=== PATIENT | female | born 1955 | race Caucasian/White ===

== ENCOUNTER 2020-01-20 14:57 | Emergency (ER) | payer BC ==
--- OUTSIDE RECORDS SUMMARY | 2020-01-20 15:00 | XMS REPORT ---
:1955 Author Organization [facility] Address [address] [place] [address] Phone Allergies, Adverse Reactions, Alerts Allergy Name Reaction Description Start Date Severity Status Provider LEVOQUIN Critical Active Jim Dicks OD SULFA Critical Active Jim Dicks OD Conditions or Problems Problem Name Problem Onset Status Entry Provider Comment Standard Annotate Code Date Date Description Hx of repair of V45.69 Active Jim Other states both eyes tear of retina by 01/08 01/08 Dicks OD following laser surgery of photocoagulation eye and adnexa Myopia - OU 367.1 Active Jim Myopia 01/08 01/08 Dicks OD 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 borderline 01/08 01/08 Dicks OD with findings, high borderline risk, bilateral findings, high risk Pseudophakia - V43.1 Active Jim Lens posterior bilateral 01/08 01/08 Dicks OD replaced by chamber other means IOL right; anterior chamber IOL left 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 Active Jim Regular astigmatism, 01/08 01/08 Dicks OD astigmatism bilateral Medication List Medication Instructions Start Stop Generic NDC Status Provider Patient Date Date Name Instruction ADDERALL AMPHETAMINE-DEXTROAMPHETAMINE 44362802941 Active Jim Active 20 MG Dicks ORAL OD TABLET ESTRADIOL ESTRADIOL 45751218516 Active Jim Active 0.5 MG Dicks ORAL OD TABLET FLONASE FLUTICASONE PROPIONATE 30710333099 Active Jim Active 50 Dicks MCG/ACT OD NASAL SUSPENSIO N HYDROCHLO HYDROCHLOROTHIAZIDE CAPS 95230193781 Active Jim Active ROTHIAZID Dicks E CAPSULE OD PRAVASTAT PRAVASTATIN SODIUM TABS 88635484101 Active Jim Active IN SODIUM Dicks TABLET OD TIMOLOL TIMOLOL MALEATE SOLN 71687151279 Active Jim Active MALEATE Dicks SOLUTION OD ZYRTEC CETIRIZINE HCL TABS 30836437932 Active Jim Active ALLERGY Dicks TABLET OD Procedures Code Procedure Name Date Entry Date Standard Description [id number] New Patient Intermediate [facility] - [address]65 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
--- OUTSIDE RECORDS SUMMARY | 2020-01-20 15:00 | XMS REPORT ---
:1955 Author Organization [facility] Address [address] [place] [id number] Care Team Providers Name Role Phone Unavailable Unavailable Unavailable Problems This patient has no known problems. Allergies, Adverse Reactions, Alerts This patient has no known allergies or adverse reactions. Medications This patient has no known medications.
--- NOTE | 2020-01-20 17:40 | ER ---
Nurse's Notes [facility] Name: Tiffanie Thompson Age: 64 yrs Sex: Female : 1955 Arrival Date: 01/20/2020 Time: 15:05 Bed 12 Private MD: Diagnosis: Pain in hip Presentation: 01/19 15:37 Chief complaint: Patient states: angelica hip pain "for a while". 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 Pt states "I have orders for x-rays but my part was too much and it's getting hard to walk anyway". Coronavirus screen: The patient has NOT traveled to a country currently being monitored by the [facility] [place] 2] within the last 14 days. Ebola Screen: Patient negative for fever greater than or equal to 101.5 degrees Fahrenheit, and additional compatible Ebola Virus Disease symptoms. Initial Sepsis Screen: Does the patient meet any 2 criteria? No. Patient's initial sepsis screen is negative. Does the patient have a suspected source of infection? No. Patient's initial sepsis screen is negative. Risk Assessment: Do you want to hurt yourself or someone else? Patient reports no desire to harm self or others. 15:37 Acuity: AMEYA 4 aa5 15:37 Method Of Arrival: Wheelchair aa5 Historical: - Allergies: 15:40 Levaquin; aa5 15:40 Sulfa (Sulfonamide Antibiotics); aa5 - PMHx: 15:40 Glaucoma; Hyperlipidemia; Hypertension; Kidney stones; aa5 - PSHx: 15:40 Lithotripsy; aa5 - Immunization history:: Adult Immunizations unknown. - Social history:: Smoking status: Patient/guardian denies using tobacco, but has a distant history of tobacco abuse. Screenin:45 Abuse screen: Denies threats or abuse. Denies injuries from another. Nutritional ph screening: No deficits noted. Tuberculosis screening: No symptoms or risk factors identified. Fall Risk None identified. Assessment: 17:45 General: Appears in no apparent distress. comfortable, well groomed, Behavior is calm, ph cooperative, appropriate for age. Pain: Complains of pain in right hip and left hip Pain began " months ago". Neuro: Level of Consciousness is awake, alert, obeys commands, Oriented to person, place, time, situation. Cardiovascular: Capillary refill < 3 seconds in bilateral fingers. Respiratory: Airway is patent Respiratory effort is even, unlabored. Derm: Skin is intact, is healthy with good turgor, Skin is pink, warm \\T\\ dry. 17:58 Reassessment: Patient is alert, oriented x 3, equal unlabored respirations, skin aa5 warm/dry/pink. Vital Signs: 15:37 BP 103 / 65; Pulse 80; Resp 16 S; Temp 98.3(O); Pulse Ox 98% on R/A; Weight 69.4 kg aa5 (R); Height 5 ft. 3 in. (160.02 cm) (R); Pain 8/10; 15:37 Body Mass Index 27.10 (69.40 kg, 160.02 cm) aa5 ED Course: 15:05 Patient arrived in ED. ag5 15:39 Triage completed. aa5 15:39 Arm band placed on. aa5 16:57 Adina Long RN is Primary Nurse. ph 17:06 Abraham Tadeo FNP-C is PHCP. la1 17:06 Gucci Nolan MD is Attending Physician. la1 17:45 Patient has correct armband on for positive identification. Bed in low position. Call ph light in reach. Side rails up X 1. 17:55 No provider procedures requiring assistance completed. Patient did not have IV access ph during this emergency room visit. Administered Medications: No medications were administered Outcome: 17:39 Discharge ordered by . la1 17:58 Medical screen evaluation completed per provider. Patient declined treatment. aa5 17:58 Condition: stable 18:05 Patient left the ED. aa5 Signatures: Liss Riggins RN RN aa5 Abraham Tadeo FNP-C [facility] Center[facility]ina Hannon RN RN Elizabeth Marshall 5
--- NOTE | 2020-01-20 17:41 | EDPHYS ---
Physician Documentation [facility] Name: Tiffanie Thompson Age: 64 yrs Sex: Female : 1955 Arrival Date: 01/20/2020 Time: 15:05 Bed 12 Private MD: ED Physician Gucci Nolan HPI: 01/19 17:40 This 64 yrs old Female presents to ER via Wheelchair with complaints of Hip la1 Pain. 17:40 The patient or guardian reports pain. Chronic PEDRITO hip pain. The complaints affect the la1 left hip and right hip. Onset: The symptoms/episode began/occurred 3 month(s) ago. Modifying factors: The symptoms are alleviated by OTC meds, the symptoms are aggravated by any movement, weight bearing. Associated signs and symptoms: Pertinent negatives: fever, incontinence. Severity of symptoms: At their worst the symptoms were moderate. The patient has not experienced similar symptoms in the past. pt has PEDRITO hip pain for the last few months, reports she was here to have outpatient xrays done but could not afford the copay. Pt was supposed to have PEDRITO hip xrays with weight bearing. Discussed that the patient would benefit from shopping around for cheaper prices and trying to get in with an orthopedic doctor. Historical: - Allergies: 15:40 Levaquin; aa5 15:40 Sulfa (Sulfonamide Antibiotics); aa5 - PMHx: 15:40 Glaucoma; Hyperlipidemia; Hypertension; Kidney stones; aa5 - PSHx: 15:40 Lithotripsy; aa5 - Immunization history:: Adult Immunizations unknown. - Social history:: Smoking status: Patient/guardian denies using tobacco, but has a distant history of tobacco abuse. ROS: 17:42 Constitutional: Negative for fever, chills, and weight loss, Eyes: Negative for injury, la1 pain, redness, and discharge, ENT: Negative for injury, pain, and discharge, Neck: Negative for injury, pain, and swelling, Cardiovascular: Negative for chest pain, palpitations, and edema, Respiratory: Negative for shortness of breath, cough, wheezing, and pleuritic chest pain, Abdomen/GI: Negative for abdominal pain, nausea, vomiting, diarrhea, and constipation, Back: Negative for injury and pain. 17:42 Skin: Negative for injury, rash, and discoloration, Neuro: Negative for headache, weakness, numbness, tingling, and seizure. 17:42 MS/extremity: Positive for pain, of the right hip and left hip. Exam: 17:43 Constitutional: This is a well developed, well nourished patient who is awake, alert, la1 and in no acute distress. Head/Face: Normocephalic, atraumatic. Cardiovascular: No pulse deficits. Respiratory: No increased work of breathing MS/ Extremity: Pulses equal, no cyanosis. Neurovascular intact. pain with ROM of hips, pain with weight bearing. Vital Signs: 15:37 BP 103 / 65; Pulse 80; Resp 16 S; Temp 98.3(O); Pulse Ox 98% on R/A; Weight 69.4 kg aa5 (R); Height 5 ft. 3 in. (160.02 cm) (R); Pain 8/10; 15:37 Body Mass Index 27.10 (69.40 kg, 160.02 cm) aa5 MDM: 17:06 Patient medically screened. la1 17:40 Medical screen evaluation completed. [facility] emergency medical condition absent. la1 17:43 Data reviewed: vital signs, nurses notes. Counseling: I had a detailed discussion with la1 the patient and/or guardian regarding: the historical points, exam findings, and any diagnostic results supporting the discharge/admit diagnosis, the need for outpatient follow up, a orthopedic surgeon, to return to the emergency department if symptoms worsen or persist or if there are any questions or concerns that arise at home. Administered Medications: No medications were administered Disposition: 18:25 Co-signature as Attending Physician, Gucci Nolan MD. rn Disposition: 01/20/20 17:39 Discharged to Home as Medical Screen. Impression: Pain in hip. - Condition is Stable. - Medication Reconciliation Form, Thank You Letter, Antibiotic Education, Prescription Opioid Use form. - Follow up: Private Physician; When: 1 week; Reason: Recheck today's complaints, Re-evaluation by your physician. - Problem is an ongoing problem. - Symptoms are unchanged. Signatures: Gucci Nolan MD MD rn Calderon, Audri, RN RN aa5 Abraham Tadeo, FINISH CLEANER-C FINISH CLEANER-Cla1 Corrections: (The following items were deleted from the chart) 18:05 17:39 01/20/2020 17:39 Discharged to Home as Medical Screen. Impression: Pain in hip. aa5 Condition is Stable. Forms are Medication Reconciliation Form, Thank You Letter, Antibiotic Education, Prescription Opioid Use. Follow up: Private Physician; When: 1 week; Reason: Recheck today's complaints, Re-evaluation by your physician. Problem is an ongoing problem. Symptoms are unchanged. la1
[2020-01-20 18:27] VITALS: BP 103/65; TEMP 98.3; O2SAT 98
== END 2020-01-20 18:05 | disposition home or self-care (01) ==
LOC: ER 14:57
DX: M25.552 Pain in left hip (principal); I10 Essential (primary) hypertension; Z88.1 Allergy status to other antibiotic agents; Z88.2 Allergy status to sulfonamides
CPT/HCPCS: 99281

== ENCOUNTER 2023-01-25 06:54 | Inpatient (IN) | payer MEDICARE ==
[2023-01-20 11:05] LABS: Absolute Lymphocytes (CBC) 2.3 K/uL (0.7-4.9); Hematocrit 37.2 % (36.0-45.0); Lymphocytes % 32.6 % (15.3-44.8); MCV 90.8 fL (80-100); MPV 6.5 fL (7.6-11.3)
[2023-01-20 11:10] LABS: Protime INR 0.96
[2023-01-20 11:19] LABS: Albumin 3.7 g/dL (3.4-5.0); Bilirubin Total 0.4 mg/dL (0.2-1.0); Potassium 3.3 mmol/L (3.5-5.1); Protein, Total 7.4 g/dL (6.4-8.2)
[2023-01-20 11:33] LABS: Specific Gravity 1.013 (1.005-1.030); Urine Bacteria <20 /HPF (<20); Urine Bilirubin NEGATIVE (Negative); Urine Blood Negative (Negative); Urine Clarity Clear (Clear); Urine Color Light-Yellow (Yellow); Urine Glucose NEGATIVE (Negative); Urine Protein NEGATIVE (Negative); Urine RBC <5 /HPF (None Seen); Urine Urobilinogen Normal (Normal); Urine pH 6.5 (5.0-7.0)
--- NOTE | 2023-01-20 12:36 | RAD REPORT ---
EXAM DESCRIPTION: [facility] Pa And Lat (2 Views)01/20/2023 10:46 am CLINICAL HISTORY: pre op right total hip COMPARISON: Chest Pa And Lat (2 Views) dated 12/18/2017; Chest Single View dated 03/03/2016; CHEST SING LE VIEW dated 10/10/2012; CHEST PA AND LAT 2 VIEW dated 12/20/2008 TECHNIQUE: PA and lateral views of the chest. FINDINGS: The lungs are clear. No pneumothorax or effusion. The cardiomediastinal contours are unrem arkable. IMPRESSION: No acute cardiopulmonary process.
[2023-01-25] MEDS ORDERED: CELECOXIB 100 MG CAPSULE ONE (07:02)
[2023-01-25] MEDS ORDERED: GABAPENTIN 100 MG CAP ONE (07:03)
[2023-01-25] MEDS ORDERED: Oxycodone HCl/Acetaminophen 1 TAB TAB ONE (07:03)
[2023-01-25] MEDS ORDERED: Ringers Lactate 1,000 ML IV ONE ×3 (07:04→11:34)
[2023-01-25] MEDS ORDERED: ACETAMINOPHEN 500 MG TAB ONE (07:04)
[2023-01-25] MEDS ORDERED: BUPIVACAINE 0.75% (PF) 2 ML SP ONE (07:04)
[2023-01-25] MEDS ORDERED: MIDAZOLAM HCL 2 MG/2 ML INJ ONE (07:07)
[2023-01-25] MEDS ORDERED: FENTANYL CITR 100 MCG/2 ML ONE (07:07)
[2023-01-25] MEDS ORDERED: propofoL 200 MG/20 ML VIAL IV ONE (07:07)
[2023-01-25] MEDS ORDERED: LIDOCAINE 2% MPF 5 ML VIAL ONE (07:08)
[2023-01-25] MEDS ORDERED: ONDANSETRON 4 MG/2 ML VIAL ONE (07:10)
[2023-01-25] MEDS ORDERED: EPINEPHRINE/PF 1 MG/ML AMP ONE (07:10)
[2023-01-25] MEDS ORDERED: MORPHINE SULFATE/PF 1 MG/ML (10 ML AMP) ONE (07:30)
[2023-01-25] MEDS: CEFAZOLIN SODIUM 2 GM/VIAL ONE ×2 (07:32→07:45)
[2023-01-25] MEDS: TRANEXAMIC ACID 1,000 MG/10 ML VIAL IV ONE ×4 (07:45→08:43)
[2023-01-25] MEDS ORDERED: EPHEDRINE SULF 50 MG/ML VIAL ONE ×2 (07:55→09:59)
[2023-01-25] MEDS ORDERED: Phenylephrine HCl 10 MG/ML 1 ML VIAL ONE (07:59)
[2023-01-25] MEDS ORDERED: GLYCOPYRROLATE 0.2 MG/ML SYR ONE (08:11)
[2023-01-25] MEDS ORDERED: dexAMETHasone 10 MG/ML VIAL ONE (08:17)
[2023-01-25] MEDS ORDERED: NS 0.9% VIAL 10 ML ONE ×2 (08:53→11:04)
[2023-01-25] MEDS ORDERED: ALBUMIN HUMAN 25% 100 ML IV ONE (10:43)
[2023-01-25] MEDS ORDERED: CEFAZOLIN SODIUM 1 GM/VIAL ONE (11:04)
[2023-01-25] MEDS ORDERED: KETOROLAC 30 MG/ML INJ ONE (11:15)
[2023-01-25] MEDS ORDERED: DOCUSATE NA 100 MG CAP PO PRN (11:15)
--- NOTE | 2023-01-25 11:15 | P.BOP ---
Preoperative diagnosis: right hip severe arhritis Postoperative diagnosis: same Primary procedure: right total hip arthoplasty Estimated blood loss: 200 ccs Anesthesia: General Complications: None Condition: Good
--- NOTE | 2023-01-25 11:29 | RAD REPORT ---
EXAM DESCRIPTION: RAD - Hip Right 1 View - 01/25/2023 10:45 am CLINICAL HISTORY: TOTAL HIP REPLACEMENT IN OR 5 COMPARISON: No comparisons FINDINGS: Intraoperative radiographs submitted right total hip arthroplasty procedure in progress. N o unexpected finding.
--- OUTSIDE RECORDS SUMMARY | 2023-01-25 11:58 | XMS REPORT | Continuity of Care Document ---
:[address] [facility] t Address [address] [facility] [place] [address] Care Team Providers Name Role Phone Heavenly Staley Primary Care Physician [phone] Nerissa Gutiérrez Attending Clinician Unavailable Anjali Gill Attending Clinician JIM_Herve Attending Clinician Unavailable Conner [place] Attending Clinician [phone] Hanny Arrington Attending Clinician Unavailable Jim Domínguez Attending Clinician [phone] Anna Cannon Attending Clinician Unavailable Kaushal MCGILL, Stefani Russell Attending Clinician Soraida Barreto Attending Clinician [phone] STEFANI PALM Attending Clinician Unavailable Hanny Arrington Attending Clinician Unavailable Neeta Larry Attending Clinician Unavailable Tasha Garza Attending Clinician Unavailable Doctor Unassigned, Cordry [place] Attending Clinician Unavailable Suzette Trevino Attending Clinician Unavailable Anna Cannon Attending Clinician Unavailable Rhiannon Hensley Attending Clinician Unavailable Moses, Liz Attending Clinician Unavailable OW_Herve Admitting Clinician Unavailable Conner [place] Unavailable [phone] Jim Domínguez Unavailable [phone] Payers Payer Name Policy Type Policy Number Effective Date Expiration Date S ource [employer] [id number] 2022 (MEDICARE 00:00:00 REPLACEMENT HMO) [employer] CI [id number] 2021 2022 [facility] (MEDICARE 00:00:00 00:00:00 Community REPLACEMENT HMO) Health [employer] CI [id number] 2020 2021 [facility] (MEDICARE 00:00:00 00:00:00 Community REPLACEMENT HMO) Health Problems Condition Condition Condition Status Onset Resolution Last Treating Co mments Source Name Details Category Date Date Treatment Clinician Date Keratitis, Condition Active 2019-112020-08-28 Cj [place] punctate 0-15 12:20:16 Conner Martin uni 00:00: ty 00 Health Encounter Encounter Disease Active Uni vers for for 8-18 [place] of [place] 00 [facility] for breast for breast Br anch cancer cancer History of History of Disease Active U nivers UTI UTI 8-18 ity of 00:00: [place] 00 Medical Branch Primary Condition Active 2021-04-01 Azar [place] egrosas open-angle 06-17 20:04:59 Conner Fay Co mmuni glaucoma, 00:00: ty bilateral, 00 Health moderate stage Hx of Condition Active 2020-06-17 [place], both eyes [facility] repair of 01-08 14:52:39 Jim Commu ni tear of 00:00: ty retina by 00 Health laser photocoagu lation Pseudophak Condition Active 2020-06-17 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, 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 [facility] ia - 2- 14:52:39 Jim chamber Communi bilateral 00:00: IOL ty 00 right; Health anterior chamber IOL left Regular Condition Active 2020-06-17 Bess Domínguez ortiz astigmatis 01-08 14:52:39 Jim Comm uni m, 00:00: ty bilateral 00 Health Myopia - Condition Active 2020-06-17 Azar Domínguez egacy OU 01-08 14:52:39 Jim Communi 00:00: ty 00 Health Vaginal Vaginal Disease Active Univers pessary pessary 02-03 ity of present present 00:00: [place] 00 Medical Branch Screening Screening Disease Active Overview: Univers for for 12-16 Added ity of colorectal colorectal 00:00: automatic [place] cancer cancer 00 ally from Medical request Branch for surgery [id number] 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 U nivers a of a of 07 ity of uterus uterus 00:00: [place] 00 Medical Branch Essential Essential Disease Active 2016-11 Uni vers hypertensi hypertensi 11-20 it y of on, benign [place] benign [place] [facility] [place] Vaginal Vaginal Disease Active 2016-11 Univers atrophy atrophy 11-20 ity of 00:00: [place] 00 Medical Branch Postmenopa Postmenopa Disease Active 2016-11 U nivers usal usal 07 ity of bleeding bleeding 00:00: [place] 00 [facility] Branch Vaginal Vaginal Disease Active 2016-11 Univers ulcer ulcer 11-20 ity of 00:00: [place] 00 [facility] Branch Cervical Cervical Disease Active 2016-11 Unive rs discharge discharge 11-20 ity of 00:00: [place] 00 [facility] Branch V76.11 - V76.11 - Diagnosis Active 2013-08-06 Memoria SCREEN SCREEN 08-02 14:22:00 l MAMMOGRA MAMMOGRA 00:01: Elvis n Active 00 08/02/2013 OPID [place] [id number] History of Problem C ommon 9106 gastroesop Spirit hageal - [facility] reflux [facility] (GERD) [facility] [id number] Primary Problem Commo n osteoarthr Spirit itis of - [facility] both hips [facility] [id number] Vaginal Problem Commo n prolapse [facility] - [facility] [id number] Hypertensi Problem Com mon on, Spirit unspecifie - [facility] d type [facility] [id number] Dyslipidem Problem Co mmon ia Spirit - [facility] [id number] Current Problem Common moderate Spirit episode of - [facility] major [facility] prior episode [id number] Glaucoma Problem Commo n of both Spirit eyes, - [facility] unspecifie [facility] d glaucoma [facility] Center Allergies, Adverse Reactions, Alerts Allergy Allergy Status Severity Reaction(s) Onset Inactive Treating Comm ents Source Name Type Date Date Clinician [place] - Propensi Active Intraven ty to 6-10 ous adverse 00:00: reaction 00 to drug Banana Propensi Active (Diagnos ty to 3-28 tic) - adverse 00:00: Injectio reaction 00 n to drug Levaquin Propensi Active ty to 1-24 adverse 00:00: reaction 00 to drug BANANA Food Active High [facility] allergy Criticali 8-04 Commun i (disorde ty 00:00: ty r) 00 Health LEVOQUIN Drug Active High [facility] allergy Criticali 2-25 Commun i (disorde ty 00:00: ty r) 00 Health SULFA Drug Active High [facility] allergy Criticali 2-25 Commun i (disorde ty 00:00: ty r) 00 Health Banana Propensi Active Unknown - Unive rs ty to See comments 201 ity of adverse 00:00: [place] reaction 00 Medical s Branch BANANA DRUG Active Unknown-Cmnt Univ ers INGREDI 201 ity of 00:00: [place] 00 Medical Branch SULFA Drug Active Rash 2015-11 Univers (SULFONA Class 0-11 ity of MIDE 00:00: [place] ANTIBIOT 00 Medical ICS) Branch Levoflox Propensi Active Itching 2015-11 Unive rs acin ty to 0-11 ity of adverse 00:00: [place] reaction 00 Medical s Branch Sulfa Propensi Active Rash 2015-11 Univers (Sulfona ty to 0-11 ity of mide adverse 00:00: [place] Antibiot reaction 00 Medica l ics) s Branch LEVOFLOX DRUG Active ITCHING 2015-11 Univers ACIN INGREDI 0-11 ity of 00:00: [place] 00 Medical Branch Banana Propensi Active ty to 1-13 adverse 00:00: reaction 00 to drug [id number] Drug Active itching Common allergy Spirit - [facility] banana banana Active rash Common allergen allergen Spirit ic ic - [facility] extract extract [facility] 0 Drug Active rash Common allergy Spirit - [facility] Social History Social Habit Start Date Stop Date Quantity Comments Source History of Common [facility] - Tobacco Use [facility] Sex Assigned At Common Sp raúl - [facility] History SDOH University o f Alcohol Binge [place] Medic al Branch Exposure to Not sure University of SARS-CoV-2 [place] [facility] (event) Branch History SDOH University o f Alcohol Frequency [place] M edical [facility] History SDOH University o f Alcohol Std [place] [facility] Drinks Branch time of call 2022-03-08 2022-03-08 03/08/2022 2:37 [facility] 14:36:42 14:36:42 PM Health Alcohol intake 2020-07-01 2020-07-01 Current drinker Unive rsity of 00:00:00 00:00:00 of alcohol [place] [facility] (finding) Branch Alcohol Comment 2017-09-20 2017-09-20 Very rare Universit y of 00:00:00 00:00:00 [facility] Tobacco Comment 2017-09-20 2017-09-20 quit 1981 Universit y of 00:00:00 00:00:00 [facility] Tobacco use and 2017-09-20 2017-09-20 Never used Universit y of exposure 00:00:00 00:00:00 [facility] Smoking Status Start Date Stop Date Source Former Smoker 2022-11-22 00:00:00 2022-11-22 00:00:00 Common S pirit - [facility] Medications Ordered Filled Start Stop Current Ordering Indication Dosage Frequency Signature Comments Components Source Medication Medication Date Date Medication? Clinician (SIG) Name Name TAKE No DIRECTED. 9- 00:00: 00 TAKE 1 2021-0 No TABLET BY 9-23 MOUTH ONCE 00:00: DAILY 00 TAKE 1 2021-0 No TABLET BY 8-17 MOUTH ONCE 00:00: DAILY 00 Dose 2021-0 No Unknown - 00:00: 00 lisinopril 2021- No 1mg 20 7-14 mg-hydrochl 00:00: orothiazide 00 25 mg tablet Dose 2021- No Unknown 7-14 00:00: 00 Dose 2021-0 No Unknown 6-28 00:00: 00 atorvastati 2021-0 No 1mg n 10 mg 6-17 tablet 00:00: 00 lisinopril 2021-0 No 1mg 20 6-10 mg-hydrochl 00:00: orothiazide 00 25 mg tablet (LATANOPROS 0 Yes Conner Fay INSTILL 1 [facility] T) 0.005 % 6-08 [place] DROP INTO Co mmuni SOLN 00:00: EACH EYE ty 00 AT NIGHT Health lisinopril 0 No 1mg 20 4-29 mg-hydrochl 00:00: orothiazide 00 25 mg tablet Dose 2021-0 No Unknown 3-28 00:00: 00 Dose 2021-0 No Unknown 3-28 00:00: 00 Dose 2021-0 No Unknown 3-28 00:00: 00 Dose 2021-0 No Unknown 3-28 00:00: 00 Dose 2-0 No Unknown 3-28 00:00: 00 Dose 2-0 No Unknown 3-28 00:00: 00 Dose 2-0 No Unknown 3-28 00:00: 00 Dose 2-0 No Unknown 3-28 00:00: 00 Dose 2-0 No Unknown 3-28 00:00: 00 Dose 2-0 No Unknown 3-28 00:00: 00 Dose 2-0 No Unknown 3-28 00:00: 00 Dose 2-0 No Unknown 3-28 00:00: 00 Dose 2-0 No Unknown 3-28 00:00: 00 Dose 2-0 No Unknown 3-28 00:00: 00 Dose 2-0 No Unknown 3-28 00:00: 00 lisinopril 2021-0 No 1mg 20 1-24 mg-hydrochl 00:00: orothiazide 00 25 mg tablet (PREDNISOLO 2020-11 Yes Conner Fay Instill 1 [facility] NE ACETATE) 1-08 [place] drop into C ommuni 1 % SUSP 00:00: left eye ty 00 twice a Health day (TOBRAMYCIN 2020-11 Yes Jim Domínguez Instill 1 [facility] ) 0.3 % 0-05 drop into Communi SOLN 00:00: affected ty 00 eye four Health times a day (PREDNISOLO 2019-11- No Jim Domínguez 1{Drop} 4xD Instill 1 [facility] NE ACETATE) 0-15 11-08 drop into Co mmuni 1 % SUSP 00:00: 00:00 left eye ty 00 :00 four times Health a day estradioL 1 Yes [id number] Insert Univers mg tablet 8-18 once ity of 00:00: quarter in [place] 00 the vagina Medical after Branch moistening with water twice weekly (say /Tue) at bedtime. estradioL 1 Yes [id number] Insert Univers mg tablet 8-18 once ity of 00:00: quarter in [place] 00 the vagina Medical after Branch moistening with water twice weekly (say /Tue) at bedtime. estradioL 1 Yes [id number] Insert Univers mg tablet 8-18 once ity of 00:00: quarter in [place] 00 the vagina Medical after Branch moistening with water twice weekly (say /Tue) at bedtime. estradioL 1 Yes [id number] Insert Univers mg tablet 8-18 once ity of 00:00: quarter in [place] 00 the vagina Medical after Branch moistening with water twice weekly (say /Tue) at bedtime. estradioL 1 Yes [id number] Insert Univers mg tablet 8-18 once ity of 00:00: quarter in [place] 00 the vagina Medical after Branch moistening with water twice weekly (say /Tue) at bedtime. TIMOLOL Yes Conner Fay 2{Drop} 2xD 1 drop in [facility] MALEATE 06-17 [place] both eyes Commu ni (ONCE-DAILY 00:00: Twice a ty ) (TIMOLOL Health MALEATE) 0.5 % SOLN (LATANOPROS 2021- No Conner Fay 2{Drop} 1xD 1 drop in [facility] T) 0.005 % 06-17 06-08 [place] both eyes C ommuni SOLN 00:00: 00:00 at night ty 00 :00 Health triamcinolo Yes [id number] Apply to [facility] ne -02 area(s) 3 ity of acetonide 00:00: (three) [place] 0.1 % 00 times Medical ointment daily. Branch triamcinolo Yes [id number] Apply to Univers ne -02 area(s) 3 ity of acetonide 00:00: (three) [place] 0.1 % 00 times Medical ointment daily. Branch triamcinolo 2020-0 Yes [id number] Apply to [facility] 1-02 area(s) 3 ity of acetonide 00:00: (three) [place] 0.1 % 00 times Medical ointment daily. Branch triamcinolo 2020-0 Yes [id number] Apply to [facility] ne 1-02 area(s) 3 ity of acetonide 00:00: (three) [place] 0.1 % 00 times Medical ointment daily. Branch triamcinolo 2020-0 Yes [id number] Apply to [facility] 1-02 area(s) 3 ity of acetonide 00:00: (three) [place] 0.1 % 00 times Medical ointment daily. Branch triamcinolo 2020-0 Yes [id number] Apply to [facility] 1-02 area(s) 3 ity of acetonide 00:00: (three) [place] 0.1 % 00 times Medical ointment daily. Branch estradiol 1 Yes [id number] Insert Univers mg tablet 05-14 once ity of 00:00: quarter in [place] 00 the vagina Medical after Branch moistening with water twice weekly (say Tu/Tue) at bedtime. estradiol 1 2020- No [id number] Insert Univers mg tablet 05-14 once ity of 00:00: 00:00 quarter in [place] 00 :00 the vagina Medical after Branch moistening with water twice weekly (say Tu/Tue) at bedtime. estradiol 1 2020- No [id number] Insert Univers mg tablet 05-14 once ity of 00:00: 00:00 quarter in [place] 00 :00 the vagina Medical after Branch moistening with water twice weekly (say Tu/Tue) at bedtime. ADDERALL 2018- Yes [facility] (AMPHETAMIN 2-25 Communi E-DEXTROAMP 00:00: ty HETAMINE) 00 Health 20 MG TABS (ESTRADIOL) 2018-0 Yes [facility] 0.5 MG TABS 2-25 Communi 00:00: ty 00 Health ZYRTEC 2018-0 Yes [facility] ALLERGY 2-25 Communi (CETIRIZINE 00:00: ty HCL TABS) 00 Health TABS FLONASE 50 2018-0 Yes [facility] MCG/ACT 2-25 Communi NASAL 00:00: ty SUSPENSION 00 Health PRAVASTATIN 2018- Yes [facility] SODIUM 2-25 Communi (PRAVASTATI 00:00: ty N SODIUM 00 Health TABS) TABS HYDROCHLORO 2018- Yes [facility] THIAZIDE 2-25 Communi (HYDROCHLOR 00:00: ty OTHIAZIDE 00 Health CAPS) CAPS TIMOLOL Yes [facility] MALEATE 2-25 Communi (TIMOLOL 00:00: ty MALEATE 00 Health SOLN) SOLN Oxyquinolin Yes [id number] .5{appl Insert 0.5 Univers e-Na Lauryl 1-15 04 icator} Applicator ity of Sulfate 00:00: s into [place] ([facility] 00 vagina Medical JELLY) SEE-INSTRU Branch 0.025-0.01 CTIONS. % Gel Apply 1/2 applicator per vagina twice weekly until discontinu e Oxyquinolin Yes [id number] .5{appl Insert 0.5 Univers e-Na Lauryl 1-15 04 icator} Applicator ity of Sulfate 00:00: s into [place] ([facility] 00 vagina Medical JELLY) SEE-INSTRU Branch 0.025-0.01 CTIONS. % Gel Apply 1/2 applicator per vagina twice weekly until discontinu e Oxyquinolin Yes [id number] .5{appl Insert 0.5 Univers e-Na Lauryl 1-15 04 icator} Applicator ity of Sulfate 00:00: s into [place] ([facility] 00 vagina Medical JELLY) SEE-INSTRU Branch 0.025-0.01 CTIONS. % Gel Apply 1/2 applicator per vagina twice weekly until discontinu e Oxyquinolin Yes [id number] .5{appl Insert 0.5 Univers e-Na Lauryl 1-15 04 icator} Applicator ity of Sulfate 00:00: s into [place] ([facility] 00 vagina Medical JELLY) SEE-INSTRU Branch 0.025-0.01 CTIONS. % Gel Apply 1/2 applicator per vagina twice weekly until discontinu e Oxyquinolin Yes [id number] .5{appl Insert 0.5 Univers e-Na Lauryl 1-15 04 icator} Applicator ity of Sulfate 00:00: s into [place] ([facility] 00 vagina Medical JELLY) SEE-INSTRU Branch 0.025-0.01 CTIONS. % Gel Apply 1/2 applicator per vagina twice weekly until discontinu e Oxyquinolin Yes [id number] .5{appl Insert 0.5 Univers e-Na Lauryl 1-15 04 icator} Applicator ity of Sulfate 00:00: s into [place] ([place] 00 vagina Medical JELLY) SEE-INSTRU Branch 0.025-0.01 CTIONS. % Gel Apply 1/2 applicator per vagina twice weekly until discontinu e amphetamine Yes Univer s -dextroamph 6-16 ity of etamine 30 00:00: [place] mg 24 hr 00 Medical capsule Branch amphetamine 0 2020- No Unive rs -dextroamph 6-16 -18 ity of etamine 30 00:00: 00:00 [place] mg 24 hr 00 :00 Medical capsule Branch amphetamine 2017-0 2020- No Unive rs -dextroamph 04-29-18 ity of etamine 30 00:00: 00:00 [place] mg 24 hr 00 :00 Medical capsule Branch esomeprazol 0 Yes Univer s e 20 mg 2-25 ity of capsule 00:00: Medical Branch esomeprazol 20180 Yes Univer s e 20 mg 2-25 ity of capsule 00:00: Medical Branch esomeprazol 2018-0 Yes Univer s e 20 mg 2-25 ity of capsule 00:00: Medical Branch esomeprazol 2018-0 Yes Univer s e 20 mg 2-25 ity of capsule 00:00: Medical Branch esomeprazol 20180 Yes Univer s e 20 mg 2-25 ity of capsule 00:00: [place] [facility] esomeprazol 20180 Yes Univer s e 20 mg 2-25 ity of capsule 00:00: [place] [facility] NexIUM 20 NexIUM 20 2018-0 No 1{capsu QD NexIUM 20 MG MG 2-25 le} MG 00:00: 00 NexIUM 20 NexIUM 20 2018-0 No 1{capsu QD NexIUM 20 MG MG 2-25 le} MG 00:00: 00 NexIUM 20 NexIUM 20 2018-0 No 1{capsu QD NexIUM 20 MG MG 2-25 le} MG 00:00: 00 NexIUM 20 NexIUM 20 2018-0 No 1{capsu QD NexIUM 20 MG MG 2-25 le} MG 00:00: 00 NexIUM 20 NexIUM 20 20180 No 1{capsu QD NexIUM 20 MG MG 2-25 le} MG 00:00: 00 estradiol 2016-11 Yes [id number] 2g Insert 2 g Univers 0.01 % (0.1 1-07 into ity of mg/gram) 00:00: vagina [place] vaginal 00 SEE-INSTRU Medica l cream CTIONS. Branch estradiol 2016-11 2020- No [id number] 2g Insert 2 g Univers 0.01 % (0.1 1-07 08-18 into ity of mg/gram) 00:00: 00:00 vagina [place] vaginal 00 :00 SEE-INSTRU Medica l cream CTIONS. Branch estradiol 2016-11 2020- No [id number] 2g Insert 2 g Univers 0.01 % (0.1 1-07 08-18 into ity of mg/gram) 00:00: 00:00 vagina [place] vaginal 00 :00 SEE-INSTRU Medica l cream CTIONS. Branch lisinopril- 2016-11 Yes Univer s hydrochloro 0-05 ity of thiazide 00:00: [place] 20-25 mg 00 Medical per tablet Branch pravastatin 2016-11 Yes Univer s 40 mg 0-05 ity of tablet 00:00: [place] 00 Medical Branch lisinopril- 2016-11 Yes Univer s hydrochloro 0-05 ity of thiazide 00:00: [place] 20-25 mg 00 Medical per tablet Branch pravastatin 2016-11 Yes Univer s 40 mg 0-05 ity of tablet 00:00: [place] 00 Medical Branch lisinopril- 2016-11 Yes Univer s hydrochloro 0-05 ity of thiazide 00:00: [place] 20-25 mg 00 Medical per tablet Branch pravastatin 2016-11 Yes Univer s 40 mg 0-05 ity of tablet 00:00: [place] 00 Medical Branch lisinopril- 2016-11 Yes Univer s hydrochloro 0-05 ity of thiazide 00:00: [place] 20-25 mg 00 Medical per tablet Branch pravastatin 2016-11 Yes Univer s 40 mg 0-05 ity of tablet 00:00: [place] 00 Medical Branch lisinopril- 2016-11 Yes Univer s hydrochloro 0-05 ity of thiazide 00:00: [place] 20-25 mg 00 Medical per tablet Branch pravastatin 2016-11 Yes Univer s 40 mg 0-05 ity of tablet 00:00: [place] 00 Medical Branch lisinopril- 2016-11 Yes Univer s hydrochloro 0-05 ity of thiazide 00:00: [place] 20-25 mg 00 Medical per tablet Branch pravastatin 2016-11 Yes Univer s 40 mg 0-05 ity of tablet 00:00: [place] 00 [facility] Branch Premarin 2015-0 No 1mg/gra 0.625 8-02 m mg/gram 00:00: vaginal 00 cream nitrofurant 2015-0 No 1mg oin 1-13 macrocrysta 00:00: l 100 mg 00 capsule Cosopt 22.3 2015-0 No 1mg/mL mg-6.8 1-13 mg/mL eye 00:00: drops 00 Cosopt 22.3 2015-0 No 1mg/mL mg-6.8 1-13 mg/mL eye 00:00: drops 00 lisinopril 2015-0 No 1mg 20 1-13 mg-hydrochl 00:00: orothiazide 00 25 mg tablet hydroCHLORO hydroCHLORO No hydroCHLOR thiazide thiazide Othiazide Potassium Potassium No Potassium Latanoprost Latanoprost No Latanopros 0.005 % 0.005 % t 0.005 % Lisinopril- Lisinopril- No Lisinopril hydroCHLORO hydroCHLORO -hydroCHLO thiazide thiazide ROthiazide 20-25 MG 20-25 MG 20-25 MG Multivitami Multivitami No Multivitam n n in Azithromyci Azithromyci No QD Azithromyc n 250 MG n 250 MG in 250 MG Potassium Potassium No Potassium hydroCHLORO hydroCHLORO No hydroCHLOR thiazide thiazide Othiazide Atorvastati Atorvastati No Atorvastat n Calcium n Calcium in Calcium 10 MG 10 MG 10 MG Lisinopril- Lisinopril- No Lisinopril hydroCHLORO hydroCHLORO -hydroCHLO thiazide thiazide ROthiazide 20-25 MG 20-25 MG 20-25 MG Cosopt Cosopt No Cosopt Multivitami Multivitami No Multivitam n n in Latanoprost Latanoprost No Latanopros 0.005 % 0.005 % t 0.005 % Pravastatin Pravastatin No 1{table QD Pravastati Sodium 40 Sodium 40 t} n Sodium MG MG 40 MG Azithromyci Azithromyci No QD Azithromyc n 250 MG n 250 MG in 250 MG Potassium Potassium No Potassium hydroCHLORO hydroCHLORO No hydroCHLOR thiazide thiazide Othiazide Atorvastati Atorvastati No Atorvastat n Calcium n Calcium in Calcium 10 MG 10 MG 10 MG Lisinopril- Lisinopril- No Lisinopril hydroCHLORO hydroCHLORO -hydroCHLO thiazide thiazide ROthiazide 20-25 MG 20-25 MG 20-25 MG Cosopt Cosopt No Cosopt Multivitami Multivitami No Multivitam n n in Latanoprost Latanoprost No Latanopros 0.005 % 0.005 % t 0.005 % Pravastatin Pravastatin No 1{table QD Pravastati Sodium 40 Sodium 40 t} n Sodium MG MG 40 MG Azithromyci Azithromyci No QD Azithromyc n 250 MG n 250 MG in 250 MG Potassium Potassium No Potassium hydroCHLORO hydroCHLORO No hydroCHLOR thiazide thiazide Othiazide Atorvastati Atorvastati No Atorvastat n Calcium n Calcium in Calcium 10 MG 10 MG 10 MG Lisinopril- Lisinopril- No Lisinopril hydroCHLORO hydroCHLORO -hydroCHLO thiazide thiazide ROthiazide 20-25 MG 20-25 MG 20-25 MG Cosopt Cosopt No Cosopt Multivitami Multivitami No Multivitam n n in Latanoprost Latanoprost No Latanopros 0.005 % 0.005 % t 0.005 % Pravastatin Pravastatin No 1{table QD Pravastati Sodium 40 Sodium 40 t} n Sodium MG MG 40 MG Atorvastati Atorvastati No Atorvastat n Calcium n Calcium in Calcium 10 MG 10 MG 10 MG Azithromyci Azithromyci No QD Azithromyc n 250 MG n 250 MG in 250 MG Cosopt Cosopt No Cosopt Pravastatin Pravastatin No 1{table QD Pravastati Sodium 40 Sodium 40 t} n Sodium MG MG 40 MG hydroCHLORO hydroCHLORO No hydroCHLOR thiazide thiazide Othiazide Potassium Potassium No Potassium Latanoprost Latanoprost No Latanopros 0.005 % 0.005 % t 0.005 % Lisinopril- Lisinopril- No Lisinopril hydroCHLORO hydroCHLORO -hydroCHLO thiazide thiazide ROthiazide 20-25 MG 20-25 MG 20-25 MG Multivitami Multivitami No Multivitam n n in Atorvastati Atorvastati No Atorvastat n Calcium n Calcium in Calcium 10 MG 10 MG 10 MG Azithromyci Azithromyci No QD Azithromyc n 250 MG n 250 MG in 250 MG Cosopt Cosopt No Cosopt Pravastatin Pravastatin No 1{table QD Pravastati Sodium 40 Sodium 40 t} n Sodium MG MG 40 MG Vital Signs Vital Name Observation Time Observation Value Comments Source height 2022-11-22 10:30:00 65 [in_i] [facility] weight 2022-11-22 10:30:00 167 [lb_av] [facility] temperature 2022-11-22 10:30:00 98.3 [degF] Common [facility] bmi 2022-11-22 10:30:00 27.79 kg/m2 [facility] blood pressure 2022-11-22 10:30:00 121 mm[Hg] [facility] - systolic [facility] blood pressure 2022-11-22 10:30:00 78 mm[Hg] [facility] - diastolic [facility] height 2022-10-25 11:00:00 65 [in_i] Common [facility] weight 2022-10-25 11:00:00 167.6 [lb_av] Common [facility] - [facility] temperature 2022-10-25 11:00:00 97.7 [degF] Common [facility] bmi 2022-10-25 11:00:00 27.89 kg/m2 [facility] oximetry 2022-10-25 11:00:00 98 % Common S pirit - [facility] respiratory rate 2022-10-25 11:00:00 17 /min Comm on [facility] - [facility] blood pressure 2022-10-25 11:00:00 122 mm[Hg] [facility] - systolic [facility] blood pressure 2022-10-25 11:00:00 78 mm[Hg] [facility] - diastolic [facility] Systolic blood 2020-07-01 20:51:00 118 mm[Hg] Univer sity of [facility] Diastolic blood 2020-07-01 20:51:00 78 mm[Hg] Unive rsity of [facility] Heart rate 2020-07-01 20:51:00 69 /min [facility] Body temperature 2020-07-01 20:51:00 36.94 [facility] Respiratory rate 2020-07-01 20:51:00 18 /min [facility] Body height 2020-07-01 20:51:00 156.2 cm [facility] Body weight 2020-07-01 20:51:00 66.134 kg [facility] BMI 2020-07-01 20:51:00 27.10 kg/m2 [facility] BP Systolic 2022-08-10 11:07:00 146 mm[Hg] BP Diastolic 2022-08-10 11:07:00 91 mm[Hg] Weight Measured 2022-08-10 11:07:00 168.50 pounds Height Measured 2022-08-10 11:07:00 63.00 inches Body Temperature 2022-08-10 11:07:00 98.50 degrees Heart Rate 2022-08-10 11:07:00 65.00 /min Respiratory Rate 2022-08-10 11:07:00 24.00 /min BP Systolic 2022-04-28 09:43:00 133 mm[Hg] BP Diastolic 2022-04-28 09:43:00 78 mm[Hg] Weight Measured 2022-04-28 09:43:00 169.40 pounds Height Measured 2022-04-28 09:43:00 63.00 inches Body Temperature 2022-04-28 09:43:00 97.80 degrees Heart Rate 2022-04-28 09:43:00 80.00 /min Respiratory Rate 2022-04-28 09:43:00 Respiratory Rate 2022-02-08 10:10:00 BP Systolic 2022-02-08 10:10:00 125 mm[Hg] BP Diastolic 2022-02-08 10:10:00 77 mm[Hg] Weight Measured 2022-02-08 10:10:00 165.20 pounds Height Measured 2022-02-08 10:10:00 63.00 inches Body Temperature 2022-02-08 10:10:00 98.70 degrees Heart Rate 2022-02-08 10:10:00 86.00 /min BP Systolic 2021-12-07 14:11:00 143 mm[Hg] BP Diastolic 2021-12-07 14:11:00 83 mm[Hg] Weight Measured 2021-12-07 14:11:00 167.60 pounds Height Measured 2021-12-07 14:11:00 63.00 inches Body Temperature 2021-12-07 14:11:00 97.40 degrees Heart Rate 2021-12-07 14:11:00 74.00 /min Respiratory Rate 2021-12-07 14:11:00 21.00 /min blood pressure, 2021-11-02 13:01:44 83 mm[Hg] [facility] Health blood pressure, 2021-11-02 13:01:44 125 mm[Hg] [facility] systolic Health pulse rate 2021-11-02 13:01:44 70 /min [facility], 2021-09-21 11:14:13 75 mm[Hg] [facility] diastolic Health blood pressure, 2021-09-21 11:14:13 116 mm[Hg] [facility] systolic Health pulse rate 2021-09-21 11:14:13 71 /min [facility] blood [facility], 2021-08-26 11:56:03 77 mm[Hg] [facility] diastolic Health blood pressure, 2021-08-26 11:56:03 114 mm[Hg] [facility] systolic Health pulse rate 2021-08-26 11:56:03 76 /min [facility] blood pressure, 2021-04-01 09:33:21 79 mm[Hg] [facility] diastolic Health blood pressure, 2021-04-01 09:33:21 121 mm[Hg] [facility] systolic Health BP Systolic 2016-06-15 13:00:00 112 mm[Hg] BP Diastolic 2016-06-15 13:00:00 74 mm[Hg] Weight Measured 2016-06-15 13:00:00 164.00 pounds Height Measured 2016-06-15 13:00:00 63.00 inches Body Temperature 2016-06-15 13:00:00 98.00 degrees Heart Rate 2016-06-15 13:00:00 74.00 /min Respiratory Rate 2016-06-15 13:00:00 BP Systolic 2015-11-26 12:12:00 BP Diastolic 2015-11-26 12:12:00 Weight Measured 2015-11-26 12:12:00 Height Measured 2015-11-26 12:12:00 Body Temperature 2015-11-26 12:12:00 Heart Rate 2015-11-26 12:12:00 Respiratory Rate 2015-11-26 12:12:00 BP Systolic 2015-11-26 11:51:00 BP Diastolic 2015-11-26 11:51:00 Weight Measured 2015-11-26 11:51:00 Height Measured 2015-11-26 11:51:00 Body Temperature 2015-11-26 11:51:00 Heart Rate 2015-11-26 11:51:00 Respiratory Rate 2015-11-26 11:51:00 BP Systolic 2015-11-26 11:08:00 112 mm[Hg] BP Diastolic 2015-11-26 11:08:00 78 mm[Hg] Weight Measured 2015-11-26 11:08:00 162.20 pounds Height Measured 2015-11-26 11:08:00 63.00 inches Body Temperature 2015-11-26 11:08:00 98.70 degrees Heart Rate 2015-11-26 11:08:00 72.00 /min Respiratory Rate 2015-11-26 11:08:00 16.00 /min BP Systolic 2015-11-26 11:01:00 112 mm[Hg] BP Diastolic 2015-11-26 11:01:00 78 mm[Hg] Weight Measured 2015-11-26 11:01:00 162.20 pounds Height Measured 2015-11-26 11:01:00 63.00 inches Body Temperature 2015-11-26 11:01:00 98.70 degrees Heart Rate 2015-11-26 11:01:00 72.00 /min Respiratory Rate 2015-11-26 11:01:00 16.00 /min Procedures Procedure Date / Time Performing Clinician Source Performed Est Patient Intermediate 2021-11-02 13:20:53 Conner Lincoln [facility] Opt - 25520 Health Est Patient Intermediate 2021-09-21 11:52:23 Conner Lincoln [facility] 50279 Health Est Patient Intermediate 2021-08-26 12:55:50 Conner Lincoln [facility] Opt - 36039 Health Est Patient Intermediate 2021-08-18 15:46:24 Jim Domínguez [facility] Opt - 61418 Health Est Patient Intermediate 2021-04-01 10:47:55 Conner Lincoln [facility] 57855 Health VISUAL FIELD XM UNI/BI 2021-04-01 10:46:26 Conner Lincoln [facility] W/INTERP EXTENDED EXAM Health Est Patient 2020-08-28 12:09:40 [facility] 06757 BI SCREENING 2020-07-15 18:45:31 Stefani Palm [facility] TOMOSYNTHESIS BILATERAL Medical Branch ASSIGNMENT OF BENEFITS 2020-07-01 20:10:10 Doctor Unassigned, No [facility] Name Medical Branch POCT URINALYSIS W/O 2020-07-01 00:00:00 Stefani Palm [facility] SPECIFIC GRAVITY Medical Branch Oph US Dx Crnl 2020-06-17 14:53:32 Conner Lincoln [facility] Consumr Pachymetry UNI/BI Health COMPUTERIZED OPHTHALMIC 2020-06-17 14:53:14 Conner Lincoln [facility] IMAGING OPTIC NERVE Health Est Patient 2020-06-17 14:52:38 [facility] Health 60506 Spherocyl, bif, plano to 2019-06-26 12:09:08 Anna Cannon [facility] +/- 4.00d sphere, 0.12 Health to 2.00d cyl, per lens Frames, purchases 2019-06-26 12:08:54 Anna Cannon [facility] [employer] New Patient Intermediate 2019-01-08 14:47:49 Jim Domínguez [facility] - 40454 Health Plan of Care Planned Activity Planned Date Details Comments Source Goal Plan of Care Note [code = 16458-3] Goal Plan of Care Note [code = 22824-2] Goal Plan of Care Note [code = 24441-8] Goal Plan of Care Note [code = 46128-8] Goal Plan of Care Note [code = 81649-7] Goal Plan of Care Note [code = 60295-7] Goal Plan of Care Note [code = 58066-5] Goal Plan of Care Note [code = 21522-5] Goal Plan of Care Note [code = 71143-2] Goal Plan of Care Note [code = 26471-4] Goal Plan of Care Note [code = 27645-9] Goal Plan of Care Note [code = 19160-2] Goal Plan of Care Note [code = 29677-5] Goal Plan of Care Note [code = 79048-0] Goal Plan of Care Note [code = 19241-5] Encounters Start End Encounter Admission Attending Care Care Encounter Source Date/Time Date/Time Type Type Clinicians Facility Department ID 2023-01-18 [place] ST[facility] [id number] Common 10:52:[id number] [facility] 2023-01-11 Out[place], STTHERONLC STLC [id number] Common 11:54:[id number] [facility] 2023-01-10 Outpatient [place], STTHERONLC STLC [id number] Common 14:35:[address] [facility] 2023-01-03 Outpatient [place], STDIANNE STLC [id number] Common 15:49:[id number] [facility] 2022-12-30 Outpatient [place], STTHERONLC STLC [id number] Common 11:26:[id number] [facility] 2022-11-22 Outpatient [place], STLMLC STLMLC [id number] Common 15:01:[id number] [facility] 2022-11-19 Outpatient Marla, STTHERONLC STLMLC [id number] Common 09:18:[id number] [facility] 2022-10-25 Outpatient Marla, STTHERONLC STLMLC [id number] Common 10:14:[id number] [facility] 2022-12-21 2022-12-21 CAV Tomora 2.16.840. [id number]. CLAC [id number] Devoted 21:00:00 22:00:00 Gill [id number] [id number] Medical [id number] 2022-12-21 2022-12-21 Outpatient OWENS_T DMG [facility] [id number] Devoted 00:00:00 00:00:00 [id number] Medica l Group 2022-11-30 2022-11-30 (TEL) STLMLC STLMLC [id number] Co mmon 00:00:00 00:00:00 [facility] 2022-11-24 2022-11-24 Outpatient [facility] [id number] Devoted 00:00:00 00:00:00 [id number] Medica l Group 2022-11-22 2022-11-22 OFFICE STLMLC STLMLC [id number] Co mmon 00:00:00 00:00:00 VISIT NEW Spir it PT LEVEL 3 - [facility] 2022-11-22 2022-11-22 (TEL) STLMLC STLMLC [id number] Co mmon 00:00:00 00:00:00 [facility] 2022-11-03 2022-11-03 (TEL) STLMLC STLMLC [id number] Co mmon 00:00:00 00:00:00 [facility] 2022-10-25 2022-10-25 OFFICE STLMLC STLMLC [id number] Co mmon 00:00:00 00:00:00 VISIT NEW Spir it PT LEVEL 4 - [facility] 2022-08-11 2022-08-11 Outpatient DMG DMG [id number]- [id number] Devoted 00:00:00 00:00:00 [id number] Medica l Group 2022-08-10 2022-08-10 Outpatient [id number] 00:00:00 00:00:00 Visit [id number] 2021-11-02 2021-11-02 Office Conner Lincoln [facility] E ncounter/ Legacy 00:00:00 00:00:00 Visit Hanny Arrington [id number] Communi [id number] Health 2021-09-21 2021-09-21 Office Conner Lincoln [facility] E ncounter/ Legacy 00:00:00 00:00:00 Visit Hanny Arrington [id number] Communi [id number] [facility] 2021-08-26 2021-08-26 Office Conner Lincoln [facility] E ncounter/ Legacy 00:00:00 00:00:00 Visit Hanny Arrington [id number] Communi [id number] Health 2021-08-18 2021-08-18 Office Jim Domínguez [facility] Encoun ter/ Legacy 00:00:00 00:00:00 Visit Anna Cannon [id number] Communi [id number] [facility] 2021-07-30 2021-07-30 Stefani Red [facility] [id number] Univers 00:00:00 00:00:00 Cam Luis Fernando 350.1.13.10 i ty [facility] 4.2.7.2.686 Kathia fay Professio [id number] Va dical nal [address] [facility] 2021-04-01 2021-04-01 Office Connre Lincoln [facility] E ncounter/ Legacy 00:00:00 00:00:00 Visit Soraida Barreto [id number] Communi [id number] Health 2020-11-20 2020-11-20 Outpatient R STEFANI PALM [facility] [id number] Univers 15:00:00 15:00:00 ity [facility] 2020-10-30 2020-10-30 Outpatient R STEFANI PLAM [facility] [id number] Univers 15:00:00 15:00:00 ity [facility] 2020-10-01 2020-10-01 [facility] [id number] Univers 09:30:00 09:[facility]00 [facility] 2020-08-28 2020-08-28 [facility]/ Legacy 00:00:00 00:00:00 Visit Conner Fay [id number] Co mmuni [id number] [facility] 2020-08-28 2020-08-28 Office MUNA Lincoln [facility] Encounter/ Legacy 00:00:00 00:00:00 Visit Conner Fay [id number] Co mmuni [id number] [facility] 2020-08-28 2020-08-28 Office Conner Lincoln [facility] E ncounter/ Legacy 00:00:00 00:00:00 Visit Hanny Arrington [id number] Communi [id number] [facility] 2020-08-21 2020-08-21 Office Hanny Arrington [facility] En counter/ Legacy 00:00:00 00:00:00 Visit Neeta Larry [id number] Communi [id number] [facility] 2020-08-18 2020-08-18 Office Hanny Arrington [facility] En counter/ Legacy 00:00:00 00:00:00 Visit Tasha Garza [id number] Communi [id number] [facility] 2020-07-15 2020-07-15 [facility] Kaushal [facility] [id number] Univers 13:00:00 23:59:00 Encounter Drew Gould [id number] ity massiel Allan 4.2.7.2.686 [facility] [id number] [address] 2020-07-15 2020-07-15 Outpatient R STEFANI PALM [facility] [id number] Univers 00:00:00 [facility] 2020-07-01 2020-07-01 Office Kaushal [facility] [id number] Univers 15:11:48 16:26:16 Visit Drew Gould 350.1.13.10 i ty [facility] 4.2.7.2.686 Kathia fay Professio [phone] Va dical [address] 2020-07-01 2020-07-01 Outpatient R STEFANI PALM [facility] [id number] Univers 15:00:00 15:00:00 ity of [facility] 2020-07-01 2020-07-01 Orders Doctor REJI [id number] Univers 00:00:00 00:00:00 Only Unassigned, MORRO 350.1.13.10 ity of [facility] 4.2.7.2.686 Robert darrel [id number] [address] 2020-06-30 2020-06-30 Office MUNA Lincoln [facility] Encounter/ Legacy 00:00:00 00:00:00 Visit Conner Fay [id number] Co mmuni [id number] [facility] 2020-06-17 2020-06-17 Office Salazar [facility] Encounter/ Legacy 00:00:00 00:00:00 Visit Conner Mack [id number] Co mmuni [id number] [facility] 2020-06-17 2020-06-17 Office Salazar [facility] Encounter/ Legacy 00:00:00 00:00:00 Visit Conner Fay [id number] Co mmuni [id number] [facility] 2020-06-17 2020-06-17 Office Salazar [facility] Encounter/ Legacy 00:00:00 00:00:00 Visit Conner Fay [id number] Co mmuni [id number] [facility] 2020-06-17 2020-06-17 Office Conner Lincoln [facility] E ncounter/ Legacy 00:00:00 00:00:00 Visit Hanny Arrington [id number] Communi [id number] [facility] 2020-06-17 2020-06-17 [facility] En[facility] / Legacy 00:00:00 00:00:00 Visit Hanny [id number] [facility] heath [id number] [facility] 2020-06-17 2020-06-17 Office [facility] En[facility]/ Legacy 00:00:00 00:00:00 Visit Conner Fay [id number] Co mmuni 948191 ty Health 2020-06-16 2020-06-16 Office Uriel [facility] Encounter/ Legacy 00:00:00 00:00:00 Visit Suzette [id number] Co mmuni 639392 ty Health 2019-07-13 2019-07-13 Office CannonMUNA martinez [facility] Encounter / Legacy 00:00:00 00:00:00 Visit Anna [id number] Com heath 534404 ty Health 2019-07-04 2019-07-04 Office Madan [facility] Encoun ter/ Legacy 00:00:00 00:00:00 Visit Rhiannon campbell [id number] Co mmuni 996763 ty Health 2019-06-27 2019-06-27 Office Jim Domínguez [facility] Encoun ter/ Legacy 00:00:00 00:00:00 Visit [id number] Com heath 771858 ty Health 2019-06-26 2019-06-26 Office Cannon, [facility] Encounter / Legacy 00:00:00 00:00:00 Visit Anna [id number] Com heath 249809 ty Health 2019-01-08 2019-01-08 Office Jim Domínguez [facility] Encoun ter/ Legacy 00:00:00 00:00:00 Visit [id number] Com heath 393552 ty Health 2019-01-08 2019-01-08 Office Jim Domínguez [facility] Encoun ter/ Legacy 00:00:00 00:00:00 Visit [id number] Com heath 155066 ty Health 2019-01-08 2019-01-08 Office Jim Domínguez [facility] Encoun ter/ Legacy 00:00:00 00:00:00 Visit [id number] Com heath 808610 ty Health 2019-01-08 2019-01-08 Office Jim Domínguez [facility] Encoun ter/ Legacy 00:00:00 00:00:00 Visit DavisAnna [id number] Communi 861674 ty Health 2019-01-08 2019-01-08 Office Moses [facility] Encounter/ Legacy 00:00:00 00:00:00 Visit Liz [id number] [facility] heath [id number] [facility] 2013-08-06 2013-08-06 OD CHERI ALONZO [id number] Memoria 14:12:00 14:12:00 00 azar Edmund 2013-08-06 2013-08-06 OD CHERI ALONZO [id number] Memoria 14:12:00 14:12:00 00 azar Edmund Results Test Description Test Time Test Comments Results Result Comments Source HEMOGLOBIN A1c 2022-08-12 07:34:43 Test Item Value Reference Range Interpretation Comme nts HEMOGLOBIN A1c (test code = 6.0 % 4.2-5.6 H UNLESS OTHERWISE INDICATED, ALL 62121) TESTING PERFORM ED ATCLINICAL PATHOLOGY [facility]. [address] [place] [address] RAIL TRANSPORTATION TABELER: RENATA PENA M.D. CLIA NUMBER [id number] CAP ACCREDITATION N O. [id number] COMPREHENSIVE METABOLIC [id number] 05:33:56 Test Item Value Reference Range Interpretation Comments GLUCOSE (test code = 109 MG/DL 70-99 H 2216) BUN (test code = 20 MG/DL 8-23 2207) CREATININE (test 0.98 MG/DL 0.60-1.30 code = 2214) eGFR (2020 CKD-EPI) 64 ML/MIN/1.73 >60 (test code = 91060) CALC BUN/CREAT (test 20 RATIO 6-28 code = 2235) SODIUM (test code = 147 MEQ/L 133-146 H 2230) POTASSIUM (test code 4.2 MEQ/L 3.5-5.4 = 222) CHLORIDE (test code 111 MEQ/L 95-107 H = 2215) CARBON DIOXIDE (test 26 MEQ/L 19-31 code = 2206) CALCIUM (test code = 9.6 MG/DL 8.5-10.5 2208) PROTEIN, TOTAL (test 6.9 G/DL 6.1-8.3 code = 2229) ALBUMIN (test code = 4.3 G/DL 3.5-5.2 2200) CALC GLOBULIN (test 2.6 G/DL 1.9-3.7 code = 2240) CALC A/G RATIO (test 1.7 RATIO 1.0-2.6 code = 2234) BILIRUBIN, TOTAL 0.3 MG/DL See_Comment [Automated message] (test code = 2207) The syste m which generated this result transmit fermin reference range : <=1.2. The refe rence range was not u sed to interpret th is result as normal/abnormal . ALKALINE PHOSPHATASE 67 U/L 40-140 (test code = 2204) AST (test code = 14 U/L 9-40 2217) ALT (test code = 17 U/L 5-40 2218) LIPID [id number] 05:33:56 Test Item Value Reference Range Interpretation Comments CHOLESTEROL (test 160 MG/DL <200 code = 2210) TRIGLYCERIDES (test 168 MG/DL <150 H code = 2232) HDL CHOLESTEROL (test 45 MG/DL >39 code = 2220) CALC LDL CHOL (test 88 MG/DL <100 NOTE: C ALCULATED LDL code = 2237) IS BASED ON YONATAN-MCKENZIE METHOD WHICHINCLUDES ADJUSTABLE TRIGLYCERIDE:VL DL CHOLESTEROL RAT IO.THIS FACTOR VARIES B Y MEASURED TRIGLY CERIDE AND NON-HDLCHOL ESTEROL CONCENTRATIONS WITH INCREASED CALCU LATED LDL SEENIN HIGH ER TRIGLYCERIDE OR LOWER NON-HDL SPECIME NS. FOR MOREINFORMATION , SEE CLIENT ANNOUNCE MENT AT [email or web address] RISK RATIO LDL/HDL 1.96 RATIO <3.22 (test code = 2238) CALCIUM, [id number] 14:24:05 Test Item Value Reference Range Interpretation Comments CALCIUM, IONIZED (test code = 5.12 MG/DL 4.70-5.90 ) VITAMIN D, 25 [id number] 06:48:25 Test Item Value Reference Range Interpretation Comments VITAMIN D, 25 OH 39 NG/ML SEE BELOW NOTE: 25-H YDROXYVITAMIN D (test code = 4958) ASSAY INC LUDES 25-HYDROXYVITAM IN D2 AND D3. METHODOLOGY IS CHEMILUMINESCEN T IMMUNOASSAY. INTERPRETIVE RA NGES PEDIATRIC (<17 YEARS) . . . . . . . . . . . NG/ML 20-100ADULT: IN SUFFICIENT . . . . . . . . . . . . . . NG/ML <20 SUBOP TIMAL . . . . . . . . . . . . . . . NG/ML 20-29 OPT IMAL . . . . . . . . . . . . . . . . . NG/ML 30-100 UN LESS OTHERWISE INDIC ATED, ALL TESTING PERFORM ED ATCLINICAL PATH OLOGY LABORATORIES, I [address] [address] LABORATORY DIRE CTOR: Ziggy CAMPOS CLIA NUMBER [id number] CAP ACCREDITATION N O. [id number] IONIZED CALCIUM, [id number] 00:00:00 Test Item Value Reference Range Interpretation Comments CALCIUM, IONIZED (test code = 5.12 MG/DL 21243) VITAMIN D, 25 [id number] 00:00:00 Test Item Value Reference Range Interpretation Comments VITAMIN D, 25 OH (test code = 4958) 39 NG/ML VITAMIN D, 25 [id number] 00:00:00 Test Item Value Reference Range Interpretation Comments VITAMIN D, 25 OH (test code = 4958) 39 NG/ML IONIZED CALCIUM, [id number] 00:00:00 Test Item Value Reference Range Interpretation Comments CALCIUM, IONIZED (test code = 5.12 MG/DL 94937) ALBUMIN/CREATININE RATIO, URINE, [id number] 06:08:31 Test Item Value Reference Range Interpretation Comments CREATININE, URINE, 82.6 MG/DL NOT ESTAB RANDOM (test code = 2072) ALBUMIN, URINE, 1.8 MG/DL NOT ESTAB RANDOM (test code = 21213) CALC 22 MG/G <30 Note: Albumin/ Creatinine ALBUMIN/CREAT, RND ratio ref erence interval (test code = reflects ADA [place] NKF [address]27) guidelines. UNL ESS OTHERWISE INDIC ATED, ALL TESTING PERFORM ED ATCLINICAL PATH OLOGY LABORATORIES, I [place]. [address] [place] [address] LABORATORY DIRE CTOR: Ziggy CAMPOS CLIA NUMBER [id number] CAP ACCREDITATION N O. [id number] PTH, INTACT, WITH CALCIUM, PHOSPHORUS, [id number] 05:24:42 Test Item Value Reference Range Interpretation Comments INTACT PTH (test code = 5005) 31 PG/ML 15-65 CALCIUM (test code = 2209) 11.0 MG/DL 8.5-10.5 H PHOSPHORUS (test code = 2227) 3.9 MG/DL 2.5-4.5 CREATININE (test code = 2214) 1.20 MG/DL 0.60-1.30 eGFR (2020 CKD-EPI) (test code 51 ML/MIN/1.73 >60 L = 72676) COMPREHENSIVE METABOLIC [id number] 05:24:42 Test Item Value Reference Range Interpretation Comments GLUCOSE (test code = 110 MG/DL 70-99 H 2216) BUN (test code = 28 MG/DL 8-23 H 2207) CREATININE (test 1.20 MG/DL 0.60-1.30 code = 2214) eGFR (2020 CKD-EPI) 51 ML/MIN/1.73 >60 L (test code = 93635) CALC BUN/CREAT (test 23 RATIO 6-28 code = 2235) SODIUM (test code = 141 MEQ/L 629-726 2065) POTASSIUM (test code 4.0 MEQ/L 3.5-5.4 = 2227) CHLORIDE (test code 102 MEQ/L 95-107 = 2214) CARBON DIOXIDE (test 25 MEQ/L 19-31 code = 220) CALCIUM (test code = 11.0 MG/DL 8.5-10.5 H 2208) PROTEIN, TOTAL (test 7.5 G/DL 6.1-8.3 code = 222) ALBUMIN (test code = 4.7 G/DL 3.5-5.2 2200) CALC GLOBULIN (test 2.8 G/DL 1.9-3.7 code = 2240) CALC A/G RATIO (test 1.7 RATIO 1.0-2.6 code = 2234) BILIRUBIN, TOTAL 0.4 MG/DL See_Comment [Automated message] (test code = 2207) The syste m which generated this result transmit fermin reference range : <=1.2. The refe rence range was not u sed to interpret th is result as normal/abnormal . ALKALINE PHOSPHATASE 66 U/L 40-140 (test code = 2204) AST (test code = 11 U/L 9-40 2217) ALT (test code = 16 U/L 5-40 2218) LIPID [id number] 05:24:42 Test Item Value Reference Range Interpretation Comments CHOLESTEROL (test 280 MG/DL <200 H code = 2210) TRIGLYCERIDES (test 352 MG/DL <150 H code = 2232) HDL CHOLESTEROL (test 46 MG/DL >39 code = 2220) CALC LDL CHOL (test 174 MG/DL <100 H NOTE: C ALCULATED LDL code = 2237) IS BASED ON YONATAN-MCKENZIE METHOD WHICHINCLUDES ADJUSTABLE TRIGLYCERIDE:VL DL CHOLESTEROL RAT IO.THIS FACTOR VARIES B Y MEASURED TRIGLY CERIDE AND NON-HDLCHOL ESTEROL CONCENTRATIONS WITH INCREASED CALCU LATED LDL SEENIN HIGH ER TRIGLYCERIDE OR LOWER NON-HDL SPECIME NS. FOR MOREINFORMATION , SEE CLIENT ANNOUNCE MENT AT [email or web address] RISK RATIO LDL/HDL 3.78 RATIO <3.22 H (test code = 2238) HEMOGLOBIN [id number] 04:12:46 Test Item Value Reference Range Interpretation Comments HEMOGLOBIN A1c (test code = 09569) 5.9 % 4.2-5.6 H CBC W/AUTO DIFF WITH [id number] 03:31:03 Test Item Value Reference Range Interpretation Comments WBC (test code = 8.3 K/UL 3.5-11.0 1001) RBC (test code = 4.37 M/UL 3.80-5.40 1002) HEMOGLOBIN (test code 13.5 G/DL 11.5-15.5 = 1003) HEMATOCRIT (test code 37.8 % 34.0-45.0 = 1004) MCV (test code = 86.5 fL 80.0-99.0 1005) MCH (test code = 30.9 PG 25.0-33.0 1006) MCHC (test code = 35.7 G/DL 31.0-36.0 1007) RDW (test code = 12.6 % 11.5-15.0 1038) NEUTROPHILS (test 50.1 % code = 1008) LYMPHOCYTES (test 37.7 % code = 1010) MONOCYTES (test code 7.8 % = 1011) EOSINOPHILS (test 3.8 % code = 1012) BASOPHILS (test code 0.4 % = 1013) IMMATURE GRANULOCYTES 0.2 % (test code = 1036) NUCLEATED RBCS (test 0.0 /100 WBC'S See_Comment [Aut omated code = 1065) message] The sy stem which generated this result transmitted reference range : 0.0. The refere nce range was not u sed to interpret th is result as normal/abnormal . PLATELET COUNT (test 345 K/UL 130-400 code = 1015) ABSOLUTE NEUTROPHILS 4.14 K/UL 1.50-7.50 (test code = 1066) ABSOLUTE LYMPHOCYTES 3.11 K/UL 1.00-4.00 (test code = 1067) ABSOLUTE MONOCYTES 0.64 K/UL 0.20-1.00 (test code = 1068) ABSOLUTE EOSINOPHILS 0.31 K/UL 0.00-0.50 (test code = 1040) ABSOLUTE BASOPHILS 0.03 K/UL 0.00-0.20 (test code = 1069) ABS IMMATURE 0.02 K/UL 0.00-0.10 GRANULOCYTES (test code = 1020) ABS NUCLEATED RBCS 0.00 K/UL 0.00-0.11 (test code = 13796) PTH, INTACT, WITH CALCIUM, PHOSPHORUS, [id number] 00:00:00 Test Item Value Reference Range Interpretation Comments INTACT PTH (test code = 5005) 31 PG/ML CALCIUM (test code = 2209) 11.0 MG/DL PHOSPHORUS (test code = 2227) 3.9 MG/DL CREATININE (test code = 2214) 1.20 MG/DL eGFR (2020 CKD-EPI) (test code 51 ML/MIN/1.73 = 85923) PTH, INTACT, WITH CALCIUM, PHOSPHORUS, [id number] 00:00:00 Test Item Value Reference Range Interpretation Comments INTACT PTH (test code = 5005) 31 PG/ML CALCIUM (test code = 2209) 11.0 MG/DL PHOSPHORUS (test code = 2227) 3.9 MG/DL CREATININE (test code = 2214) 1.20 MG/DL eGFR (2020 CKD-EPI) (test code 51 ML/MIN/1.73 = 76025) COMPREHENSIVE METABOLIC [id number] 00:00:00 Test Item Value Reference Range Interpretation Comments GLUCOSE (test code = 2217) 110 MG/DL BUN (test code = 2208) 28 MG/DL CREATININE (test code = 2214) 1.20 MG/DL eGFR (2020 CKD-EPI) (test code 51 ML/MIN/1.73 = 88889) CALC BUN/CREAT (test code = 23 RATIO 2235) SODIUM (test code = 2231) 141 MEQ/L POTASSIUM (test code = 2228) 4.0 MEQ/L CHLORIDE (test code = 2215) 102 MEQ/L CARBON DIOXIDE (test code = 25 MEQ/L 220) CALCIUM (test code = 2209) 11.0 MG/DL PROTEIN, TOTAL (test code = 7.5 G/DL 2228) ALBUMIN (test code = 2201) 4.7 G/DL CALC GLOBULIN (test code = 2.8 G/DL 2240) CALC A/G RATIO (test code = 1.7 RATIO 2234) BILIRUBIN, TOTAL (test code = 0.4 MG/DL 2206) ALKALINE PHOSPHATASE (test 66 U/L code = 2204) AST (test code = 2218) 11 U/L ALT (test code = 2219) 16 U/L COMPREHENSIVE METABOLIC [id number] 00:00:00 Test Item Value Reference Range Interpretation Comments GLUCOSE (test code = 2217) 110 MG/DL BUN (test code = 2208) 28 MG/DL CREATININE (test code = 2214) 1.20 MG/DL eGFR (2020 CKD-EPI) (test code 51 ML/MIN/1.73 = 03496) CALC BUN/CREAT (test code = 23 RATIO 2235) SODIUM (test code = 2231) 141 MEQ/L POTASSIUM (test code = 2228) 4.0 MEQ/L CHLORIDE (test code = 2215) 102 MEQ/L CARBON DIOXIDE (test code = 25 MEQ/L 2205) CALCIUM (test code = 2209) 11.0 MG/DL PROTEIN, TOTAL (test code = 7.5 G/DL 2228) ALBUMIN (test code = 2201) 4.7 G/DL CALC GLOBULIN (test code = 2.8 G/DL 2240) CALC A/G RATIO (test code = 1.7 RATIO 2234) BILIRUBIN, TOTAL (test code = 0.4 MG/DL 2206) ALKALINE PHOSPHATASE (test 66 U/L code = 2204) AST (test code = 2218) 11 U/L ALT (test code = 2219) 16 U/L LIPID [id number] 00:00:00 Test Item Value Reference Range Interpretation Comments CHOLESTEROL (test code = 2210) 280 MG/DL TRIGLYCERIDES (test code = 2232) 352 MG/DL HDL CHOLESTEROL (test code = 2220) 46 MG/DL CALC LDL CHOL (test code = 2237) 174 MG/DL RISK RATIO LDL/HDL (test code = 3.78 RATIO 2238) LIPID [id number] 00:00:00 Test Item Value Reference Range Interpretation Comments CHOLESTEROL (test code = 2210) 280 MG/DL TRIGLYCERIDES (test code = 2232) 352 MG/DL HDL CHOLESTEROL (test code = 2220) 46 MG/DL CALC LDL CHOL (test code = 2237) 174 MG/DL RISK RATIO LDL/HDL (test code = 3.78 RATIO 2238) HEMOGLOBIN [id number] 00:00:00 Test Item Value Reference Range Interpretation Comments HEMOGLOBIN A1c (test code = 30451) 5.9 % HEMOGLOBIN [id number] 00:00:00 Test Item Value Reference Range Interpretation Comments HEMOGLOBIN A1c (test code = 03732) 5.9 % HEMOGLOBIN [id number] 00:00:00 Test Item Value Reference Range Interpretation Comments HEMOGLOBIN A1c (test code = 72469) 5.9 % CBC W/AUTO [id number] 00:00:00 Test Item Value Reference Range Interpretation Comments WBC (test code = 1001) 8.3 K/UL RBC (test code = 1002) 4.37 M/UL HEMOGLOBIN (test code = 1003) 13.5 G/DL HEMATOCRIT (test code = 1004) 37.8 % MCV (test code = 1005) 86.5 fL MCH (test code = 1006) 30.9 PG MCHC (test code = 1007) 35.7 G/DL RDW (test code = 1038) 12.6 % NEUTROPHILS (test code = 1008) 50.1 % LYMPHOCYTES (test code = 1010) 37.7 % MONOCYTES (test code = 1011) 7.8 % EOSINOPHILS (test code = 1012) 3.8 % BASOPHILS (test code = 1013) 0.4 % IMMATURE GRANULOCYTES (test 0.2 % code = 1036) NUCLEATED RBCS (test code = 0.0 /100WBC'S 1065) PLATELET COUNT (test code = 345 K/UL 1015) ABSOLUTE NEUTROPHILS (test code 4.14 K/UL = 1066) ABSOLUTE LYMPHOCYTES (test code 3.11 K/UL = 1067) ABSOLUTE MONOCYTES (test code = 0.64 K/UL 1068) ABSOLUTE EOSINOPHILS (test code 0.31 K/UL = 1040) ABSOLUTE BASOPHILS (test code = 0.03 K/UL 1069) ABS IMMATURE GRANULOCYTES (test 0.02 K/UL code = 1020) ABS NUCLEATED RBCS (test code = 0.00 K/UL 02224) CBC W/AUTO [id number] 00:00:00 Test Item Value Reference Range Interpretation Comments WBC (test code = 1001) 8.3 K/UL RBC (test code = 1002) 4.37 M/UL HEMOGLOBIN (test code = 1003) 13.5 G/DL HEMATOCRIT (test code = 1004) 37.8 % MCV (test code = 1005) 86.5 fL MCH (test code = 1006) 30.9 PG MCHC (test code = 1007) 35.7 G/DL RDW (test code = 1038) 12.6 % NEUTROPHILS (test code = 1008) 50.1 % LYMPHOCYTES (test code = 1010) 37.7 % MONOCYTES (test code = 1011) 7.8 % EOSINOPHILS (test code = 1012) 3.8 % BASOPHILS (test code = 1013) 0.4 % IMMATURE GRANULOCYTES (test 0.2 % code = 1036) NUCLEATED RBCS (test code = 0.0 /100WBC'S 1065) PLATELET COUNT (test code = 345 K/UL 1015) ABSOLUTE NEUTROPHILS (test code 4.14 K/UL = 1066) ABSOLUTE LYMPHOCYTES (test code 3.11 K/UL = 1067) ABSOLUTE MONOCYTES (test code = 0.64 K/UL 1068) ABSOLUTE EOSINOPHILS (test code 0.31 K/UL = 1040) ABSOLUTE BASOPHILS (test code = 0.03 K/UL 1069) ABS IMMATURE GRANULOCYTES (test 0.02 K/UL code = 1020) ABS NUCLEATED RBCS (test code = 0.00 K/UL 53060) CBC W/AUTO [id number] 00:00:00 Test Item Value Reference Range Interpretation Comments WBC (test code = 1001) 8.3 K/UL RBC (test code = 1002) 4.37 M/UL HEMOGLOBIN (test code = 1003) 13.5 G/DL HEMATOCRIT (test code = 1004) 37.8 % MCV (test code = 1005) 86.5 fL MCH (test code = 1006) 30.9 PG MCHC (test code = 1007) 35.7 G/DL RDW (test code = 1038) 12.6 % NEUTROPHILS (test code = 1008) 50.1 % LYMPHOCYTES (test code = 1010) 37.7 % MONOCYTES (test code = 1011) 7.8 % EOSINOPHILS (test code = 1012) 3.8 % BASOPHILS (test code = 1013) 0.4 % IMMATURE GRANULOCYTES (test 0.2 % code = 1036) NUCLEATED RBCS (test code = 0.0 /100WBC'S 1065) PLATELET COUNT (test code = 345 K/UL 1015) ABSOLUTE NEUTROPHILS (test code 4.14 K/UL = 1066) ABSOLUTE LYMPHOCYTES (test code 3.11 K/UL = 1067) ABSOLUTE MONOCYTES (test code = 0.64 K/UL 1068) ABSOLUTE EOSINOPHILS (test code 0.31 K/UL = 1040) ABSOLUTE BASOPHILS (test code = 0.03 K/UL 1069) ABS IMMATURE GRANULOCYTES (test 0.02 K/UL code = 1020) ABS NUCLEATED RBCS (test code = 0.00 K/UL 15995) MICROALBUMIN/CREATININE, RANDOM AND [id number] 00:00:00 Test Item Value Reference Range Interpretation Comments CREATININE, URINE, RANDOM (test 82.6 MG/DL code = 2072) ALBUMIN, URINE, RANDOM (test code 1.8 MG/DL = 71545) CALC ALBUMIN/CREAT, RND (test code 22 MG/G = 65718) MICROALBUMIN/CREATININE, RANDOM AND [id number] 00:00:00 Test Item Value Reference Range Interpretation Comments CREATININE, URINE, RANDOM (test 82.6 MG/DL code = 2072) ALBUMIN, URINE, RANDOM (test code 1.8 MG/DL = 37950) CALC ALBUMIN/CREAT, RND (test code 22 MG/G = 84795) PTH, INTACT, WITH CALCIUM, PHOSPHORUS, [id number] 00:00:00 Test Item Value Reference Range Interpretation Comments INTACT PTH (test code = 5005) 31 PG/ML CALCIUM (test code = 2209) 11.0 MG/DL PHOSPHORUS (test code = 2227) 3.9 MG/DL CREATININE (test code = 2214) 1.20 MG/DL eGFR (2020 CKD-EPI) (test code 51 ML/MIN/1.73 = 14438) VAGINAL PATHOGENS DNA [id number] 15:36:22 Test Item Value Reference Range Interpretation Comments EDMAR SPECIES (test NEGATIVE NEGATIVE code = 59913) G. VAGINALIS (test NEGATIVE NEGATIVE code = 48385) T. VAGINALIS (test NEGATIVE NEGATIVE UNLESS O THERWISE code = 95560) INDICATED, ALL TESTING PERFORMED [facility], [facility]. [address] [place] [address] 4 LABORATORY DIRE CTOR: RENATA ARAGON M.D. CLIA NUMBER [id number] [place] [id number] VAGINAL PATHOGENS DNA [id number] 00:00:00 Test Item Value Reference Range Interpretation Comments EDMAR SPECIES (test code = 31611) NEGATIVE G. VAGINALIS (test code = 50831) NEGATIVE T. VAGINALIS (test code = 66565) NEGATIVE VAGINAL PATHOGENS DNA [id number] 00:00:00 Test Item Value Reference Range Interpretation Comments EDMAR SPECIES (test code = 70896) NEGATIVE G. VAGINALIS (test code = 91431) NEGATIVE T. VAGINALIS (test code = 03810) NEGATIVE BI SCREENING TOMOSYNTHESIS [id number] 20:20:37Examination:BI SCREENING TOMOSYNTHESIS BILATERAL History:Patient is 64 year old and is seen for: ?Scr eegabriel. Computer-aided detection (CAD) utilized. Comparisons: 05/24/2019 BI SCREENING TOMOSYNTHESIS BILATERAL and 12/14/2017 SCREENING DIGITAL BREAST SHILA Findings:The breasts have scattered areas of fibroglandular density. RightThere is a 5 mm intramammary lymph node seen in the upper outer quadrant of the right breast in the posterior depth, 10.4 cm from the nipple. Compared to the previous study, there are no significant changes. There is no evidence of suspicious masses, calcifications, or otherabnormal findings in the right breast. LeftThere is no evidence of suspicious masses, calcifications, or other abnormal findings in the left breast. Impression:No signs of malignancy. Recommendation:Annual mammographic follow-up - Right BI-RADS Category: [facility] SPECIFIC [id number] 21:24:00 Test Item Value Reference Range Interpretation Comments POCT PH U (test code = 3254) 5 mg/dl 5-8 POCT U LEUK EST (test code = neg Negative - Negative 3263) POCT U NIT (test code = 3262) neg Negative - Negative POCT U PROT (test code = 3259) neg Negative - Negative POCT U GLU (test code = 3256) neg Negative - Negative POCT U KETONE (test code = 3258) neg Negative - Negative POCT U BLD (test code = 3257) trace Negative - Negative Lab Interpretation (test code = Abnormal 27110-4) [facility]/O SPECIFIC [id number] 21:24:00 Test Item Value Reference Range Interpretation Comments POCT PH U (test code = 3254) 5 mg/dl 5-8 POCT U LEUK EST (test code = neg Negative - Negative 3263) POCT U NIT (test code = 3262) neg Negative - Negative POCT U PROT (test code = 3259) neg Negative - Negative POCT U GLU (test code = 3256) neg Negative - Negative POCT U KETONE (test code = 3258) neg Negative - Negative POCT U BLD (test code = 3257) trace Negative - Negative Lab Interpretation (test code = Abnormal 72276-9) [facility], THINPREP, [id number] 00:00:00 Test Item Value Reference Range Interpretation Comments SOURCE: (test code = A) Cervical/Endocervical 8001) SLIDES: (test code = 8011) LMP: (test code = 2009 8020) SPECIMEN ADEQUACY: (NOTE) (test code = 00584) INTERPRETATION: (test NO EPITHELIAL code = 32820) ABNORMALITY SEE BELOW OIL SCOUT: Sterling (test code = 8101) IRENE Linton(ASCP) LOCATION: (test code (NOTE) = 48506) CPT: (test code = (NOTE) 8140) HPV HIGH RISK WITH GENOTYPE, [id number] 00:00:00 Test Item Value Reference Range Interpretation Comments HPV HIGH RISK INTERP (test code = NEGATIVE 95564) HPV 16 (test code = 15699) NEGATIVE HPV 18 (test code = 07701) NEGATIVE HPV, HR, OTHER GENOTYPES (test code NEGATIVE = 00676) HPV HIGH RISK WITH GENOTYPE, [id number] 00:00:00 Test Item Value Reference Range Interpretation Comments HPV HIGH RISK INTERP (test code = NEGATIVE 70601) HPV 16 (test code = 40866) NEGATIVE HPV 18 (test code = 44273) NEGATIVE HPV, HR, OTHER GENOTYPES (test code NEGATIVE = 11829) PAP TEST, THINPREP, [id number] 00:00:00 Test Item Value Reference Range Interpretation Comments SOURCE: (test code = A) Cervical/Endocervical 8001) SLIDES: (test code = 8011) LMP: (test code = 2009 8021) SPECIMEN ADEQUACY: (NOTE) (test code = 57346) INTERPRETATION: (test NO EPITHELIAL code = 37527) ABNORMALITY SEE BELOW OIL SCOUT: Sterling (test code = 8101) IRENE iLnton(ASCP) LOCATION: (test code (NOTE) = 22003) CPT: (test code = (NOTE) 8140) COMPREHENSIVE METABOLIC [id number] 00:00:00 Test Item Value Reference Range Interpretation Comments GLUCOSE (test code = 2217) 115 MG/DL BUN (test code = 8) 60 MG/DL CREATININE (test code = 2214) 1.87 MG/DL eGFR AMER. (test code 34 ML/MIN/1.73 = 20819) eGFR NON- AMER. (test 29 ML/MIN/1.73 code = 80596) CALCULATED BUN/CREAT (test 32.1 RATIO code = 2235) SODIUM (test code = 2231) 131 MEQ/L POTASSIUM (test code = 2228) 2.5 MEQ/L CHLORIDE (test code = 2215) 84 MEQ/L CARBON DIOXIDE (test code = 29 MEQ/L 2205) CALCIUM (test code = 2209) 8.7 MG/DL PROTEIN, TOTAL (test code = 6.5 G/DL 2228) ALBUMIN (test code = 2201) 3.3 G/DL CALCULATED GLOBULIN (test code 3.2 G/DL = 2240) CALCULATED A/G RATIO (test 1.0 RATIO code = 2234) BILIRUBIN, TOTAL (test code = 0.7 MG/DL 2206) ALKALINE PHOSPHATASE (test 161 U/L code = 2204) SGOT (AST) (test code = 2218) 87 U/L SGPT (ALT) (test code = 2219) 171 U/L CULTURE, [id number] 00:00:00 Test Item Value Reference Range Interpretation Comments CULTURE, URINE (test SPECIMEN NUMBER: code = 09150) [id number] CULTURE, [id number] 00:00:00 Test Item Value Reference Range Interpretation Comments CULTURE, URINE (test SPECIMEN NUMBER: code = 39631) [id number] COMPREHENSIVE METABOLIC [id number] 00:00:00 Test Item Value Reference Range Interpretation Comments GLUCOSE (test code = 2217) 115 MG/DL BUN (test code = 2208) 60 MG/DL CREATININE (test code = 2214) 1.87 MG/DL eGFR AMER. (test code 34 ML/MIN/1.73 = 91079) eGFR NON- AMER. (test 29 ML/MIN/1.73 code = 72588) CALCULATED BUN/CREAT (test 32.1 RATIO code = 2235) SODIUM (test code = 2231) 131 MEQ/L POTASSIUM (test code = 2228) 2.5 MEQ/L CHLORIDE (test code = 2215) 84 MEQ/L CARBON DIOXIDE (test code = 29 MEQ/L 2205) CALCIUM (test code = 2209) 8.7 MG/DL PROTEIN, TOTAL (test code = 6.5 G/DL 2228) ALBUMIN (test code = 2201) 3.3 G/DL CALCULATED GLOBULIN (test code 3.2 G/DL = 2240) CALCULATED A/G RATIO (test 1.0 RATIO code = 2234) BILIRUBIN, TOTAL (test code = 0.7 MG/DL 2206) ALKALINE PHOSPHATASE (test 161 U/L code = 2204) SGOT (AST) (test code = 2218) 87 U/L SGPT (ALT) (test code = 2219) 171 U/L COMPREHENSIVE METABOLIC [id number] 00:00:00 Test Item Value Reference Range Interpretation Comments GLUCOSE (test code = 2217) 110 MG/DL BUN (test code = 2208) 49 MG/DL CREATININE (test code = 2214) 1.64 MG/DL eGFR AMER. (test code 40 ML/MIN/1.73 = 84778) eGFR NON- AMER. (test 34 ML/MIN/1.73 code = 13910) CALCULATED BUN/CREAT (test 30 RATIO code = 2235) SODIUM (test code = 2231) 129 MEQ/L POTASSIUM (test code = 2228) 2.5 MEQ/L CHLORIDE (test code = 2215) 84 MEQ/L CARBON DIOXIDE (test code = 28 MEQ/L 2205) CALCIUM (test code = 2209) 9.7 MG/DL PROTEIN, TOTAL (test code = 6.8 G/DL 2228) ALBUMIN (test code = 2201) 3.6 G/DL CALCULATED GLOBULIN (test code 3.2 G/DL = 2240) CALCULATED A/G RATIO (test 1.1 RATIO code = 2234) BILIRUBIN, TOTAL (test code = 0.8 MG/DL 2206) ALKALINE PHOSPHATASE (test 98 U/L code = 220) SGOT (AST) (test code = 2218) 73 U/L SGPT (ALT) (test code = 2219) 115 U/L LIPID [id number] 00:00:00 Test Item Value Reference Range Interpretation Comments CHOLESTEROL (test code = 2210) 180 MG/DL TRIGLYCERIDES (test code = 2232) 332 MG/DL HDL CHOLESTEROL (test code = 2220) 18 MG/DL CALCULATED LDL CHOL (test code = 96 MG/DL 2236) RISK RATIO LDL/HDL (test code = 5.31 RATIO 2238) LIPID [id number] 00:00:00 Test Item Value Reference Range Interpretation Comments CHOLESTEROL (test code = 2210) 180 MG/DL TRIGLYCERIDES (test code = 2232) 332 MG/DL HDL CHOLESTEROL (test code = 2220) 18 MG/DL CALCULATED LDL CHOL (test code = 96 MG/DL 7) RISK RATIO LDL/HDL (test code = 5.31 RATIO 2238) CBC W/AUTO [id number] 00:00:00 Test Item Value Reference Range Interpretation Comments WBC (test code = 1001) 17.5 K/UL RBC (test code = 1002) 4.59 M/UL HEMOGLOBIN (test code = 1003) 14.1 G/DL HEMATOCRIT (test code = 1004) 40.1 % MCV (test code = 1005) 87.4 fL MCH (test code = 1006) 30.7 PG MCHC (test code = 1007) 35.2 G/DL RDW (test code = 1038) 13.7 % NEUTROPHILS (test code = 1008) 78 % LYMPHOCYTES (test code = 1010) 10 % MONOCYTES (test code = 1011) 12 % EOSINOPHILS (test code = 1012) % BASOPHILS (test code = 1013) % PLATELET COUNT (test code = 1015) 361 K/UL COMMENTS (test code = 1016) (NOTE) CBC W/AUTO [id number] 00:00:00 Test Item Value Reference Range Interpretation Comments WBC (test code = 1001) 17.5 K/UL RBC (test code = 1002) 4.59 M/UL HEMOGLOBIN (test code = 1003) 14.1 G/DL HEMATOCRIT (test code = 1004) 40.1 % MCV (test code = 1005) 87.4 fL MCH (test code = 1006) 30.7 PG MCHC (test code = 1007) 35.2 G/DL RDW (test code = 1038) 13.7 % NEUTROPHILS (test code = 1008) 78 % LYMPHOCYTES (test code = 1010) 10 % MONOCYTES (test code = 1011) 12 % EOSINOPHILS (test code = 1012) % BASOPHILS (test code = 1013) % PLATELET COUNT (test code = 1015) 361 K/UL COMMENTS (test code = 1016) (NOTE) CBC W/AUTO [id number] 00:00:00 Test Item Value Reference Range Interpretation Comments WBC (test code = 1001) 17.5 K/UL RBC (test code = 1002) 4.59 M/UL HEMOGLOBIN (test code = 1003) 14.1 G/DL HEMATOCRIT (test code = 1004) 40.1 % MCV (test code = 1005) 87.4 fL MCH (test code = 1006) 30.7 PG MCHC (test code = 1007) 35.2 G/DL RDW (test code = 1038) 13.7 % NEUTROPHILS (test code = 1008) 78 % LYMPHOCYTES (test code = 1010) 10 % MONOCYTES (test code = 1011) 12 % EOSINOPHILS (test code = 1012) % BASOPHILS (test code = 1013) % PLATELET COUNT (test code = 1015) 361 K/UL COMMENTS (test code = 1016) (NOTE) HEMOGLOBIN [id number] 00:00:00 Test Item Value Reference Range Interpretation Comments HEMOGLOBIN A1c (test code = 09606) 5.6 % HEMOGLOBIN [id number] 00:00:00 Test Item Value Reference Range Interpretation Comments HEMOGLOBIN A1c (test code = 85958) 5.6 % HEMOGLOBIN [id number] 00:00:00 Test Item Value Reference Range Interpretation Comments HEMOGLOBIN A1c (test code = 83795) 5.6 % [id number] 00:00:00 Test Item Value Reference Range Interpretation Comments TSH (test code = 2821) 1.2 UIU/ML [id number] 00:00:00 Test Item Value Reference Range Interpretation Comments TSH (test code = 2821) 1.2 UIU/ML [id number] 00:00:00 Test Item Value Reference Range Interpretation Comments TSH (test code = 2821) 1.2 UIU/ML COMPREHENSIVE METABOLIC [id number] 00:00:00 Test Item Value Reference Range Interpretation Comments GLUCOSE (test code = 2217) 110 MG/DL BUN (test code = 2208) 49 MG/DL CREATININE (test code = 2214) 1.64 MG/DL eGFR AMER. (test code 40 ML/MIN/1.73 = 35057) eGFR NON- AMER. (test 34 ML/MIN/1.73 code = 72441) CALCULATED BUN/CREAT (test 30 RATIO code = 2235) SODIUM (test code = 2231) 129 MEQ/L POTASSIUM (test code = 2228) 2.5 MEQ/L CHLORIDE (test code = 2215) 84 MEQ/L CARBON DIOXIDE (test code = 28 MEQ/L 2205) CALCIUM (test code = 2209) 9.7 MG/DL PROTEIN, TOTAL (test code = 6.8 G/DL 2228) ALBUMIN (test code = 2201) 3.6 G/DL CALCULATED GLOBULIN (test code 3.2 G/DL = 2240) CALCULATED A/G RATIO (test 1.1 RATIO code = 2234) BILIRUBIN, TOTAL (test code = 0.8 MG/DL 2206) ALKALINE PHOSPHATASE (test 98 U/L code = 2204) SGOT (AST) (test code = 2218) 73 U/L SGPT (ALT) (test code = 2219) 115 U/L
[2023-01-25 12:16] VITALS: BMI 28.8
[2023-01-25] MEDS: CEFAZOLIN 1 GM in NA CHLORIDE 0.9% 50 ML IVPB SCH ×3 (12:31→23:28)
[2023-01-25] MEDS ORDERED: PROMETHAZINE INJ 25 MG/ML AMP IV PRN (12:40)
[2023-01-25] MEDS ORDERED: DIPHENHYDRAMINE 50 MG/ML VIAL IV PRN (12:40)
[2023-01-25] MEDS ORDERED: INFLUENZA VACCINE (for 6+ mo) 0.5 ML DOSE IMVAC ONE (13:00)
[2023-01-25 13:20] LABS: Hematocrit 27.4 % (36.0-45.0)
[2023-01-25] MEDS ORDERED: ONDANSETRON 4 MG/2 ML VIAL IV PRN (15:23)
[2023-01-25] MEDS ORDERED: HOME MED 1 EA UNK (Estradiol [Estrace] 42.5 GM Cream.Appl) VAG SCH (15:30)
--- NOTE | 2023-01-25 15:32 | P.CNS ---
Date of Consult: 01/25/23 Reason for Consult: Medical management. Requesting Physician: Dany Adhikari Chief Complaint: Right hip osteoarthritis History of Present Illness: Patient is a 67-year-old female with a past medical history significant for hypertension, osteoarthritis, hyperlipidemia, glaucoma who presents for planned procedure--right hip replacement. Patient reported that she has been having pain for quite some time now in her right hip and has attempted conservative management. Patient reported that she has been using occasional ibuprofen for pain management. Patient rated pain before the procedure as 10/10 in severity and described pain as aching in quality. Patient reported worsening pain in the right hip over time. Patient denies any other signs and symptoms. Pain is aggravated with weight bearing and relieved by nothing. Patient presented for implant procedure. Patient tolerated procedure. Patient currently resting in bed. Patient denies any pain in the right hip at time of assessment. Allergies banana Allergy (Verified 01/25/23 08:03) throat itching levofloxacin [From Levaquin] Allergy (Verified 01/25/23 08:03) Itching Sulfa (Sulfonamide Antibiotics) Allergy (Verified 01/25/23 08:03) Itching Home Medications: Atorvastatin Calcium [Lipitor] 10 mg PO BEDTIME 01/20/23 Estradiol [Estrace] 42.5 gm VG SEECOM 01/20/23 Latanoprost/Pf [Latanoprost 0.005% Eye Drop] 1 gtt OP BEDTIME 01/20/23 Lisinopril/Hydrochlorothiazide [Lisinopril-Hctz 20-25 mg Tab] 1 each PO DAILY 01/20/23 Nitrofuran Macro [Macrobid] 100 mg PO BID 01/20/23 Timolol Maleate [Istalol] 1 gtt OP BID 01/20/23 - Past Medical/Surgical History Diabetic: No -: prediabetic -: glaucoma -: hypertension -: keratitis -: cataract surgery -: retinal reattachment both eyes - Family History Father Medical History: Stroke Mother Medical History: Stroke Notes: hemorrhagic stroke - Social History Smoking Status: Former smoker Alcohol use: Yes CD- Drugs: No Caffeine use: Yes Place of Residence: Home Review of Systems General: Unremarkable Eyes: Unremarkable ENT: Unremarkable Respiratory: Unremarkable Cardiovascular: Unremarkable Gastrointestinal: Unremarkable Genitourinary: Unremarkable Musculoskeletal: Other (Right hip pain) Integumentary: Unremarkable Neurological: Unremarkable Lymphatics: Unremarkable Physical Examination Temp Pulse Resp BP Pulse Ox 97.1 F 71 16 115/59 L 95 01/25/23 12:12 01/25/23 12:12 01/25/23 12:12 01/25/23 12:12 01/25/23 12:12 General: Alert, In no apparent distress, Oriented x3, Cooperative HEENT: Atraumatic, PERRLA, Mucous membr. moist/pink, EOMI, Sclerae nonicteric Neck: Supple, 2+ carotid pulse no bruit, No LAD, Without JVD or thyroid abnormality Respiratory: Clear to auscultation bilaterally, Normal air movement Cardiovascular: No edema, Regular rate/rhythm, Normal S1 S2 Capillary refill: <2 Seconds Gastrointestinal: Normal bowel sounds, Soft and benign, No tenderness Musculoskeletal: No clubbing, No contractures, No tenderness Integumentary: No rashes, No breakdown Neurological: Normal speech, Normal tone, Normal affect Lymphatics: No axilla or inguinal lymphadenopathy Laboratory Data (last 24 hrs) 01/25/23 12:50: Hgb 9.1 L, Hct 27.4 L Conclusions/Impression: --Right hip osteoarthritis. Status post right hip arthroplasty. Physical therapy consult initiated. Orthopedic surgeon on board. Further management per orthopedic surgeon. --Acute pain\osteoarthritis. We will manage pain with current pain medication regimen. --Hypertension. Stable. We will manage BP with hydralazine as needed. --Hyperlipidemia. Continue statin. --Glaucoma. Continue home medications. -- Hypokalemia. Replete as needed. --CKD 3B. Slight depreciation in renal functions compared to last recorded renal functions 6 years ago. We will hold off on SHANNON inhibitors. Avoid nephrotoxins. Continue p.o. hydration. We will continue to monitor renal functions. --UTI POA. Continue antibiotics. Urine cultures pending. -- DVT prophylaxis with SCDs. Continue chemical prophylaxis in the a.m. Physician Review: Patient Assessed, Agree with Above Assessment and Plan Critical Care: No
[2023-01-25] MEDS ORDERED: POTASSIUM CL SA 10 MEQ TAB PO ONE (15:36)
[2023-01-25] MEDS ORDERED: HYDRALAZINE HCL 20 MG/ML VIAL IV PRN (15:36)
[2023-01-25 16:18] LABS: Magnesium 1.6 mg/dL (1.6-2.4)
[2023-01-25 17:06] LABS: Hematocrit 28.6 % (36.0-45.0)
[2023-01-25] MEDS: TIMOLOL MALEATE OPTH SCH (20:00)
[2023-01-25] MEDS: HOME MED 1 EA UNK (Latanoprost/Pf [Latanoprost 0.005% Eye Drop] 7.5 ML Drops) OPTH SCH (20:00)
[2023-01-25] MEDS: ATORVASTATIN 10 MG TAB PO SCH (20:00)
--- NOTE | 2023-01-25 21:04 | OP ---
Date of Procedure: 01/25/2023 Surgeon: Dany Adhikari MD Preoperative Diagnosis: Severe right hip arthritis. Postoperative Diagnosis: Severe right hip arthritis. Procedure: Right total hip arthroplasty. Estimated Blood Loss: 200 cc. Complications: There were no complications. Indications For Operation: Ms. Thompson is a 66-year-old female who was essentially immobile because of severe arthritis of both hips. She came to see me for both hips and decision was made to proceed with the right hip first as it has severe arthritis, very limited motion and severely restricts her mobility as well as being extremely painful. Risks, benefits, and alternatives of procedure had been discussed with her. She states she understands things presented and wished to proceed. Description Of Procedure: Patient was taken to the operating room. A spinal anesthesia was obtained by the Anesthesia staff. Following this, she was then rolled to the left side down position with an axillary roll and intubated. The right lower extremity was then prepped and draped in usual sterile fashion for the procedure. Following this, a standard posterolateral incision was taken down carefu lly through skin and soft tissues. Meticulous hemostasis being maintained using Bovie electrocautery . This leads down to the fascia. A small stab wound was made in the fascia. Gluteal tendon was pal pated to ensure we are in correct position. The fascial incision was taken up until near the tip of the greater trochanter where the gluteus deb muscles were encountered. They were then spread usi ng finger pressure. Following this, the sciatic nerve was palpated and the Charnley was then placed. The hip was extremely immobile; however, further dissection was done with the knee bent with as muc h internal rotation as possible which relieved the external rotators and capsule, taken down carefull y and tagged for later repair. The hip was then dislocated. It was severely malformed with a large inferior as well as surrounding osteophytes. A standard neck cut was then performed. The head was t hen delivered. It was nearly impossible to size the head using ring gauges because of what shape it is. However, after the osteophytes were removed, we did get a rough feel. After this, some of the r im osteophytes were removed as well as the labrum and soft tissues from the acetabulum. First initia l reamings are medial with a smaller than expected reamer. Care being taken to not ring too medially and it was felt we may have to upsize this fairly significantly, although much rather have a deeper than larger. After this, sequential reaming was then done to a size 51. The posterior wall appeared to be kept becoming very thin and decision was made that we must stop at this point, even though we do not have complete coverage anteriorly and a slight amount of coverage superiorly, and decision was made to place a standard holed cup. This was placed without difficulty and felt to be fairly stable . Because of the slight degree of being uncovered, decision was made to place a screw. Very careful judgment was used and an x-ray was taken which demonstrates the screw does not appear to have a good bite and appears to be in the soft tissues. Therefore, this screw was then removed. The decision w as made whether or not to place another screw. The cup appeared to be quite stable. However, there were some concerns. We decided to continue the case with a liner as well as typical preparation of t he stem with a hand box coverer, canal-finding reamer and broaching. When it was broached up, it was then x-rayed and there was still overwidening concerns regarding the placement of the screw. Decision was made to remove the screw and the cup did appear to be stable to finger pressure. There did not appe ar to be any further accessible screw holes with the cup. We did then trial with a +8 and as it was being dislocated, the cup itself was seen to shift, felt that this was not adequate fixation of the c up and the cup was then removed and replaced with a multi hole cup, which was then placed and 1 screw was placed in good bone with an excellent bite. After this, another screw was then placed, which wa s quite a bit shorter as we are treating a little bit anteriorly and care was taken not to progress p ast of both cortices with a size 15. These appear to hold the cup very well and appears well positio eduardo on the x-ray. The liner was then placed. The final stem was replaced. It was then trialed with a +12. +12 appeared to be not too tight and gave good stability. After this, anterior osteophytes and superior osteophytes were removed and the final +12 was then placed. It was then checked. It co mes to full flexion, full adduction and internal rotation to at least 40 degrees with the Biomet dual mobility bearing. After this, it was then copiously irrigated and the external rotators and capsule were then repaired back. It was again irrigated and the fascia was closed using Vicryl sutures, fol lowed by closure of the skin with Vicryl and azucena, placed in Aquacel dressing. The patient was th en awakened and taken to recovery room. /ALONZO Voice ID: [id number] Report ID: [id number]
[2023-01-25] MEDS ORDERED: ENOXAPARIN 40 MG/0.4 ML SQ ONE (23:30)
[2023-01-26 04:19] LABS: Absolute Lymphocytes (CBC) 1.2 K/uL (0.7-4.9); Hematocrit 23.6 % (36.0-45.0); Lymphocytes % 11.8 % (15.3-44.8); MCV 90.4 fL (80-100); MPV 6.5 fL (7.6-11.3); RBC Red Blood Cell Count 2.61 M/uL (3.86-4.86)
[2023-01-26 04:20] LABS: Protime INR 1.12
[2023-01-26 04:30] LABS: Magnesium 1.6 mg/dL (1.6-2.4); Potassium 3.6 mmol/L (3.5-5.1)
[2023-01-26] MEDS ORDERED: MAGNESIUM SULFATE 1 gm IVPB 1 GM/100 ML BAG IV ONE (07:00)
[2023-01-26] MEDS ORDERED: PNEUMOCOCCAL VACCINE 0.5 ML IMVAC ONE (08:00)
[2023-01-26] MEDS: TIMOLOL MALEATE OPTH SCH ×2 (09:00→19:36)
[2023-01-26] MEDS ORDERED: POTASSIUM CL SA 10 MEQ TAB PO ONE (09:00)
--- NOTE | 2023-01-26 09:41 | P.CNS ---
Date of Consult: 01/26/23 Reason for Consult: PAUL Requesting Physician: Len Ricketts Chief Complaint: Right hip osteoarthritis History of Present Illness: Patient is a 67-year-old female with a past medical history significant for hypertension, osteoarthritis, hyperlipidemia, glaucoma who presents for planned procedure--right hip replacement. Patient reported that she has been having pain for quite some time now in her right hip and has attempted conservative management. Patient reported that she has been using occasional ibuprofen for pain management. Patient rated pain before the procedure as 10/10 in severity and described pain as aching in quality. Patient reported worsening pain in the right hip over time. Patient denies any other signs and symptoms. Pain is aggravated with weight bearing and relieved by nothing. Patient presented for implant procedure. Patient tolerated procedure. Patient currently resting in bed. Patient denies any pain in the right hip at time of assessment. She reports seeing a [place] claim attorney in the past. No current NSAIDs. She reports urine incontinence. Allergies banana Allergy (Verified 01/25/23 08:03) throat itching levofloxacin [From Levaquin] Allergy (Verified 01/25/23 08:03) Itching Sulfa (Sulfonamide Antibiotics) Allergy (Verified 01/25/23 08:03) Itching Home medications list reviewed: Yes Home Medications: Atorvastatin Calcium [Lipitor] 10 mg PO BEDTIME 01/20/23 Estradiol [Estrace] 42.5 gm VG SEECOM 01/20/23 Latanoprost/Pf [Latanoprost 0.005% Eye Drop] 1 gtt OP BEDTIME 01/20/23 Lisinopril/Hydrochlorothiazide [Lisinopril-Hctz 20-25 mg Tab] 1 each PO DAILY 01/20/23 Nitrofuran Macro [Macrobid] 100 mg PO BID 01/20/23 Timolol Maleate [Istalol] 1 gtt OP BID 01/20/23 - Past Medical/Surgical History Diabetic: No -: PreDM -: Glaucoma -: HTN -: keratitis -: Hx PAUL (Dr. Chiu) -: cataract surgery -: retinal reattachment both eyes - Family History Father Medical History: Stroke Mother Medical History: Stroke Notes: hemorrhagic stroke - Social History Smoking Status: Former smoker Alcohol use: Yes CD- Drugs: No Caffeine use: Yes Place of Residence: Home Review of Systems 10-point ROS is otherwise unremarkable Physical Examination Temp Pulse Resp BP Pulse Ox 97.8 F 70 16 97/51 L 96 01/26/23 08:00 01/26/23 08:00 01/26/23 08:00 01/26/23 08:00 01/26/23 08:00 General: In no apparent distress, Oriented x3, Cooperative HEENT: Atraumatic Neck: Supple Respiratory: Clear to auscultation bilaterally Cardiovascular: No edema, Regular rate/rhythm Gastrointestinal: Soft and benign, Non-distended Musculoskeletal: No clubbing, No contractures Integumentary: No rashes, No cyanosis Neurological: Normal speech Laboratory Data (last 24 hrs) 01/26/23 03:55: PT 12.3, INR 1.12 01/26/23 03:55: Sodium 140, Potassium 3.6, BUN 33 H, Creatinine 1.48 H, Glucose 138 H, Magnesium 1.6 01/26/23 03:55: WBC 10.10, Hgb 8.2 L D, Hct 23.6 L, Plt Count 285 01/25/23 16:56: Hgb 9.8 L, Hct 28.6 L 01/25/23 15:50: Phosphorus 4.0, Magnesium 1.6 01/25/23 12:50: Hgb 9.1 L, Hct 27.4 L Imagings Data: EXAM DESCRIPTION: Tiny Pa And Lat (2 Views)01/20/2023 10:46 am CLINICAL HISTORY: pre op right total hip COMPARISON: Chest Pa And Lat (2 Views) dated 12/18/2017; Chest Single View dated 03/03/2016; CHEST SINGLE VIEW dated 10/10/2012; CHEST PA AND LAT 2 VIEW dated 12/20/2008 TECHNIQUE: PA and lateral views of the chest. FINDINGS: The lungs are clear. No pneumothorax or effusion. The cardiomediastinal contours are unremarkable. IMPRESSION: No acute cardiopulmonary process. EXAM DESCRIPTION: CT - Abdomen Pelvis W Contrast - 08/17/2016 6:18 am CLINICAL HISTORY: Abdominal pain, nausea, vomiting and diarrhea, history of uterine prolapse, history of kidney stones A preliminary written report was provided at the time of the study. COMPARISON: CT study February 2016 TECHNIQUE: Biphasic, helical CT imaging of the abdomen and pelvis was performed following 100 ml non-ionic IV contrast. Oral contrast was given. FINDINGS: No suspicious findings in the lung bases. The liver, spleen, and pancreas show no suspicious findings. A small liver cyst is present. No gallbladder abnormality seen. Gallstones can be occult. Biliary tree is mildly prominent. Duct stones can be occult. No pancreatic or duodenal abnormality. Correlation is needed with any mild or early biliary obstructive findings. Right renal function is normal. No hydronephrosis, mass or other significant finding of the right kidney and right collecting system. Urinary bladder is mostly contracted accentuating wall thickness. This limits assessment of any edema or inflammatory changes of the wall. No bladder calculi. Left kidney is grossly abnormal. There is diffusely heterogeneous enhancement and a slight delay in function. Perinephric stranding is minimal but not present on the right. There is slight enhancement of the pelvis and caliceal garnica. No hydronephrosis. No dilated bowel loops or bowel wall thickening. No free air, free fluid or inflammatory stranding. No hernia, mass or bulky lymphadenopathy. No adrenal abnormality. No suspicious bony findings. IMPRESSION: Prominent heterogeneous enhancement of the left renal parenchyma with a slight delay in function. There is enhancement along the garnica of the left collecting system without obstruction and without obstructing or nonobstructing calculi. Pyelonephritis is most likely. R renal mass lesion is not suspected. No abscess seen. Urinary bladder garnica are mildly prominent but cannot be accurately assessed in the contracted state. Mild prominence of the biliary tree. No gallbladder, duodenal or pancreatic abnormality. This may be baseline for the patient but can be correlated with any biliary obstructive clinical or laboratory findings. Conclusions/Impression: Stage I PAUL in the setting of hypotension CKD IIIa -No NSAIDs -Renal US ordered -IVF bolus X1 Hypokalemia -Replete as ordered HTN with CKD complicated by hypotension -Hold antihypertensives at this time -Check cortisol level PreDM -No sugar diet Anemia in chronic illness -Monitor H&H -Transfuse PRBC prn -Check anemia labs Case reviewed with Dr. Ricketts Thank you kindly for the consultation
[2023-01-26] MEDS: ENOXAPARIN 40 MG/0.4 ML SQ SCH (10:09)
[2023-01-26] MEDS: HYDROCODONE/APAP 7.5/325 MG TAB PO PRN ×2 (13:36→19:31)
--- NOTE | 2023-01-26 15:37 | P.PN ---
Subjective Date of Service: 01/26/23 Chief Complaint: Right hip osteoarthritis POD #1 right total hip arthroplasty. She tolerated the procedure well. She reports some mild hip pain. She has been working well with Physical Therapy. She denies any chest pain, palpitations, or shortness of breath. Review of Systems 10-point ROS is otherwise unremarkable Musculoskeletal: Leg Pain (right hip) Physical Examination - Vital Signs Temperature: 98.1 F Blood Pressure: 96/51 Pulse: 75 Respirations: 16 Pulse Ox (%): 96 - Physical Exam General: Alert, In no apparent distress, Oriented x3 HEENT: Atraumatic, EOMI, Sclerae nonicteric Neck: JVD not distended Respiratory: Clear to auscultation bilaterally, Normal air movement Cardiovascular: No edema, Regular rate/rhythm, Normal S1 S2, No gallops, No rubs, No murmurs Gastrointestinal: Normal bowel sounds, Soft and benign, Non-distended, No tenderness, No rebound, No guarding Musculoskeletal: No clubbing Integumentary: No rashes Neurological: Normal speech, Normal affect - Studies Laboratory Data (last 24 hrs) 01/26/23 03:55: PT 12.3, INR 1.12 01/26/23 03:55: Sodium 140, Potassium 3.6, BUN 33 H, Creatinine 1.48 H, Glucose 138 H, Magnesium 1.6 01/26/23 03:55: WBC 10.10, Hgb 8.2 L D, Hct 23.6 L, Plt Count 285 01/25/23 16:56: Hgb 9.8 L, Hct 28.6 L 01/25/23 15:50: Phosphorus 4.0, Magnesium 1.6 Assessment And Plan - Plan DIAGNOSES: # Right Hip Osteoarthritis s/p Right Total Hip Arthroplasty (01/25/2023) # Acute Blood Loss Anemia likely secondary to Recent Surgery # Elevated Creatinine - Acute Kidney Injury vs Chronic Kidney Disease Stage III # Dyslipidemia # Glaucoma RECOMMENDATIONS: 1. Continue Physical Therapy - may benefit from SNF placement. She is interested in [facility]. 2. Serial H&H - transfuse for Hgb < 7.0 3. Nephrology consultation - I have spoken to Dr. Chiu, recommendations appreciated 4. Continue VTE prophylaxis per Orthopedic recommendations 5. Continue home atorvastatin 6. Continue home ophthalmic timolol + latanoprost for glaucoma 7. PRN pain control with hydrocodone-acetaminophen Recommendations have been reviewed with Dr. Adhikari. Internal Medicine will continue to follow along while hospitalized. Len Ricketts M.D.
[2023-01-26] MEDS ORDERED: NACHLORIDE 0.45% 500 ML IV SCH (16:20)
[2023-01-26] MEDS: NACHLORIDE 0.45% 1,000 ML IV SCH ×2 (16:43→23:40)
[2023-01-26 17:00] LABS: Hematocrit 25.3 % (36.0-45.0)
[2023-01-26 18:25] LABS: Ferritin 144.9 ng/mL (8-388)
[2023-01-26] MEDS: DOCUSATE NA 100 MG CAP PO SCH (19:31)
[2023-01-26] MEDS: ATORVASTATIN 10 MG TAB PO SCH (19:31)
[2023-01-26] MEDS: HOME MED 1 EA UNK (Latanoprost/Pf [Latanoprost 0.005% Eye Drop] 7.5 ML Drops) OPTH SCH (19:35)
[2023-01-27] MEDS: HYDROCODONE/APAP 7.5/325 MG TAB PO PRN ×3 (01:52→22:34)
[2023-01-27 03:33] LABS: Absolute Lymphocytes (CBC) 2.1 K/uL (0.7-4.9); Hematocrit 21.8 % (36.0-45.0); Lymphocytes % 30.3 % (15.3-44.8); MCV 91.4 fL (80-100); MPV 6.8 fL (7.6-11.3); RBC Red Blood Cell Count 2.39 M/uL (3.86-4.86)
[2023-01-27 04:30] LABS: Potassium 3.4 mmol/L (3.5-5.1); Uric Acid 9.1 mg/dL (2.6-6.0)
[2023-01-27 04:59] LABS: Magnesium 1.7 mg/dL (1.6-2.4)
[2023-01-27] MEDS ORDERED: MAGNESIUM SULFATE 1 gm IVPB 1 GM/100 ML BAG IV ONE (05:39)
[2023-01-27] MEDS ORDERED: POTASSIUM CL SA 10 MEQ TAB PO ONE ×2 (05:40→15:00)
[2023-01-27] MEDS: NACHLORIDE 0.45% 1,000 ML IV SCH ×3 (06:18→19:31)
--- NOTE | 2023-01-27 07:10 | P.PN ---
Subjective Date of Service: 01/27/23 Chief Complaint: Right hip osteoarthritis POD #2 right total hip arthroplasty. She reports that her pain is well controlled. She has been working well with Physical Therapy. It was recommended that she go to SNF for continued therapy services. Appreciate CM assistance. She denies any chest pain, palpitations, or shortness of breath. Review of Systems 10-point ROS is otherwise unremarkable Musculoskeletal: Leg Pain (mild right hip) Physical Examination - Vital Signs Temperature: 97.9 F Blood Pressure: 93/53 Pulse: 77 Respirations: 18 Pulse Ox (%): 95 - Studies Laboratory Data (last 24 hrs) 01/27/23 02:42: Sodium 138, Potassium 3.4 L, BUN 31 H, Creatinine 1.28 H, Glucose 127 H, Uric Acid 9.1 H, Magnesium 1.7 01/27/23 02:42: WBC 7.10, Hgb 7.5 L D, Hct 21.8 L, Plt Count 227 01/26/23 16:41: Hgb 8.6 L, Hct 25.3 L Assessment And Plan - Plan - Physical Exam General: Alert, In no apparent distress, Oriented x3 HEENT: Atraumatic, Sclerae nonicteric Neck: JVD not distended Respiratory: Clear to auscultation bilaterally, Normal air movement Cardiovascular: No edema, Regular rate/rhythm, No murmurs Gastrointestinal: Normal bowel sounds, Soft, Non-distended, No tenderness Musculoskeletal: No clubbing Integumentary: No rashes Neurological: Normal speech, Normal affect DIAGNOSES: # Right Hip Osteoarthritis s/p Right Total Hip Arthroplasty (01/25/2023) # Acute Blood Loss Anemia likely secondary to Recent Surgery # Elevated Creatinine - Acute Kidney Injury vs Chronic Kidney Disease Stage III # Dyslipidemia # Glaucoma RECOMMENDATIONS: 1. Continue Physical Therapy - may benefit from SNF placement. She is interested in [facility]. - Case management consult placed 2. Serial H&H - transfuse for Hgb < 7.0 3. Nephrology consultation - I have spoken to Dr. Chiu, recommendations appreciated - Creatinine trend improving 4. Continue VTE prophylaxis per Orthopedic recommendations - Consider holding SQ enoxaparin given down-trending hemoglobin 5. Continue home atorvastatin 6. Continue home ophthalmic timolol + latanoprost for glaucoma 7. PRN pain control with hydrocodone-acetaminophen Recommendations have been reviewed with Dr. Adhikari. Internal Medicine will continue to follow along while hospitalized. Len Ricketts M.D.
--- NOTE | 2023-01-27 07:49 | RAD REPORT ---
EXAM DESCRIPTION: US - Renal Ultrasound-Complete - 01/26/2023 11:52 pm CLINICAL HISTORY: Acute renal insufficiency COMPARISON: None FINDINGS: The right kidney measures 10 cm with a normal echotexture. Small nonobstructing renal calc ulus The left kidney measures 11 cm with a normal echotexture. Small nonobstructing left renal calculus Small renal cysts. Extrarenal pelves versus mild hydronephrosis bilaterally No gross abnormality of bladder IMPRESSION: Extrarenal pelves versus mild hydronephrosis bilaterally Small nonobstructing left renal calculi
[2023-01-27] MEDS ORDERED: SOD FERRIC GLUC COMPLX/SUCROSE 250 MG in NA CHLORIDE 0.9% 100 ML IV SCH (08:00)
[2023-01-27] MEDS: SOD FERRIC GLUC COMPLX/SUCROSE 250 MG in NA CHLORIDE 0.9% 250 ML IV SCH (09:00)
[2023-01-27] MEDS: ENOXAPARIN 40 MG/0.4 ML SQ SCH (09:00)
[2023-01-27] MEDS: TIMOLOL MALEATE OPTH SCH ×2 (09:00→21:00)
[2023-01-27] MEDS: DOCUSATE NA 100 MG CAP PO SCH ×2 (09:00→22:34)
[2023-01-27] MEDS: CYANOCOBALAMIN 1000MCG/ML INJ SQ SCH (11:02)
[2023-01-27 12:52] LABS: Hematocrit 22.2 % (36.0-45.0)
--- NOTE | 2023-01-27 20:19 | P.PN ---
Date of Service: 01/27/23 Vital Signs Temp Pulse Resp BP Pulse Ox 99.6 F 81 16 128/69 97 01/27/23 16:00 01/27/23 16:00 01/27/23 16:00 01/27/23 16:00 01/27/23 16:00 Medications Hydrocodone Bitart/Acetaminophen (Hydrocodone/Apap 7.5/325 Mg Tab) 1 tab PO Q6H PRN PRN Reason: Pain scale 5-7 (Moderate) Last Admin: 01/27/23 11:02 Dose: 1 tab Atorvastatin Calcium (Atorvastatin 10 Mg Tab) 10 mg PO BEDTIME [facility] Last Admin: 01/26/23 19:31 Dose: 10 mg Cyanocobalamin (Cyanocobalamin 1000mcg/Ml Inj) 1,000 mcg SQ DAILY [facility] Stop: 02/02/23 09:01 Last Admin: 01/27/23 11:02 Dose: 1,000 mcg Diphenhydramine HCl (Diphenhydramine 50 Mg/Ml Vial) 12.5 mg IV Q5H PRN PRN Reason: ITCHING Last Admin: 01/26/23 19:34 Dose: 12.5 mg Docusate Sodium (Docusate Na 100 Mg Cap) 100 mg PO BID [facility] Last Admin: 01/27/23 09:00 Dose: 100 mg Enoxaparin Sodium (Enoxaparin 40 Mg/0.4 Ml) 40 mg SQ DAILY [facility] Last Admin: 01/27/23 09:00 Dose: 40 mg Home Med (Estradiol [Estrace]) 42.5 gm V[facility] Home Med (Latanoprost/Pf [Latanoprost 0.005% Eye Drop]) 1 gtt OPTH BEDTIME [facility] Last Admin: 01/26/23 19:35 Dose: 1 gtt Home Med (Timolol Maleate [Istalol]) 1 gtt OPTH BID [facility] Last Admin: 01/27/23 09:00 Dose: 1 gtt Hydralazine HCl (Hydralazine Hcl 20 Mg/Ml Vial) 10 mg IV Q6HP PRN PRN Reason: FOR SBP>160 OR DBP>100 MMHG Sodium Chloride (Sodium Chloride 0.45%) 1,000 mls @ 150 mls/hr IV .Q6H40M [facility] Last Admin: 01/27/23 19:31 Dose: 1,000 mls Ferric Sodium Gluconate Complex 250 mg/ Sodium Chloride 270 mls @ 135 mls/hr IV Q24H [facility] Stop: 01/30/23 10:59 Last Admin: 01/27/23 09:00 Dose: 270 mls Melatonin (Melatonin 3 Mg Tablet) 3 mg PO BEDTIME PRN PRN PRN Reason: INSOMNIA Ondansetron HCl (Ondansetron 4 Mg/2 Ml Vial) 4 mg IV Q6HP PRN PRN Reason: NAUSEA / VOMITING Last Admin: 01/25/23 19:59 Dose: 4 mg Promethazine HCl (Promethazine Inj 25 Mg/Ml Amp) 12.5 mg IV Q5H PRN PRN Reason: NAUSEA / VOMITING Sodium Chloride (Flush Normal Saline 10 Ml) 10 ml IV BID [facility] Last Admin: 01/27/23 09:00 Dose: 10 ml Lab Results (last 24 hrs) 01/27/23 13:28: Potassium 3.7 01/27/23 12:40: Hgb 7.6 L, Hct 22.2 L 01/27/23 02:42: Sodium 138, Potassium 3.4 L, Chloride 107, Carbon Dioxide 28, Anion Gap 6.4, BUN 31 H, Creatinine 1.28 H, Est GFR (CKD-EPI) 46 L, Glucose 127 H, Uric Acid 9.1 H, Calcium 7.9 L, Magnesium 1.7, Vitamin B12 361 01/27/23 02:42: WBC 7.10, RBC 2.39 L, Hgb 7.5 L D, Hct 21.8 L, MCV 91.4, MCH 31.4, MCHC 34.4, RDW 12.7, Plt Count 227, MPV 6.8 L, Neutrophils % 56.2, Lymphocytes % 30.3, Monocytes % 12.0, Eosinophils % 1.1, Basophils % 0.4, Absolute Neutrophils 4.0, Absolute Lymphocytes 2.1, Absolute Monocytes 0.8, Absolute Eosinophils 0.1, Absolute Basophils 0.0 01/26/23 18:15: Cortisol 1.56 Assessment/ Plan: Nephrology No dyspnea No chest pain Hip pain No acute events overnight Vitals, medications, blood work and imaging reviewed in the chart. General: In no apparent distress, Oriented x3, Cooperative HEENT: Atraumatic Neck: Supple Respiratory: Clear to auscultation bilaterally Cardiovascular: No edema, Regular rate/rhythm Gastrointestinal: Soft and benign, Non-distended Musculoskeletal: No clubbing, No contractures Integumentary: No rashes, No cyanosis Neurological: Normal speech Laboratory Data (last 24 hrs) 01/26/23 03:55: PT 12.3, INR 1.12 01/26/23 03:55: Sodium 140, Potassium 3.6, BUN 33 H, Creatinine 1.48 H, Glucose 138 H, Magnesium 1.6 01/26/23 03:55: WBC 10.10, Hgb 8.2 L D, Hct 23.6 L, Plt Count 285 01/25/23 16:56: Hgb 9.8 L, Hct 28.6 L 01/25/23 15:50: Phosphorus 4.0, Magnesium 1.6 01/25/23 12:50: Hgb 9.1 L, Hct 27.4 L Imagings Data: EXAM DESCRIPTION: [facility] Pa And Lat (2 Views)01/20/2023 10:46 am CLINICAL HISTORY: pre op right total hip COMPARISON: Chest Pa And Lat (2 Views) dated 12/18/2017; Chest Single View dated 03/03/2016; CHEST SINGLE VIEW dated 10/10/2012; CHEST PA AND LAT 2 VIEW dated 12/20/2008 TECHNIQUE: PA and lateral views of the chest. FINDINGS: The lungs are clear. No pneumothorax or effusion. The cardiomediastinal contours are unremarkable. IMPRESSION: No acute cardiopulmonary process. EXAM DESCRIPTION: CT - Abdomen Pelvis W Contrast - 08/17/2016 6:18 am CLINICAL HISTORY: Abdominal pain, nausea, vomiting and diarrhea, history of uterine prolapse, history of kidney stones A preliminary written report was provided at the time of the study. COMPARISON: CT study February 2016 TECHNIQUE: Biphasic, helical CT imaging of the abdomen and pelvis was performed following 100 ml non-ionic IV contrast. Oral contrast was given. FINDINGS: No suspicious findings in the lung bases. The liver, spleen, and pancreas show no suspicious findings. A small liver cyst is present. No gallbladder abnormality seen. Gallstones can be occult. Biliary tree is mildly prominent. Duct stones can be occult. No pancreatic or duodenal abnormality. Correlation is needed with any mild or early biliary obstructive findings. Right renal function is normal. No hydronephrosis, mass or other significant finding of the right kidney and right collecting system. Urinary bladder is mostly contracted accentuating wall thickness. This limits assessment of any edema or inflammatory changes of the wall. No bladder calculi. Left kidney is grossly abnormal. There is diffusely heterogeneous enhancement and a slight delay in function. Perinephric stranding is minimal but not present on the right. There is slight enhancement of the pelvis and caliceal garnica. No hydronephrosis. No dilated bowel loops or bowel wall thickening. No free air, free fluid or inflammatory stranding. No hernia, mass or bulky lymphadenopathy. No adrenal abnormality. No suspicious bony findings. IMPRESSION: Prominent heterogeneous enhancement of the left renal parenchyma with a slight delay in function. There is enhancement along the garnica of the left collecting system without obstruction and without obstructing or nonobstructing calculi. Pyelonephritis is most likely. R renal mass lesion is not suspected. No abscess seen. Urinary bladder garnica are mildly prominent but cannot be accurately assessed in the contracted state. Mild prominence of the biliary tree. No gallbladder, duodenal or pancreatic abnormality. This may be baseline for the patient but can be correlated with any biliary obstructive c linical or laboratory findings. [facility] EXAM DESCRIPTION: US - Renal Ultrasound-Complete - 01/26/2023 11:52 pm CLINICAL HISTORY: Acute renal insufficiency COMPARISON: None FINDINGS: The right kidney measures 10 cm with a normal echotexture. Small nonobstructing renal calculus The left kidney measures 11 cm with a normal echotexture. Small nonobstructing left renal calculus Small renal cysts. Extrarenal pelves versus mild hydronephrosis bilaterally No gross abnormality of bladder IMPRESSION: Extrarenal pelves versus mild hydronephrosis bilaterally Small nonobstructing left renal calculi Conclusions/Impression: Stage I PAUL in the setting of hypotension CKD IIIa -No NSAIDs -Renal US reviewed Hypokalemia -Replete as ordered HTN with CKD complicated by hypotension -Hold antihypertensives at this time -Stim test in the morning PreDM A1C 5.4 -No sugar diet Anemia in chronic illness Iron deficiency 9.6% -Monitor H&H -Transfuse PRBC prn -Start IV iron Daily -B12 SC Daily
[2023-01-27] MEDS: HOME MED 1 EA UNK (Latanoprost/Pf [Latanoprost 0.005% Eye Drop] 7.5 ML Drops) OPTH SCH (21:00)
[2023-01-27] MEDS: MELATONIN 3 MG TABLET PO PRN (22:36)
[2023-01-27] MEDS: ATORVASTATIN 10 MG TAB PO SCH (22:36)
[2023-01-28 07:21] LABS: Urine Bacteria None Seen /HPF (<20); Urine Bilirubin NEGATIVE (Negative); Urine Blood Negative (Negative); Urine Clarity Clear (Clear); Urine Color Colorless (Yellow); Urine Glucose NEGATIVE (Negative); Urine Protein NEGATIVE (Negative); Urine RBC <5 /HPF (None Seen); Urine Urobilinogen Normal (Normal)
[2023-01-28 07:59] LABS: UR MICROALBUMIN < 0.5 mg/dL (< 1.9)
[2023-01-28] MEDS ORDERED: SODIUM CHLORIDE 0.9% 10ML INJ IV ONE (08:00)
[2023-01-28] MEDS ORDERED: COSYNTROPIN 0.25 MG VIAL IV ONE (08:00)
[2023-01-28 08:53] LABS: Hematocrit 23.3 % (36.0-45.0)
[2023-01-28] MEDS: TIMOLOL MALEATE OPTH SCH ×2 (09:00→21:00)
[2023-01-28 09:04] LABS: Magnesium 1.9 mg/dL (1.6-2.4)
[2023-01-28] MEDS: ENOXAPARIN 40 MG/0.4 ML SQ SCH (10:57)
[2023-01-28] MEDS: DOCUSATE NA 100 MG CAP PO SCH ×2 (10:57→21:07)
[2023-01-28] MEDS: CYANOCOBALAMIN 1000MCG/ML INJ SQ SCH (10:57)
[2023-01-28] MEDS: SOD FERRIC GLUC COMPLX/SUCROSE 250 MG in NA CHLORIDE 0.9% 250 ML IV SCH (11:10)
--- NOTE | 2023-01-28 17:33 | P.PN ---
Subjective Date of Service: 01/28/23 Chief Complaint: Right hip osteoarthritis POD #3 right total hip arthroplasty. Appreciate CM assistance with SNF placement. She denies any chest pain, palpitations, or shortness of breath. Review of Systems 10-point ROS is otherwise unremarkable General: Weakness (generalized) Physical Examination - Vital Signs Temperature: 98.7 F Blood Pressure: 114/59 Pulse: 73 Respirations: 16 Pulse Ox (%): 97 - Studies Laboratory Data (last 24 hrs) 01/28/23 08:34: Sodium 139, Potassium 4.0, BUN 16, Creatinine 0.97, Glucose 109 H, Magnesium 1.9 01/28/23 08:34: Hgb 7.8 L, Hct 23.3 L Assessment And Plan - Plan - Physical Exam General: Alert, In no apparent distress, Oriented x3 HEENT: Atraumatic, Sclerae nonicteric Neck: JVD not distended Respiratory: Clear to auscultation bilaterally, Normal air movement Cardiovascular: No edema, Regular rate/rhythm, No murmurs Gastrointestinal: Soft, Non-distended, No tenderness Musculoskeletal: No clubbing Integumentary: No rashes Neurological: Normal speech, Normal affect DIAGNOSES: # Right Hip Osteoarthritis s/p Right Total Hip Arthroplasty (01/25/2023) # Acute Blood Loss Anemia likely secondary to Recent Surgery # KDIGO Stage I Acute Kidney Injury # Dyslipidemia # Glaucoma RECOMMENDATIONS: 1. Continue Physical Therapy - may benefit from SNF placement. She is interested in [employer]. - Case management consult placed 2. Serial H&H - transfuse for Hgb < 7.0 3. Nephrology consultation - I have spoken to Dr. Chiu, recommendations appreciated - Creatinine trend improving 4. Continue VTE prophylaxis per Orthopedic recommendations 5. Continue home atorvastatin 6. Continue home ophthalmic timolol + latanoprost for glaucoma 7. PRN pain control with hydrocodone-acetaminophen Recommendations have been reviewed with Dr. Adhikari. Internal Medicine will continue to follow along while hospitalized. Len Ricketts M.D.
[2023-01-28] MEDS: HOME MED 1 EA UNK (Latanoprost/Pf [Latanoprost 0.005% Eye Drop] 7.5 ML Drops) OPTH SCH (21:00)
[2023-01-28] MEDS: ATORVASTATIN 10 MG TAB PO SCH (21:07)
[2023-01-28] MEDS: HYDROCODONE/APAP 7.5/325 MG TAB PO PRN (21:08)
[2023-01-28] MEDS: MELATONIN 3 MG TABLET PO PRN (21:09)
[2023-01-29 05:42] LABS: Magnesium 1.9 mg/dL (1.6-2.4); Phosphorus 2.4 mg/dL (2.5-4.9); Potassium 3.9 mEq/L (3.5-5.1)
[2023-01-29] MEDS: POTASS/SODIUM PHOSPHATE 1 PKT POWD.PACK PO SCH ×3 (08:00→10:55)
[2023-01-29] MEDS: ENOXAPARIN 40 MG/0.4 ML SQ SCH (08:01)
[2023-01-29] MEDS: TIMOLOL MALEATE OPTH SCH ×2 (08:01→21:00)
[2023-01-29] MEDS: CYANOCOBALAMIN 1000MCG/ML INJ SQ SCH (08:01)
[2023-01-29] MEDS: DOCUSATE NA 100 MG CAP PO SCH ×2 (08:01→21:56)
[2023-01-29] MEDS: SOD FERRIC GLUC COMPLX/SUCROSE 250 MG in NA CHLORIDE 0.9% 250 ML IV SCH (08:47)
[2023-01-29] MEDS ORDERED: POTASSIUM CL SA 10 MEQ TAB PO ONE (09:00)
--- NOTE | 2023-01-29 17:22 | P.PN ---
Subjective Date of Service: 01/29/23 Chief Complaint: Right hip osteoarthritis POD #4 right total hip arthroplasty. She is doing well this morning. Her pain is well-controlled. She denies any chest pain, palpitations, or shortness of breath. Appreciate CM assistance with SNF placement. Review of Systems 10-point ROS is otherwise unremarkable Physical Examination - Vital Signs Temperature: 97.0 F Blood Pressure: 115/65 Pulse: 77 Respirations: 16 Pulse Ox (%): 99 - Studies Laboratory Data (last 24 hrs) 01/29/23 05:16: Sodium 140, Potassium 3.9, BUN 15, Creatinine 0.92, Glucose 108 H, Phosphorus 2.4 L, Magnesium 1.9 01/29/23 05:16: Hgb 7.8 L, Hct 23.0 L Assessment And Plan - Plan - Physical Exam General: Alert, In no apparent distress, Oriented x3 HEENT: Atraumatic, Sclerae nonicteric Neck: JVD not distended Respiratory: Clear to auscultation bilaterally, Normal air movement Cardiovascular: No edema, Regular rate/rhythm, No murmurs Gastrointestinal: Soft, Non-distended, No tenderness Musculoskeletal: No clubbing Integumentary: No rashes Neurological: Normal speech, Normal affect DIAGNOSES: # Right Hip Osteoarthritis s/p Right Total Hip Arthroplasty (01/25/2023) # Acute Blood Loss Anemia likely secondary to Recent Surgery # KDIGO Stage I Acute Kidney Injury # Dyslipidemia # Glaucoma RECOMMENDATIONS: 1. Continue Physical Therapy - may benefit from SNF placement. She is interested in [employer]. - Case management consult placed - unlikely to be placed over the weekend 2. Serial H&H - transfuse for Hgb < 7.0 3. Nephrology consultation - I have spoken to Dr. Gauthier, recommendations appreciated - Creatinine trend improving 4. Continue VTE prophylaxis per Orthopedic recommendations 5. Continue home atorvastatin 6. Continue home ophthalmic timolol + latanoprost for glaucoma 7. PRN pain control with hydrocodone-acetaminophen Recommendations have been reviewed with Dr. Adhikari. Internal Medicine will continue to follow along while hospitalized. Len Ricketts M.D.
[2023-01-29] MEDS: HOME MED 1 EA UNK (Latanoprost/Pf [Latanoprost 0.005% Eye Drop] 7.5 ML Drops) OPTH SCH (21:00)
[2023-01-29] MEDS: HYDROCODONE/APAP 7.5/325 MG TAB PO PRN (21:54)
[2023-01-29] MEDS: MELATONIN 3 MG TABLET PO PRN (21:55)
[2023-01-29] MEDS: ATORVASTATIN 10 MG TAB PO SCH (21:56)
[2023-01-30 07:16] LABS: Hematocrit 23.2 % (36.0-45.0)
[2023-01-30 07:31] LABS: Magnesium 1.8 mg/dL (1.6-2.4); Potassium 3.7 mEq/L (3.5-5.1)
[2023-01-30] MEDS: SOD FERRIC GLUC COMPLX/SUCROSE 250 MG in NA CHLORIDE 0.9% 250 ML IV SCH (07:59)
[2023-01-30] MEDS: DOCUSATE NA 100 MG CAP PO SCH ×2 (08:34→21:17)
[2023-01-30] MEDS: CYANOCOBALAMIN 1000MCG/ML INJ SQ SCH (08:35)
[2023-01-30] MEDS: ENOXAPARIN 40 MG/0.4 ML SQ SCH (08:35)
[2023-01-30] MEDS: TIMOLOL MALEATE OPTH SCH ×2 (08:36→21:00)
[2023-01-30] MEDS ORDERED: POTASSIUM CL SA 10 MEQ TAB PO ONE (09:00)
[2023-01-30] MEDS ORDERED: MAGNESIUM SULFATE 1 gm IVPB 1 GM/100 ML BAG IV ONE (09:00)
--- NOTE | 2023-01-30 12:32 | P.PN ---
Subjective Date of Service: 01/30/23 Chief Complaint: Right hip osteoarthritis POD #5 right total hip arthroplasty. She reports no concerns this morning. She has been ambulating in her room with nursing assistance. Appreciate CM assistance with SNF placement. Review of Systems 10-point ROS is otherwise unremarkable Physical Examination - Vital Signs Temperature: 97.0 F Blood Pressure: 100/59 Pulse: 69 Respirations: 16 Pulse Ox (%): 99 - Studies Laboratory Data (last 24 hrs) 01/30/23 06:39: Phosphorus 3.0 01/30/23 06:39: Sodium 140, Potassium 3.7, BUN 18, Creatinine 0.89, Glucose 100, Magnesium 1.8 01/30/23 06:39: Hgb 8.0 L, Hct 23.2 L Assessment And Plan - Plan - Physical Exam General: Alert, In no apparent distress, Oriented x3 HEENT: Atraumatic, Sclerae nonicteric Neck: JVD not distended Respiratory: Clear to auscultation bilaterally, Normal air movement Cardiovascular: No edema, Regular rate/rhythm, No murmurs Gastrointestinal: Soft, Non-distended, No tenderness Musculoskeletal: No clubbing Integumentary: No rashes Neurological: Normal speech, Normal affect DIAGNOSES: # Right Hip Osteoarthritis s/p Right Total Hip Arthroplasty (01/25/2023) # Acute Blood Loss Anemia likely secondary to Recent Surgery # KDIGO Stage I Acute Kidney Injury # Dyslipidemia # Glaucoma RECOMMENDATIONS: 1. Continue Physical Therapy - may benefit from SNF placement. She is interested in [facility]. - Case management consult placed - unlikely to be placed over the weekend, hopefully discharged tomorrow 2. Continue VTE prophylaxis per Orthopedic recommendations 3. Continue home atorvastatin 4. Continue home ophthalmic timolol + latanoprost for glaucoma 5. PRN pain control with hydrocodone-acetaminophen Recommendations have been reviewed with Dr. Adhikari. Internal Medicine will continue to follow along while hospitalized. Dr. Jacobo to assume care tomorrow. Len Ricketts M.D.
[2023-01-30] MEDS: HOME MED 1 EA UNK (Latanoprost/Pf [Latanoprost 0.005% Eye Drop] 7.5 ML Drops) OPTH SCH (21:00)
[2023-01-30] MEDS: ATORVASTATIN 10 MG TAB PO SCH (21:16)
[2023-01-30] MEDS: MELATONIN 3 MG TABLET PO PRN (21:18)
[2023-01-30] MEDS: HYDROCODONE/APAP 7.5/325 MG TAB PO PRN (22:59)
[2023-01-31 03:39] LABS: Hematocrit 22.8 % (36.0-45.0)
[2023-01-31 03:56] LABS: Phosphorus 3.2 mg/dL (2.5-4.9); Potassium 3.8 mEq/L (3.5-5.1)
[2023-01-31] MEDS: DOCUSATE NA 100 MG CAP PO SCH ×2 (08:29→20:30)
[2023-01-31] MEDS: CYANOCOBALAMIN 1000MCG/ML INJ SQ SCH (08:30)
[2023-01-31] MEDS: TIMOLOL MALEATE OPTH SCH ×2 (08:30→20:32)
[2023-01-31] MEDS: ENOXAPARIN 40 MG/0.4 ML SQ SCH (08:30)
[2023-01-31] MEDS: HYDROCODONE/APAP 7.5/325 MG TAB PO PRN ×2 (08:36→23:17)
[2023-01-31] MEDS: ATORVASTATIN 10 MG TAB PO SCH (20:30)
[2023-01-31] MEDS: HOME MED 1 EA UNK (Latanoprost/Pf [Latanoprost 0.005% Eye Drop] 7.5 ML Drops) OPTH SCH (20:32)
--- NOTE | 2023-01-31 21:38 | P.PN ---
Date of Service: 01/31/23 Vital Signs Temp Pulse Resp BP Pulse Ox 97.5 F 65 14 106/59 L 100 01/31/23 16:00 01/31/23 16:00 01/31/23 16:00 01/31/23 16:00 01/31/23 16:00 Medications Hydrocodone Bitart/Acetaminophen (Hydrocodone/Apap 7.5/325 Mg Tab) 1 tab PO Q6H PRN PRN Reason: Pain scale 5-7 (Moderate) Last Admin: 01/31/23 08:36 Dose: 1 tab Atorvastatin Calcium (Atorvastatin 10 Mg Tab) 10 mg PO BEDTIME [facility] Last Admin: 01/31/23 20:30 Dose: 10 mg Cyanocobalamin (Cyanocobalamin 1000mcg/Ml Inj) 1,000 mcg SQ DAILY [facility] Stop: 02/02/23 09:01 Last Admin: 01/31/23 08:30 Dose: 1,000 mcg Diphenhydramine HCl (Diphenhydramine 50 Mg/Ml Vial) 12.5 mg IV Q5H PRN PRN Reason: ITCHING Last Admin: 01/26/23 19:34 Dose: 12.5 mg Docusate Sodium (Docusate Na 100 Mg Cap) 100 mg PO BID [facility] Last Admin: 01/31/23 20:30 Dose: 100 mg Enoxaparin Sodium (Enoxaparin 40 Mg/0.4 Ml) 40 mg SQ DAILY [facility] Last Admin: 01/31/23 08:30 Dose: 40 mg Home Med (Estradiol [Estrace]) 42.5 gm [facility] Home Med (Latanoprost/Pf [Latanoprost 0.005% Eye Drop]) 1 gtt OPTH BEDTIME [facility] Last Admin: 01/31/23 20:32 Dose: 1 gtt Home Med (Timolol Maleate [Istalol]) 1 gtt OPTH BID [facility] Last Admin: 01/31/23 20:32 Dose: 1 gtt Hydralazine HCl (Hydralazine Hcl 20 Mg/Ml Vial) 10 mg IV Q6HP PRN PRN Reason: FOR SBP>160 OR DBP>100 MMHG Melatonin (Melatonin 3 Mg Tablet) 3 mg PO BEDTIME PRN PRN PRN Reason: INSOMNIA Last Admin: 01/30/23 21:18 Dose: 3 mg Ondansetron HCl (Ondansetron 4 Mg/2 Ml Vial) 4 mg IV Q6HP PRN PRN Reason: NAUSEA / VOMITING Last Admin: 01/25/23 19:59 Dose: 4 mg Promethazine HCl (Promethazine Inj 25 Mg/Ml Amp) 12.5 mg IV Q5H PRN PRN Reason: NAUSEA / VOMITING Sodium Chloride (Flush Normal Saline 10 Ml) 10 ml IV BID [facility] Last Admin: 01/31/23 20:51 Dose: 10 ml Lab Results (last 24 hrs) 01/31/23 02:42: Sodium 138, Potassium 3.8, Chloride 110 H, Carbon Dioxide 25, Anion Gap 6.8, BUN 19 H, Creatinine 0.94, Est GFR (CKD-EPI) 67 L, Glucose 99, Calcium 8.6, Phosphorus 3.2, Magnesium 2.0 01/31/23 02:42: Hgb 7.7 L, Hct 22.8 L Assessment/ Plan: Nephrology No dyspnea No chest pain Persistent hip pain No acute events overnight Vitals, medications, blood work and imaging reviewed in the chart. General: In no apparent distress, Oriented x3, Cooperative HEENT: Atraumatic Neck: Supple Respiratory: Clear to auscultation bilaterally Cardiovascular: No edema, Regular rate/rhythm Gastrointestinal: Soft and benign, Non-distended Musculoskeletal: No clubbing, No contractures Integumentary: No rashes, No cyanosis Neurological: Normal speech Laboratory Data (last 24 hrs) 01/26/23 03:55: PT 12.3, INR 1.12 01/26/23 03:55: Sodium 140, Potassium 3.6, BUN 33 H, Creatinine 1.48 H, Glucose 138 H, Magnesium 1.6 01/26/23 03:55: WBC 10.10, Hgb 8.2 L D, Hct 23.6 L, Plt Count 285 01/25/23 16:56: Hgb 9.8 L, Hct 28.6 L 01/25/23 15:50: Phosphorus 4.0, Magnesium 1.6 01/25/23 12:50: Hgb 9.1 L, Hct 27.4 L Imagings Data: EXAM DESCRIPTION: [facility] Pa And Lat (2 Views)01/20/2023 10:46 am CLINICAL HISTORY: pre op right total hip COMPARISON: Chest Pa And Lat (2 Views) dated 12/18/2017; Chest Single View dated 03/03/2016; CHEST SINGLE VIEW dated 10/10/2012; CHEST PA AND LAT 2 VIEW dated 12/20/2008 TECHNIQUE: PA and lateral views of the chest. FINDINGS: The lungs are clear. No pneumothorax or effusion. The cardiomediastinal contours are unremarkable. IMPRESSION: No acute cardiopulmonary process. EXAM DESCRIPTION: CT - Abdomen Pelvis W Contrast - 08/17/2016 6:18 am CLINICAL HISTORY: Abdominal pain, nausea, vomiting and diarrhea, history of uterine prolapse, history of kidney stones A preliminary written report was provided at the time of the study. COMPARISON: CT study February 2016 TECHNIQUE: Biphasic, helical CT imaging of the abdomen and pelvis was performed following 100 ml non-ionic IV contrast. Oral contrast was given. FINDINGS: No suspicious findings in the lung bases. The liver, spleen, and pancreas show no suspicious findings. A small liver cyst is present. No gallbladder abnormality seen. Gallstones can be occult. Biliary tree is mildly prominent. Duct stones can be occult. No pancreatic or duodenal abnormality. Correlation is needed with any mild or early biliary obstructive findings. Right renal function is normal. No hydronephrosis, mass or other significant finding of the right kidney and right collecting system. Urinary bladder is mostly contracted accentuating wall thickness. This limits assessment of any edema or inflammatory changes of the wall. No bladder calculi. Left kidney is grossly abnormal. There is diffusely heterogeneous enhancement and a slight delay in function. Perinephric stranding is minimal but not present on the right. There is slight enhancement of the pelvis and caliceal garnica. No hydronephrosis. No dilated bowel loops or bowel wall thickening. No free air, free fluid or inflammatory stranding. No hernia, mass or bulky lymphadenopathy. No adrenal abnormality. No suspicious bony findings. IMPRESSION: Prominent heterogeneous enhancement of the left renal parenchyma with a slight delay in function. There is enhancement along the garnica of the left collecting system without obstruction and without obstructing or nonobstructing calculi. Pyelonephritis is most likely. R renal mass lesion is not suspected. No abscess seen. Urinary bladder garnica are mildly prominent but cannot be accurately assessed in the contracted state. Mild prominence of the biliary tree. No gallbladder, duodenal or pancreatic abnormality. This may be baseline for the patient but can be correlated with any biliary obstructive clinical or laboratory findings. EXAM DESCRIPTION: US - Renal Ultrasound-Complete - 01/26/2023 11:52 pm CLINICAL HISTORY: Acute renal insufficiency COMPARISON: None FINDINGS: The right kidney measures 10 cm with a normal echotexture. Small nonobstructing renal calculus The left kidney measures 11 cm with a normal echotexture. Small nonobstructing left renal calculus Small renal cysts. Extrarenal pelves versus mild hydronephrosis bilaterally No gross abnormality of bladder IMPRESSION: Extrarenal pelves versus mild hydronephrosis bilaterally Small nonobstructing left renal calculi Conclusions/Impression: Stage I PAUL in the setting of hypotension CKD II -No NSAIDs -Renal US reviewed Hypokalemia -Replete prn HTN with CKD complicated by hypotension -Hold antihypertensives at this time PreDM A1C 5.4 -No sugar diet Anemia in chronic illness Iron deficiency 9.6% -Monitor H&H -Transfuse PRBC prn -S/P IV iron -B12 SC Daily
[2023-01-31] MEDS: MELATONIN 3 MG TABLET PO PRN (23:20)
[2023-02-01 03:45] LABS: Hematocrit 23.9 % (36.0-45.0)
[2023-02-01 03:55] LABS: Potassium 3.7 mEq/L (3.5-5.1)
[2023-02-01] MEDS: DOCUSATE NA 100 MG CAP PO SCH ×2 (08:11→20:46)
[2023-02-01] MEDS: ENOXAPARIN 40 MG/0.4 ML SQ SCH (08:11)
[2023-02-01] MEDS: TIMOLOL MALEATE OPTH SCH ×2 (08:11→20:52)
[2023-02-01] MEDS: CYANOCOBALAMIN 1000MCG/ML INJ SQ SCH (08:11)
[2023-02-01] MEDS ORDERED: POTASSIUM CL SA 10 MEQ TAB PO ONE (09:00)
--- NOTE | 2023-02-01 19:22 | P.PN ---
Date of Service: 02/01/23 Vital Signs Temp Pulse Resp BP Pulse Ox 98.6 F 73 16 103/61 99 02/01/23 16:00 02/01/23 16:00 02/01/23 16:00 02/01/23 16:00 02/01/23 16:00 Medications Atorvastatin Calcium (Atorvastatin 10 Mg Tab) 10 mg PO BEDTIME [facility] Last Admin: 01/31/23 20:30 Dose: 10 mg Cyanocobalamin (Cyanocobalamin 1000mcg/Ml Inj) 1,000 mcg SQ DAILY [facility] Stop: 02/02/23 09:01 Last Admin: 02/01/23 08:11 Dose: 1,000 mcg Diphenhydramine HCl (Diphenhydramine 50 Mg/Ml Vial) 12.5 mg IV Q5H PRN PRN Reason: ITCHING Last Admin: 01/26/23 19:34 Dose: 12.5 mg Docusate Sodium (Docusate Na 100 Mg Cap) 100 mg PO BID [facility] Last Admin: 02/01/23 08:11 Dose: 100 mg Enoxaparin Sodium (Enoxaparin 40 Mg/0.4 Ml) 40 mg SQ DAILY [facility] Last Admin: 02/01/23 08:11 Dose: 40 mg Home Med (Estradiol [Estrace]) 42.5 gm VAG SEECOM [facility] Home Med (Latanoprost/Pf [Latanoprost 0.005% Eye Drop]) 1 gtt OPTH BEDTIME [facility] Last Admin: 01/31/23 20:32 Dose: 1 gtt Home Med (Timolol Maleate [Istalol]) 1 gtt OPTH BID [facility] Last Admin: 02/01/23 08:11 Dose: 1 gtt Hydralazine HCl (Hydralazine Hcl 20 Mg/Ml Vial) 10 mg IV Q6HP PRN PRN Reason: FOR SBP>160 OR DBP>100 MMHG Melatonin (Melatonin 3 Mg Tablet) 3 mg PO BEDTIME PRN PRN PRN Reason: INSOMNIA Last Admin: 01/31/23 23:20 Dose: 3 mg Ondansetron HCl (Ondansetron 4 Mg/2 Ml Vial) 4 mg IV Q6HP PRN PRN Reason: NAUSEA / VOMITING Last Admin: 01/25/23 19:59 Dose: 4 mg Promethazine HCl (Promethazine Inj 25 Mg/Ml Amp) 12.5 mg IV Q5H PRN PRN Reason: NAUSEA / VOMITING Sodium Chloride (Flush Normal Saline 10 Ml) 10 ml IV BID VON Last Admin: 02/01/23 08:11 Dose: 10 ml Lab Results (last 24 hrs) 02/01/23 02:28: Sodium 139, Potassium 3.7, Chloride 107, Carbon Dioxide 25, Anion Gap 10.7, BUN 20 H, Creatinine 0.93, Est GFR (CKD-EPI) 68 L, Glucose 103, Calcium 8.9 02/01/23 02:28: Phosphorus 3.9 02/01/23 02:28: Hgb 8.2 L, Hct 23.9 L 01/28/23 05:00: Cortisol Response Assessment/ Plan: Nephrology No dyspnea No chest pain Persistent hip pain Ambulating with PT today No acute events overnight Vitals, medications, blood work and imaging reviewed in the chart. General: In no apparent distress, Oriented x3, Cooperative HEENT: Atraumatic Neck: Supple Respiratory: Clear to auscultation bilaterally Cardiovascular: No edema, Regular rate/rhythm Gastrointestinal: Soft and benign, Non-distended Musculoskeletal: No clubbing, No contractures Integumentary: No rashes, No cyanosis Neurological: Normal speech Laboratory Data (last 24 hrs) 01/26/23 03:55: PT 12.3, INR 1.12 01/26/23 03:55: Sodium 140, Potassium 3.6, BUN 33 H, Creatinine 1.48 H, Glucose 138 H, Magnesium 1.6 01/26/23 03:55: WBC 10.10, Hgb 8.2 L D, Hct 23.6 L, Plt Count 285 01/25/23 16:56: Hgb 9.8 L, Hct 28.6 L 01/25/23 15:50: Phosphorus 4.0, Magnesium 1.6 01/25/23 12:50: Hgb 9.1 L, Hct 27.4 L Imagings Data: EXAM DESCRIPTION: [place] Pa And Lat (2 Views)01/20/2023 10:46 am CLINICAL HISTORY: pre op right total hip COMPARISON: Chest Pa And Lat (2 Views) dated 12/18/2017; Chest Single View dated 03/03/2016; CHEST SINGLE VIEW dated 10/10/2012; CHEST PA AND LAT 2 VIEW dated 12/20/2008 TECHNIQUE: PA and lateral views of the chest. FINDINGS: The lungs are clear. No pneumothorax or effusion. The cardiomediastinal contours are unremarkable. IMPRESSION: No acute cardiopulmonary process. EXAM DESCRIPTION: CT - Abdomen Pelvis W Contrast - 08/17/2016 6:18 am CLINICAL HISTORY: Abdominal pain, nausea, vomiting and diarrhea, history of uterine prolapse, history of kidney stones A preliminary written report was provided at the time of the study. COMPARISON: CT study February 2016 TECHNIQUE: Biphasic, helical CT imaging of the abdomen and pelvis was performed following 100 ml non-ionic IV contrast. Oral contrast was given. FINDINGS: No suspicious findings in the lung bases. The liver, spleen, and pancreas show no suspicious findings. A small liver cyst is present. No gallbladder abnormality seen. Gallstones can be occult. Biliary tree is mildly prominent. Duct stones can be occult. No pancreatic or duodenal abnormality. Correlation is needed with any mild or early biliary obstructive findings. Right renal function is normal. No hydronephrosis, mass or other significant finding of the right kidney and right collecting system. Urinary bladder is mostly contracted accentuating wall thickness. This limits assessment of any edema or inflammatory changes of the wall. No bladder calculi. Left kidney is grossly abnormal. There is diffusely heterogeneous enhancement and a slight delay in fu nction. Perinephric stranding is minimal but not present on the right. There is slight enhancement of the pelvis and caliceal garnica. No hydronephrosis. No dilated bowel loops or bowel wall thickening. No free air, free fluid or inflammatory stranding. No hernia, mass or bulky lymphadenopathy. No adrenal abnormality. No suspicious bony findings. IMPRESSION: Prominent heterogeneous enhancement of the left renal parenchyma with a slight delay in function. There is enhancement along the garnica of the left collecting system without obstruction and without obstructing or nonobstructing calculi. Pyelonephritis is most likely. R renal mass lesion is not suspected. No abscess seen. Urinary bladder garnica are mildly prominent but cannot be accurately assessed in the contracted state. Mild prominence of the biliary tree. No gallbladder, duodenal or pancreatic abnormality. This may be baseline for the patient but can be correlated with any biliary obstructive clinical or laboratory findings. EXAM DESCRIPTION: US - Renal Ultrasound-Complete - 01/26/2023 11:52 pm CLINICAL HISTORY: Acute renal insufficiency COMPARISON: None FINDINGS: The right kidney measures 10 cm with a normal echotexture. Small nonobstructing renal calculus The left kidney measures 11 cm with a normal echotexture. Small nonobstructing left renal calculus Small renal cysts. Extrarenal pelves versus mild hydronephrosis bilaterally No gross abnormality of bladder IMPRESSION: Extrarenal pelves versus mild hydronephrosis bilaterally Small nonobstructing left renal calculi Conclusions/Impression: Stage I PAUL in the setting of hypotension CKD II -No NSAIDs -Renal US reviewed Hypokalemia -Replete prn HTN with CKD complicated by hypotension -Hold antihypertensives at this time PreDM A1C 5.4 -No sugar diet Anemia in chronic illness Iron deficiency 9.6% -Monitor H&H -Transfuse PRBC prn -S/P IV iron -B12 SC Daily
[2023-02-01] MEDS: ATORVASTATIN 10 MG TAB PO SCH (20:45)
[2023-02-01] MEDS: MELATONIN 3 MG TABLET PO PRN (20:50)
[2023-02-01] MEDS: HOME MED 1 EA UNK (Latanoprost/Pf [Latanoprost 0.005% Eye Drop] 7.5 ML Drops) OPTH SCH (20:51)
[2023-02-02] MEDS ORDERED: HYDROCODONE/APAP 7.5/325 MG TAB PO PRN (00:28)
[2023-02-02 03:48] LABS: Potassium 3.7 mEq/L (3.5-5.1)
[2023-02-02 04:08] VITALS: O2SAT 95
[2023-02-02 06:34] VITALS: TEMP 97.7
[2023-02-02 06:59] LABS: SARS-COV-2 RT PCR NEGATIVE (NEGATIVE)
[2023-02-02] MEDS: DOCUSATE NA 100 MG CAP PO SCH (08:42)
[2023-02-02] MEDS: CYANOCOBALAMIN 1000MCG/ML INJ SQ SCH (08:43)
[2023-02-02] MEDS: ENOXAPARIN 40 MG/0.4 ML SQ SCH (08:43)
[2023-02-02] MEDS: TIMOLOL MALEATE OPTH SCH (08:44)
[2023-02-02 08:59] VITALS: BP 111/69
[2023-02-02] MEDS ORDERED: POTASSIUM CL SA 10 MEQ TAB PO ONE (09:00)
== END 2023-02-02 13:08 | DRG 470 ==
LOC: OR 06:54 → 4TH 11:53 → INTOOBSV 11:53 → OBSVTOIN 01-27 10:00 → 2ND 01-29 15:41
PROVIDERS: ADMIT Orthopaedic Surgery; ATTEND Orthopaedic Surgery
PROC: 0SR90JZ Replacement of Right Hip Joint with Synthetic Substitute, Open Approach (ICD-10-PCS; principal; 2023-01-25 07:00)
DX: M16.11 Unilateral primary osteoarthritis, right hip (principal); N39.0 Urinary tract infection, site not specified; N17.9 Acute kidney failure, unspecified; D62 Acute posthemorrhagic anemia; E78.5 Hyperlipidemia, unspecified; E87.6 Hypokalemia; H40.9 Unspecified glaucoma; I12.9 Hypertensive chronic kidney disease with stage 1 through stage 4 chronic kidney disease, or unspecified chronic kidney disease; N18.32 Chronic kidney disease, stage 3b; D63.1 Anemia in chronic kidney disease; R73.03 Prediabetes; Z23 Encounter for immunization; Z88.1 Allergy status to other antibiotic agents; Z91.018 Allergy to other foods; Z79.899 Other long term (current) drug therapy; Z87.891 Personal history of nicotine dependence; Z20.822 Contact with and (suspected) exposure to COVID-19
CPT/HCPCS: 0240U; 36415; 71046; 76770; 80048; 80053; 81001; 82024; 82043; 82435; 82533; 82570; 82607; 82728; 83036; 83540; 83735; 84100; 84132; 84300; 84466; 84550; 85014; 85018; 85025; 85610; 85730; 86850; 86900; 86901; 88304; 88311; 90471; 90732; 97110; 97116; 97161; 97530; A4216; G0378; J0171; J0690; J0834; J1100; J1200; J1650; J2001; J2250; J2370; J2405; J2704; J2916; J3010; J3420; J3475; J7050; J7120; P9047; U0003

== ENCOUNTER 2023-05-03 07:33 | Inpatient (IN) | payer MEDICARE ==
[2023-04-28 11:10] LABS: Absolute Lymphocytes (CBC) 2.9 K/uL (0.7-4.9); Hematocrit 40.3 % (36.0-45.0); Lymphocytes % 38.6 % (15.3-44.8); MCV 91.2 fL (80-100); MPV 6.6 fL (7.6-11.3); RBC Red Blood Cell Count 4.42 M/uL (3.86-4.86)
[2023-04-28 11:13] LABS: Specific Gravity 1.017 (1.005-1.030); Urine Bacteria <20 /HPF (<20); Urine Bilirubin NEGATIVE (Negative); Urine Blood Negative (Negative); Urine Clarity Extremely Turbid (Clear); Urine Color Yellow (Yellow); Urine Glucose NEGATIVE (Negative); Urine Mucus Slight /HPF (None Seen); Urine Protein NEGATIVE (Negative); Urine RBC <5 /HPF (None Seen); Urine Urobilinogen Normal (Normal); Urine pH 5.5 (5.0-7.0)
[2023-04-28 11:16] LABS: Protime INR 0.89
[2023-04-28 11:27] LABS: Potassium 3.4 mEq/L (3.5-5.1)
--- NOTE | 2023-04-28 13:56 | EKG ---
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
[2023-05-03] MEDS ORDERED: GABAPENTIN 100 MG CAP ONE (08:16)
[2023-05-03] MEDS ORDERED: CEFAZOLIN SODIUM 2 GM/VIAL ONE (08:16)
[2023-05-03] MEDS ORDERED: ACETAMINOPHEN 500 MG TAB ONE (08:17)
[2023-05-03] MEDS ORDERED: Oxycodone HCl/Acetaminophen 1 TAB TAB ONE (08:17)
[2023-05-03] MEDS ORDERED: Ringers Lactate 1,000 ML IV ONE ×2 (08:17→13:07)
[2023-05-03] MEDS ORDERED: FENTANYL CITR 100 MCG/2 ML ONE ×2 (09:03→10:15)
[2023-05-03] MEDS ORDERED: LIDOCAINE 1% MPF 5 ML VIAL ONE (09:03)
[2023-05-03] MEDS ORDERED: dexAMETHasone 10 MG/ML VIAL ONE (09:03)
[2023-05-03] MEDS ORDERED: MIDAZOLAM HCL 2 MG/2 ML INJ ONE (09:04)
[2023-05-03] MEDS ORDERED: BUPIVACAINE 0.25% PF 30 ML VIAL ONE (09:04)
[2023-05-03] MEDS ORDERED: LIDOCAINE 2% MPF 5 ML VIAL ONE (10:14)
[2023-05-03] MEDS ORDERED: propofoL 200 MG/20 ML VIAL IV ONE (10:14)
[2023-05-03] MEDS: TRANEXAMIC ACID 1,000 MG/10 ML VIAL IV ONE ×2 (11:00→12:30)
[2023-05-03] MEDS ORDERED: EPHEDRINE SULF 50 MG/ML VIAL ONE ×2 (11:09→12:16)
[2023-05-03] MEDS ORDERED: ONDANSETRON 4 MG/2 ML VIAL ONE (11:25)
[2023-05-03] MEDS ORDERED: KETAMINE HCL IN 0.9 % NACL 50 MG/5 ML SYRINGE IV ONE (11:27)
[2023-05-03] MEDS ORDERED: KETOROLAC 30 MG/ML INJ ONE (12:27)
--- NOTE | 2023-05-03 12:29 | RAD REPORT ---
EXAM DESCRIPTION: RAD - Hip Left 1 View - 05/03/2023 12:17 pm CLINICAL HISTORY: LT TOTAL HIP IN OR COMPARISON: Hip Right 1 View dated 01/25/2023 TECHNIQUE: Left hip, AP and frogleg views of the left hip. FINDINGS: There is no fracture or dislocation. Satisfactory alignment of right total hip arthroplast y components on the final image. Overlying metallic instruments limit evaluation. No acute or destruc tive bony process seen. IMPRESSION: Right total hip arthroplasty as above.
--- NOTE | 2023-05-03 12:41 | P.BOP ---
Preoperative diagnosis: left severe hip arthritis Postoperative diagnosis: same Primary procedure: left hip NIRAJ Estimated blood loss: 200 ccs Anesthesia: General Transferred to: Recovery Room Condition: Good
[2023-05-03] MEDS ORDERED: ONDANSETRON 4 MG/2 ML VIAL IV PRN (12:42)
[2023-05-03] MEDS: HYDROMORPHONE HCL 1 MG/ML INJ ONE ×2 (13:21→13:26)
--- OUTSIDE RECORDS SUMMARY | 2023-05-03 13:51 | XMS REPORT | Continuity of Care Document ---
:1955 Author Organization [facility] t Address [address] [facility] [address] [place] [address] Care Team Providers Name Role Phone Heavenly Staley Primary Care Physician [phone] Nerissa Gutiérrez Attending Clinician Unavailable Anjali Gill Attending Clinician JIM_Herve Attending Clinician Unavailable Conner Lincoln Attending Clinician [phone] Hanny Arrington Attending Clinician Unavailable Jim Domínguez Attending Clinician [phone] Anna Cannon Attending Clinician Unavailable Arpita MCGILL, Stefani Russell Attending Clinician Barreto Soraida Attending Clinician [phone] STEFANI PALM Attending Clinician Unavailable Hanny Arrington Attending Clinician Unavailable Neeta Larry Attending Clinician Unavailable Tasha Garza Attending Clinician Unavailable Doctor Unassigned, [place] Attending Clinician Unavailable Suzette Trevino Attending Clinician Unavailable Anna Cannon Attending Clinician Unavailable Rhiannon Hensley Attending Clinician Unavailable Moses, Liz Attending Clinician Unavailable OW_Herve Admitting Clinician Unavailable Conner Lincoln Unavailable [phone] Jim Domínguez Unavailable [phone] Payers Payer Name Policy Type Policy Number Effective Date Expiration Date S ource [employer] [id number] 2022 (MEDICARE 00:00:00 REPLACEMENT HMO) [employer] CI [id number] 2021 2022 [facility] (MEDICARE 00:00:00 00:00:00 Community REPLACEMENT HMO) Health [employer] CI [id number] 2020 2021 [facility] (MEDICARE 00:00:00 00:00:00 Community REPLACEMENT HMO) Health Problems Condition Condition Condition Status Onset Resolution Last Treating Co mments Source Name Details Category Date Date Treatment Clinician Date Keratitis, Condition Active 2019-112020-08-28 Cj Lincoln punctate 0-15 12:20:16 Conner Giron Comm uni 00:00: ty 00 Health Encounter Encounter Disease Active Uni vers for for 8-18 [place] of [place] 00 [facility] patricia for breast for breast Br anch cancer cancer History of History of Disease Active U nivers UTI UTI 8-18 ity of 00:00: [place] 00 Medical Branch Primary Condition Active 2021-04-01 Azar Lincoln egacy open-angle 06-17 20:04:59 Conner Giron Co mmuni glaucoma, 00:00: ty bilateral, 00 Health moderate stage Hx of Condition Active 2020-06-17 Catrachita, both eyes [facility] repair of - 14:52:39 Jim Commu ni tear of 00:00: ty retina by 00 Health laser photocoagu lation Pseudophak Condition Active 2020-06-17 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, 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 [facility] ia - 2- 14:52:39 Jim [...] ally from Medical request Branch for surgery [id number] 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 U nivers [...] ity of bleeding bleeding 00:00: [place] 00 Medical Branch Vaginal Vaginal Disease Active 2016-11 Univers ulcer ulcer 11-20 ity of 00:00: [place] 00 Medical Branch Cervical Cervical Disease Active 2016-11 Unive rs discharge discharge 11-20 ity of 00:00: [place] 00 Medical Branch V76.11 - V76.11 - Diagnosis Active 2013-08-06 Memoria SCREEN SCREEN 08-02 14:22:00 l MAMMOGRA MAMMOGRA 00:01: Elvis n Active 08/02/2013 OPID [place] [id number] History of Problem C ommon 9106 gastroesop Spirit hageal - [facility] reflux [facility] (GERD) [facility] [id number] Primary Problem Commo n osteoarthr Spirit itis of - [facility] both hips [facility] [id number] Vaginal Problem Commo n prolapse Spirit - [facility] [id number] Hypertensi Problem Com mon on, Spirit unspecifie - [facility] d type [facility] [id number] Dyslipidem Problem Co mmon ia Spirit - [facility] [id number] Current Problem Common moderate Spirit episode of - [facility] major [facility] prior episode [id number] Glaucoma Problem Commo n of both Spirit eyes, - CHI unspecifie St d glaucoma [facility] Allergies, Adverse Reactions, Alerts Allergy Allergy Status [...] - Unive rs ty to See comments 2 ity of adverse 00:00: [place] reaction 00 [...] 1-13 adverse 00:00: reaction 00 to drug 68184 Drug Active itching Common allergy Spirit - [facility] banana banana Active rash Common allergen allergen Spirit ic ic - [facility]I extract extract [facility] 0 Drug Active rash Common allergy Spirit - [facility] Social History Social Habit Start Date Stop Date Quantity Comments Source History of Common Spirit - Tobacco Use [facility] Sex Assigned At Common Sp raúl - [facility] History SDOH University o f Alcohol Binge [place] Medic al Branch Exposure to Not sure University of SARS-CoV-2 [place] [facility] (event) Branch History SDOH University o f Alcohol Frequency [place] [facility] edical [facility] History SDOH University o f Alcohol Std [place] [facility] Drinks Branch time of call 2022-03-08 2022-03-08 03/08/2022 2:37 [facility] 14:36:42 14:36:42 PM Health Alcohol intake 2020-07-01 2020-07-01 Current drinker Unive rsity of 00:00:00 00:00:00 of alcohol [place] [facility] (finding) Branch Alcohol Comment 2017-09-20 2017-09-20 Very rare Universit y of 00:00:00 00:00:00 [facility] Tobacco Comment 2017-09-20 2017-09-20 quit 1983 Universit y of 00:00:00 00:00:00 [facility] Tobacco use and 2017-09-20 2017-09-20 Never used Universit y of exposure 00:00:00 00:00:00 [facility] Smoking Status Start Date Stop Date Source Former Smoker 2022-11-22 00:00:00 2022-11-22 00:00:00 Common S pirit - [facility] Medications Ordered Filled Start Stop Current Ordering Indication Dosage Frequency Signature Comments Components Source Medication Medication Date Date Medication? Clinician (SIG) Name Name TAKE No DIRECTED. 9- 00:00: 00 TAKE 1 2021-0 No TABLET BY 9-23 MOUTH ONCE 00:00: DAILY 00 TAKE 1 0 No TABLET BY 8-17 MOUTH ONCE 00:00: DAILY 00 Dose 2021-0 No Unknown 7-24 00:00: 00 lisinopril No 1mg 20 7-14 mg-hydrochl 00:00: orothiazide 00 25 mg tablet Dose No Unknown 7-14 00:00: 00 Dose 2021-0 No Unknown 6-28 00:00: 00 atorvastati 2021-0 No 1mg n 10 mg 6-17 tablet 00:00: 00 lisinopril 2021-0 No 1mg 20 6-10 mg-hydrochl 00:00: orothiazide 00 25 mg tablet (LATANOPROS 0 Yes Conner Giron INSTILL 1 [facility] T) 0.005 % 6-08 [...] 2-0 No Unknown 3-28 00:00: 00 Dose 2021-0 No Unknown 3-28 00:00: 00 Dose 2-0 No Unknown 3-28 00:00: 00 Dose 2-0 No Unknown 3-28 00:00: 00 Dose 2-0 No Unknown 3-28 00:00: 00 Dose 2-0 No Unknown 3-28 00:00: 00 lisinopril 2021-0 No 1mg 20 1-24 mg-hydrochl 00:00: orothiazide 00 25 mg tablet (PREDNISOLO 2020-11 Yes Conner Giron Instill 1 [facility] NE ACETATE) 1-08 [place] [...] times Health a day estradioL 1 Yes [id number] Insert Univers mg tablet 8-18 once ity of 00:00: quarter in [place] 00 the vagina Medical after Branch moistening with water twice weekly (say /Tue) at bedtime. estradioL 1 Yes [id number] Insert Univers mg tablet 8-18 once ity of 00:00: quarter in [place] 00 the vagina Medical after Branch moistening with water twice weekly (say /Tue) at bedtime. estradioL 1 Yes [id number] Insert Univers mg tablet 8-18 once ity of 00:00: quarter in [place] 00 the vagina Medical after Branch moistening with water twice weekly (say /Tue) at bedtime. estradioL 1 Yes [id number] Insert Univers mg tablet 8-18 once ity of 00:00: quarter in [place] 00 the vagina Medical after Branch moistening with water twice weekly (say /Tue) at bedtime. estradioL 1 Yes [id number] Insert Univers mg tablet 8-18 once ity of 00:00: quarter in [place] 00 the vagina Medical after Branch moistening with water twice weekly (say /Tue) at bedtime. TIMOLOL Yes Conner Giron 2{Drop} 2xD 1 drop in [facility] MALEATE 06-17 [place] both eyes Commu ni (ONCE-DAILY 00:00: Twice a ty ) (TIMOLOL Health MALEATE) 0.5 % SOLN (LATANOPROS 2021- No Conner Giron 2{Drop} 1xD 1 drop in [facility] T) 0.005 % 06-17 06-08 [place] both eyes C ommuni SOLN 00:00: 00:00 at night ty 00 :00 Health triamcinolo Yes [id number] Apply to [place] [facility] ne -02 area(s) 3 ity of acetonide 00:00: (three) [place] 0.1 % 00 times Medical ointment daily. Branch triamcinolo Yes [id number] Apply to [facility] ne -02 area(s) 3 ity of acetonide 00:00: (three) [place] 0.1 % 00 times Medical ointment daily. Branch triamcinolo 2020-0 Yes [id number] Apply to [facility] [place] 1-02 area(s) 3 ity of acetonide 00:00: (three) [place] 0.1 % 00 times Medical ointment daily. Branch triamcinolo 2020-0 Yes [id number] Apply to [place] [facility] ne 1-02 area(s) 3 ity of acetonide 00:00: (three) [place] 0.1 % 00 times Medical ointment daily. Branch triamcinolo 2020-0 Yes [id number] Apply to [place] [facility] ne 1-02 area(s) 3 ity of acetonide 00:00: (three) [place] 0.1 % 00 times Medical ointment daily. Branch triamcinolo 2020-0 Yes [id number] Apply to [facility] [place] 1-02 area(s) 3 ity of acetonide 00:00: (three) [place] 0.1 % 00 times Medical ointment daily. Branch estradiol 1 Yes [id number] Insert Univers mg tablet 05-14 once ity of 00:00: quarter in [place] 00 the vagina Medical after Branch moistening with water twice weekly (say Tu/Tue) at bedtime. estradiol 1 2020- No [id number] Insert Univers mg tablet 05-14 once ity of 00:00: 00:00 quarter in [place] 00 :00 the vagina Medical after Branch moistening with water twice weekly (say Tues/Tue) at bedtime. estradiol 1 2020- No [id number] Insert Univers mg tablet 05-14 once ity of 00:00: 00:00 quarter in [place] 00 :00 the vagina Medical after Branch moistening with water twice weekly (say Tues/Tue) at bedtime. ADDERALL 2018- Yes [facility] (AMPHETAMIN 2-25 Communi E-DEXTROAMP 00:00: ty HETAMINE) 00 Health 20 MG TABS (ESTRADIOL) 2019-0 Yes [facility] 0.5 MG TABS 2-25 Communi 00:00: ty 00 Health ZYRTEC 2018-0 Yes [facility] ALLERGY 2-25 Communi (CETIRIZINE 00:00: ty HCL TABS) 00 Health TABS FLONASE 50 2018-0 Yes [facility] MCG/ACT 2-25 Communi NASAL 00:00: ty SUSPENSION 00 Health PRAVASTATIN 2019-0 Yes [facility] SODIUM 2-25 Communi (PRAVASTATI 00:00: ty N SODIUM 00 Health TABS) TABS HYDROCHLORO 2019-0 Yes [facility] THIAZIDE 2-25 Communi (HYDROCHLOR 00:00: ty OTHIAZIDE 00 Health CAPS) CAPS TIMOLOL 2018- Yes [facility] MALEATE 2-25 Communi (TIMOLOL 00:00: ty MALEATE 00 [facility] SOLN) SOLN Oxyquinolin 2018- Yes [id number] .5{appl Insert 0.5 Univers e-Na Lauryl 1-15 04 icator} Applicator ity of Sulfate 00:00: s into [place] ([facility] 00 vagina Medical JELLY) SEE-INSTRU Branch 0.025-0.01 CTIONS. % Gel Apply 1/2 applicator per vagina twice weekly until discontinu e Oxyquinolin 2018- Yes [id number] .5{appl Insert 0.5 Univers e-Na Lauryl 1-15 04 icator} Applicator ity of Sulfate 00:00: s into [place] ([facility] vagina Medical JELLY) SEE-INSTRU Branch 0.025-0.01 CTIONS. % Gel Apply 1/2 applicator per vagina twice weekly until discontinu e Oxyquinolin Yes [id number] .5{appl Insert 0.5 Univers e-Na Lauryl 1-15 04 icator} Applicator ity of Sulfate 00:00: s into [place] ([facility] 00 vagina Medical JELLY) SEE-INSTRU Branch 0.025-0.01 CTIONS. % Gel Apply 1/2 applicator per vagina twice weekly until discontinu e Oxyquinolin 2018- Yes [id number] .5{appl Insert 0.5 Univers e-Na Lauryl 1-15 04 icator} Applicator ity of Sulfate 00:00: s into [place] ([facility] 00 vagina Medical JELLY) SEE-INSTRU Branch 0.025-0.01 CTIONS. % Gel Apply 1/2 applicator per vagina twice weekly until discontinu e Oxyquinolin 2018- Yes [id number] .5{appl Insert 0.5 Univers e-Na Lauryl 1-15 04 icator} Applicator ity of Sulfate 00:00: s into [place] ([facility] 00 vagina Medical JELLY) SEE-INSTRU Branch 0.025-0.01 CTIONS. % Gel Apply 1/2 applicator per vagina twice weekly until discontinu e Oxyquinolin 0 Yes [id number] .5{appl Insert 0.5 Univers e-Na Lauryl 1-15 04 icator} Applicator ity of Sulfate 00:00: s into [place] ([facility] 00 vagina Medical JELLY) SEE-INSTRU Branch 0.025-0.01 [...] hr 00 :00 Medical capsule Branch amphetamine 0 2020- No Unive rs -dextroamph 616 08-18 ity of etamine 30 00:00: 00:00 [place] mg 24 hr 00 :00 Medical capsule Branch esomeprazol 0 Yes Univer s e 20 mg 2-25 ity of capsule 00:00: Medical Branch esomeprazol 20180 Yes Univer s e 20 mg 2-25 ity of capsule 00:00: [place] [facility] esomeprazol 2018-0 Yes Univer s e 20 mg 2-25 ity of capsule 00:00: [place] [facility] esomeprazol 20180 Yes Univer s e 20 mg 2-25 ity of capsule 00:00: [place] [facility] esomeprazol 20180 Yes Univer s e 20 mg 2-25 ity of capsule 00:00: [place] [facility] esomeprazol 20180 Yes Univer s e 20 mg 2-25 ity of capsule 00:00: [place] [facility] NexIUM 20 NexIUM 20 20180 No 1{capsu QD NexIUM 20 MG MG 2-25 le} MG 00:00: 00 NexIUM 20 NexIUM 20 2017-0 No 1{capsu QD NexIUM 20 MG MG 2-25 le} MG 00:00: 00 NexIUM 20 NexIUM 20 No 1{capsu QD NexIUM 20 MG MG 2-25 le} MG 00:00: 00 NexIUM 20 NexIUM 20 0 No 1{capsu QD NexIUM 20 MG MG 2-25 le} MG 00:00: 00 NexIUM 20 NexIUM 20 0 No 1{capsu QD NexIUM 20 MG MG 2-25 le} MG 00:00: 00 estradiol 2016- Yes [id number] 2g Insert 2 g Univers 0.01 % (0.1 1-07 into ity of mg/gram) 00:00: vagina [place] vaginal 00 SEE-INSTRU Medica l cream CTIONS. Branch estradiol 2016-11 2020- No [id number] 2g Insert 2 g Univers 0.01 % (0.1 1-07 08-18 into ity of mg/gram) 00:00: 00:00 vagina [place] vaginal 00 :00 SEE-INSTRU Medica l cream CTIONS. Branch estradiol 2016-11 2020- No [id number] 2g Insert 2 g Univers 0.01 % (0.1 -07 08-18 into ity of mg/gram) 00:00: 00:00 [...] tablet 00:00: [place] 00 Medical Branch lisinopril- 2017- Yes Univer s hydrochloro 0-05 ity of thiazide 00:00: [place] 20-25 mg 00 Medical per tablet Branch pravastatin 2016- Yes Univer s 40 mg 0-05 ity of tablet 00:00: [place] 00 Medical Branch lisinopril- 2016- Yes Univer s hydrochloro 0-05 ity of thiazide 00:00: [place] 20-25 mg 00 Medical per tablet Branch pravastatin 2016-11 Yes Univer s 40 mg 0-05 ity of tablet 00:00: [place] 00 Medical Branch Premarin 2015-0 No 1mg/gra 0.625 8-02 m mg/gram 00:00: vaginal 00 cream nitrofurant 2015-0 No 1mg oin 1-13 macrocrysta 00:00: l 100 mg 00 capsule Cosopt 22.3 2015-0 No 1mg/mL mg-6.8 1-13 mg/mL eye 00:00: drops 00 Cosopt 22.3 2016-0 No 1mg/mL mg-6.8 1-13 mg/mL eye 00:00: drops 00 lisinopril 2015-0 No 1mg 20 1-13 mg-hydrochl 00:00: orothiazide 00 25 mg tablet Pravastatin Pravastatin No 1{table QD Pravastati Sodium [...] in 250 MG Cosopt Cosopt No Cosopt Vital Signs Vital Name Observation Time Observation Value Comments Source height 2022-11-22 10:30:00 65 [in_i] Common [facility] weight 2022-11-22 10:30:00 167 [lb_av] [facility] temperature 2022-11-22 10:30:00 98.3 [degF] Common [facility] bmi 2022-11-22 10:30:00 27.79 kg/m2 [facility] blood pressure 2022-11-22 10:30:00 121 mm[Hg] Common Spirit - systolic [facility] blood pressure 2022-11-22 10:30:00 78 mm[Hg] Common Spirit - diastolic [facility] height 2022-10-25 11:00:00 65 [in_i] Common [facility] weight 2022-10-25 11:00:00 167.6 [lb_av] Common [facility] - [facility] temperature 2022-10-25 11:00:00 97.7 [degF] Common [facility] bmi 2022-10-25 11:00:00 27.89 kg/m2 [facility] oximetry 2022-10-25 11:00:00 98 % Common S pirit - [facility] respiratory rate 2022-10-25 11:00:00 17 /min Comm on Spirit - [facility] blood pressure 2022-10-25 11:00:00 122 mm[Hg] Common Spirit - systolic [facility] blood pressure 2022-10-25 11:00:00 78 mm[Hg] Common Spirit - diastolic [facility] Systolic blood 2020-07-01 20:51:00 118 mm[Hg] Univer sity of [facility] Diastolic blood 2020-07-01 20:51:00 78 mm[Hg] Unive rsity of [facility] Heart rate 2020-07-01 20:51:00 69 /min [facility] Body temperature 2020-07-01 20:51:00 36.94 [facility] rate 2020-07-01 20:51:00 18 /min [facility] Body height 2020-07-01 20:51:00 156.2 cm [facility] Body weight 2020-07-01 20:51:00 66.134 kg [facility] BMI 2020-07-01 20:51:00 27.10 kg/m2 [facility] BP Systolic 2022-08-10 11:07:00 146 mm[Hg] BP [...] /min blood pressure, 2021-11-02 13:01:44 83 mm[facility]Hg] [facility] blood pressure, 2021-11-02 13:01:44 125 mm[Hg] [facility] systolic Health pulse rate 2021-11-02 13:01:44 70 /min [facility] blood pressure, 2021-09-21 11:14:13 75 mm[Hg] [facility] blood pressure, 2021-09-21 11:14:13 116 mm[Hg] [facility] systolic Health pulse rate 2021-09-21 11:14:13 71 /[facility], 2021-08-26 11:56:03 77 mm[Hg] [facility] Health blood pressure, 2021-08-26 11:56:03 114 mm[Hg] [facility] systolic Health pulse rate 2021-08-26 11:56:03 76 /min [facility] blood pressure, 2021-04-01 09:33:21 79 mm[Hg] [facility] diastolic Health blood pressure, 2021-04-01 09:33:21 121 mm[Hg] [facility] systolic Health BP Systolic 2016-06-15 13:00:00 [...] Est Patient Intermediate 2021-11-02 13:20:53 Conner Lincoln [facility] Opt - [id number] Health Est Patient Intermediate 2021-09-21 11:52:23 Conner Lincoln [facility] [id number] Health Est Patient Intermediate 2021-08-26 12:55:50 Conner Lincoln [facility] Opt - 24873 Health Est Patient Intermediate 2021-08-18 15:46:24 Jim Domínguez [facility] [id number] Health Est Patient Intermediate 2021-04-01 10:47:55 Conner Lincoln [facility] 16355 Health VISUAL FIELD XM UNI/BI 2021-04-01 10:46:26 Conner Lincoln [facility] W/INTERP EXTENDED EXAM Health Est Patient 2020-08-28 12:09:40 Conner Lincoln [facility] People to Remember Opt - Health 71900 BI SCREENING 2020-07-15 18:45:31 Stefani Palm [facility] TOMOSYNTHESIS BILATERAL Medical Branch ASSIGNMENT OF BENEFITS 2020-07-01 20:10:10 Doctor Unassigned, No [facility] Name Medical Branch POCT URINALYSIS W/O 2020-07-01 00:00:00 Stefani Palm [facility] SPECIFIC GRAVITY Medical Branch Oph US Dx Crnl 2020-06-17 14:53:32 Conner Lincoln [facility] [employer] Pachymetry UNI/BI Health COMPUTERIZED OPHTHALMIC 2020-06-17 14:53:14 Conner Lincoln [facility] IMAGING OPTIC NERVE Health Est Patient 2020-06-17 14:52:38 Conner Lincoln [facility] People to Remember Opth - Health 41858 Spherocyl, bif, plano to 2019-06-26 12:09:08 Anna Cannon [facility] +/- 4.00d sphere, 0.12 Health to 2.00d cyl, per lens Frames, purchases 2019-06-26 12:08:54 Anna Cannon [facility] [employer] New Patient Intermediate 2019-01-08 14:47:49 Jim Domínguez [facility] - 94905 Health Plan of Care Planned Activity Planned Date Details Comments Source Goal Plan of Care Note [code = 38847-9] Goal Plan of Care Note [code = 60552-3] Goal Plan of Care Note [code = 19791-6] Goal Plan of Care Note [code = 17468-8] Goal Plan of Care Note [code = 50186-9] Goal Plan of Care Note [code = 06693-0] Goal Plan of Care Note [code = 00974-4] Goal Plan of Care Note [code = 13634-1] Goal Plan of Care Note [code = 72834-2] Goal Plan of Care Note [code = 51037-9] Goal Plan of Care Note [code = 15395-4] Goal Plan of Care Note [code = 25903-2] Goal Plan of Care Note [code = 50949-7] Goal Plan of Care Note [code = 97620-7] Goal Plan of Care Note [code = 50654-5] Encounters Start End Encounter Admission Attending Care Care Encounter Source Date/Time Date/Time Type Type Clinicians Facility Department ID 2023-04-12 Outpatient Juliette, STDIANNE STLC [id number] Common 13:36:01 Nerissa [id number] [facility] 2023-03-01 Outpatient Juliette, STTHERONLC STLC [id number] Common 16:46:00 Nerissa 15451 [facility] 2023-02-23 Outpatient Juliette, STTHERONLC STLMLC [id number] Common 13:24:01 Nerissa [id number] [facility] 2023-01-18 Outpatient Juliette, STTHERONLC STLC [id number] Common 10:52:02 Nerissa [id number] [facility] 2023-01-11 Outpatient Juliette, STTHERONLC STLMLC [id number] Common 11:54:01 Nerissa [id number] [facility] 2023-01-10 Outpatient Juliette, STLMLC STLMLC [id number] Common 14:35:01 Nerissa 81833 [facility] 2023-01-03 Outpatient Juliette, STLMLC STLMLC [id number] Common 15:49:01 Nerissa [id number] [facility] 2022-12-30 Outpatient Juliette, STLMLC STLMLC [id number] Common 11:26:02 Nerissa 48022 [facility] 2022-11-22 Outpatient Juliette, STLMLC STLMLC [id number] Common 15:01:03 Nerissa [id number] [facility] 2022-11-19 Outpatient Juliette, STLMLC STLMLC [id number] Common 09:18:03 Nerissa [id number] [facility] 2022-10-25 Outpatient Juliette, STLMLC STLMLC [id number] Common 10:14:04 Nerissa [id number] [facility] 2022-12-21 2022-12-21 CAV Tomora [id number] Devoted 21:00:00 22:00:00 Gill [id number] [facility] [id number] 2022-12-21 2022-12-21 Outpatient OWENS_T DMG G [id number] Devoted 00:00:00 00:00:00 [id number] Medica l Group 2022-12-21 2022-12-21 Outpatient OWENS_T [facility]G [facility] [id number] Devoted 00:00:00 00:00:00 [id number] Medica l Group 2022-11-30 2022-11-30 (TEL) STLMLC STLMLC [id number] Co mmon 00:00:00 00:00:00 [facility] 2022-11-24 2022-11-[address] [facility] [id number] Devoted 00:00:00 00:00:00 [id number] Medica l Group 2022-11-22 2022-11-22 OFFICE STLMLC STLMLC [id number] Co mmon 00:00:00 00:00:00 VISIT NEW Spir it PT LEVEL 3 - [facility] 2022-11-22 2022-11-22 (TEL) STLMLC STLMLC [id number] Co mmon 00:00:00 00:00:[address] [facility] 2022-11-03 2022-11-03 (TEL) STLMLC STLMLC [id number] Co mmon 00:00:00 00:00:00 [facility] 2022-10-25 2022-10-25 OFFICE STLMLC STLMLC [id number] Co mmon 00:00:00 00:00:00 VISIT NEW Spir it PT LEVEL 4 - [facility] 2022-08-11 2022-08-11 Outpatient DMG DM [id number] Devoted 00:00:00 00:00:00 [id number] Medica l Group 2022-08-10 2022-08-10 Outpatient [id number] 00:00:00 00:00:00 Visit [id number] 2021-11-02 2021-11-02 Office Conner Lincoln [facility] E ncounter/ Legacy 00:00:00 00:00:00 Visit Hanny Arrington [id number] Communi [id number] [facility] 2021-09-21 2021-09-21 Office Conner Lincoln [facility] E ncounter/ Legacy 00:00:00 00:00:00 Visit Hanny Arrington [id number] Communi [id number] [facility] 2021-08-26 2021-08-26 Office Conner Lincoln [facility] E ncounter/ Legacy 00:00:00 00:00:00 Visit Hanny Arrington [id number] Communi [id number] Health 2021-08-18 2021-08-18 Office Jim Domínguez [facility] Encoun ter/ Legacy 00:00:00 00:00:00 Visit Anna Cannon [id number] Communi [id number] Health 2021-07-30 2021-07-30 Telephone Arpita [facility] [id number] Univers 00:00:00 00:00:00 Drew Gould [id number] i [facility] [id number] Kathia De Loen [id number] Rodriguez [address] 2021-04-01 2021-04-01 Office Conner Lincoln [facility] E ncounter/ Legacy 00:00:00 00:00:00 Visit Soraida Barreto [id number] Communi [id number] [facility] 2020-11-20 2020-11-20 Outpatient R [facility] [id number] Univers 15:00:00 15:00:00 [facility] 2020-10-30 2020-10-30 Outpatient R [facility] [id number] Univers 15:00:00 15:00:00 [facility] 2020-10-01 2020-10-01 Outpatient R [facility] [id number] Univers 09:30:00 09:30:00 [facility] 2020-08-28 2020-08-28 Office Salazar [facility] Encounter/ Legacy 00:00:00 00:00:00 Visit Conner Giron [id number] Co mmuni [id number] [facility] 2020-08-28 2020-08-28 Office Salazar [facility] Encounter/ Legacy 00:00:00 00:00:00 Visit Conner Giron [id number] Co mmuni [id number] [facility] 2020-08-28 2020-08-28 Office Conner Lincoln [facility] E ncounter/ Legacy 00:00:00 00:00:00 Visit Hanny Arrington [id number] Communi [id number] Health 2020-08-21 2020-08-21 Office Hanny Arrington [facility] En counter/ Legacy 00:00:00 00:00:00 Visit Larry, Neeta [id number] Communi [id number] Health 2020-08-18 2020-08-18 Office Hanny Arrington [facility] En counter/ Legacy 00:00:00 00:00:00 Visit Tasha Garza [id number] Communi [id number] [facility] 2020-07-15 2020-07-15 Hospital Stefani Palm [facility] [id number] Univers 13:00:00 23:59:00 Encounter Drew Gould [id number] ity [facility] [id number] [facility] [phone] [facility] [address] [place] 2020-07-15 2020-07-15 Outpatient R [facility] [id number] 24180 Univers 00:00:00 00:00:00 ity of [facility] 2020-07-01 2020-07-01 Office [facility] [id number] Univers 15:11:48 16:26:16 Visit Drew Gould [id number] i [facility] 4.2.7.2.686 [facility] [id number] Az dical [address] 2020-07-01 2020-07-01 Outpatient R J[facility]AN [facility] [id number] Univers 15:00:00 15:00:00 ity of [facility] 2020-07-01 2020-07-01 Orders Doctor REJI [id number] Univers 00:00:00 00:00:00 Only Unassigned, MORRO [id number] ity of [place] [facility] 4.2.7.2.686 [facility] [phone] [facility] [address] [place] 2020-06-30 2020-06-30 Office MUNA Lincoln [facility] Encounter/ Legacy 00:00:00 00:00:00 Visit Conner Giron [id number] Co mmarnoldi [id number] [facility] 2020-06-17 2020-06-17 Office MUNA Lincoln Encounter/ Legacy 00:00:00 00:00:00 Visit Conner Giron [id number] Co mmuni [id number] [facility] 2020-06-17 2020-06-17 Office MUNA Lincoln Encounter/ Legacy 00:00:00 00:00:00 Visit Conner Giron [id number] Co mmarnoldi [id number] [facility] 2020-06-17 2020-06-17 Office MUNA Lincoln [facility] Encounter/ Legacy 00:00:00 00:00:00 Visit Conner Giron [id number] Co mmuni 586383 [facility] 2020-06-17 2020-06-17 Office Salazar Conner Giron [facility] E ncounter/ Legacy 00:00:00 00:00:00 Visit Hanny Arrington [id number] Communi 728897 ty Health 2020-06-17 2020-06-17 Office Murphy [facility] Encounter / Legacy 00:00:00 00:00:00 Visit Hanny [id number] Com heath 289899 ty Health 2020-06-17 2020-06-17 Office Salazar [facility] Encounter/ Legacy 00:00:00 00:00:00 Visit Conner Giron [id number] Co mmuni 907249 ty Health 2020-06-16 2020-06-16 Office Uriel [facility] Encounter/ Legacy 00:00:00 00:00:00 Visit Suzette [id number] Co mmuni 445358 ty Health 2019-07-13 2019-07-13 Office Davis [facility] Encounter / Legacy 00:00:00 00:00:00 Visit Anna [id number] Com heath 678437 ty Health 2019-07-04 2019-07-04 Office Madan [facility] Encoun ter/ Legacy 00:00:00 00:00:00 Visit adrian Rhiannon [id number] Co mmuni 607464 ty Health 2019-06-27 2019-06-27 Office Jim Domínguez [facility] Encoun ter/ Legacy 00:00:00 00:00:00 Visit [id number] Com heath 658818 ty Health 2019-06-26 2019-06-26 Office Cannon, [facility] Encounter / Legacy 00:00:00 00:00:00 Visit Anna [id number] Com hetah 494501 ty Health 2019-01-08 2019-01-08 Office Jim Domínguez [facility] Encoun ter/ Legacy 00:00:00 00:00:00 Visit [id number] Com heath 104319 ty Health 2019-01-08 2019-01-08 Office Jim Domínguez [facility] Encoun ter/ Legacy 00:00:00 00:00:00 Visit [id number] Com heath [id number] [facility] 2019-01-08 2019-01-08 Office Jim Domínguez [facility] Encoun ter/ Legacy 00:00:00 00:00:00 Visit [id number] Com heath [id number] [facility] 2019-01-08 2019-01-08 Office Jim Domínguez [facility] Encoun ter/ Legacy 00:00:00 00:00:00 Visit Anna Cannon [id number] Communi [id number] [facility] 2019-01-08 2019-01-08 Office Moses [facility] Encounter/ Legacy 00:00:00 00:00:00 Visit Liz [id number] Com heath [id number] [facility] 2013-08-06 2013-08-06 OD CHERI ALONZO [id number] Memoria 14:12:00 14:12:00 00 azar Shaffer 2013-08-06 2013-08-06 OD CHERI ALONZO [id number] Mem[facility] 14:12:00 14:12:00 00 azar Shaffer Results Test Description Test Time Test Comments Results Result Comments Source HEMOGLOBIN A1c 2022-08-12 07:34:43 Test Item Value Reference Range Interpretation Comme nts HEMOGLOBIN A1c (test code = 6.0 % 4.2-5.6 H UNLESS OTHERWISE INDICATED, ALL 86669) TESTING PERFORM ED ATCLINICAL PATHOLOGY [facility] [place], [facility]. [address] [place] [address] PRINTER'S DEVIL: RENATA PENA M.D. CLIA NUMBER [id number] CAP ACCREDITATION N O. [id number] COMPREHENSIVE METABOLIC [id number] 05:33:56 Test Item Value Reference Range Interpretation Comments GLUCOSE (test code = 109 MG/DL 70-99 H 2216) BUN (test code = 20 MG/DL 07-06) CREATININE (test 0.98 MG/DL 0.60-1.30 code = 2214) eGFR (2020 CKD-EPI) 64 ML/MIN/1.73 >60 (test code = 59715) CALC BUN/CREAT (test 20 RATIO 05-11 code = 2235) SODIUM (test code = [...] MG/DL See_Comment [Automated message] (test code = 220) The syste m which generated this result transmit fermin reference range : <=1.2. The refe rence range was not u sed to interpret th is result as normal/abnormal . ALKALINE PHOSPHATASE 67 U/L 40-140 (test code = 2203) AST (test code = 14 U/L 9-40 2217) ALT (test code = 17 U/L 5-40 2218) LIPID [id number] 05:33:56 Test Item Value Reference Range Interpretation [...] MOREINFORMATION , SEE CLIENT ANNOUNCE MENT AT [email or web address] RISK RATIO LDL/HDL 1.96 RATIO <3.22 (test code = 2238) CALCIUM, [id number] 14:24:05 Test Item Value Reference Range Interpretation Comments CALCIUM, IONIZED (test code = 5.12 MG/DL 4.70-5.90 ) VITAMIN D, 25 [id number] 06:48:25 Test Item Value Reference Range Interpretation [...] ATED, ALL TESTING PERFORM ED ATCLINICAL PATH [facility], [facility]. [address] [place] [address] LABORATORY DIRE CTOR: Ziggy CAMPOS. CLIA NUMBER [id number] CAP ACCREDITATION N O. [id number] IONIZED CALCIUM, [id number] 00:00:00 Test Item Value Reference Range Interpretation Comments CALCIUM, IONIZED (test code = 5.12 MG/DL ) VITAMIN D, 25 [id number] 00:00:00 Test Item Value Reference Range Interpretation Comments VITAMIN D, 25 OH (test code = 4958) 39 NG/ML VITAMIN D, 25 [id number] 00:00:00 Test Item Value Reference Range Interpretation Comments VITAMIN D, 25 OH (test code = 4958) 39 NG/ML IONIZED CALCIUM, [id number] 00:00:00 Test Item Value Reference Range Interpretation Comments CALCIUM, IONIZED (test code = 5.12 MG/DL ) ALBUMIN/CREATININE RATIO, URINE, [id number] 06:08:31 Test Item Value Reference Range Interpretation Comments CREATININE, URINE, 82.6 MG/DL NOT ESTAB RANDOM (test code = 2072) ALBUMIN, URINE, 1.8 MG/DL NOT ESTAB RANDOM (test code = 68588) CALC 22 MG/G <30 Note: Albumin/ Creatinine ALBUMIN/CREAT, RND ratio ref erence interval (test code = reflects ADA an d NKF 48935) guidelines. UNL ESS OTHERWISE INDIC ATED, ALL TESTING PERFORM ED ATCLINICAL PATH OLOGY LABORATORIES, [facility]. [address] [place] [address] LABORATORY DIRE CTOR: Ziggy CAMPOSIA NUMBER [id number] CAP ACCREDITATION N O. [id number] PTH, INTACT, WITH CALCIUM, PHOSPHORUS, [id number] 05:24:42 Test Item Value Reference Range Interpretation Comments INTACT PTH (test code = 5005) 31 PG/ML 15-65 CALCIUM (test code = 2209) 11.0 MG/DL 8.5-10.5 H PHOSPHORUS (test code = 2227) 3.9 MG/DL 2.5-4.5 CREATININE (test code = 2214) 1.20 MG/DL 0.60-1.30 eGFR (2020 CKD-EPI) (test code 51 ML/MIN/1.73 >60 L = 84958) COMPREHENSIVE METABOLIC [id number] 05:24:42 Test Item Value Reference Range Interpretation Comments GLUCOSE (test code = 110 MG/DL 70-99 H 2216) BUN (test code = 28 MG/DL 8-23 H 2207) CREATININE (test 1.20 MG/DL 0.60-1.30 code = 2214) eGFR (2020 CKD-EPI) 51 ML/MIN/1.73 >60 L (test code = 51049) CALC BUN/CREAT (test 23 RATIO 6-28 code = 2235) SODIUM (test code = 141 MEQ/L 348-581 3260) POTASSIUM (test code 4.0 MEQ/L 3.5-5.4 = 2227) CHLORIDE (test code 102 MEQ/L 95-107 = 2215) CARBON DIOXIDE (test 25 MEQ/L 19-31 code = 2206) CALCIUM (test code = 11.0 MG/DL 8.5-10.5 H 2208) PROTEIN, TOTAL (test 7.5 G/DL 6.1-8.3 code = 2229) ALBUMIN (test code = 4.7 G/DL 3.5-5.2 [...] PHOSPHATASE 66 U/L 40-140 (test code = 2203) AST (test code = 11 U/L 9-40 2217) ALT (test code = 16 U/L 5-40 2218) LIPID [id number] 05:24:42 Test Item Value Reference Range Interpretation [...] MOREINFORMATION , SEE CLIENT ANNOUNCE MENT AT [email or web address] RISK RATIO LDL/HDL 3.78 RATIO <3.22 H (test code = 223) HEMOGLOBIN [id number] 04:12:46 Test Item Value Reference Range Interpretation Comments HEMOGLOBIN A1c (test code = 22010) 5.9 % 4.2-5.6 H CBC W/AUTO DIFF WITH [id number] 03:31:03 Test Item Value Reference Range Interpretation [...] RBCS 0.00 K/UL 0.00-0.11 (test code = 20483) PTH, INTACT, WITH CALCIUM, PHOSPHORUS, [id number] 00:00:00 Test Item Value Reference Range Interpretation Comments INTACT PTH (test code = 5005) 31 PG/ML CALCIUM (test code = 2209) 11.0 MG/DL PHOSPHORUS (test code = 2227) 3.9 MG/DL CREATININE (test code = 2214) 1.20 MG/DL eGFR (2020 CKD-EPI) (test code 51 ML/MIN/1.73 = 73686) COMPREHENSIVE METABOLIC [id number] 00:00:00 Test Item Value Reference Range Interpretation Comments GLUCOSE (test code = 2217) 110 MG/DL BUN (test code = 2208) 28 MG/DL CREATININE (test code = 2214) 1.20 MG/DL eGFR (2020 CKD-EPI) (test code 51 ML/MIN/1.73 = 00408) CALC BUN/CREAT (test code = 23 RATIO [...] code = 2219) 16 U/L COMPREHENSIVE METABOLIC [id number] 00:00:00 Test Item Value Reference Range Interpretation Comments GLUCOSE (test code = 2217) 110 MG/DL BUN (test code = 2208) 28 MG/DL CREATININE (test code = 2214) 1.20 MG/DL eGFR (2020 CKD-EPI) (test code 51 ML/MIN/1.73 = 38906) CALC BUN/CREAT (test code = 23 RATIO [...] (test code = 2219) 16 U/L LIPID [id number] 00:00:00 Test Item Value Reference Range Interpretation Comments CHOLESTEROL (test code = 2210) 280 MG/DL TRIGLYCERIDES (test code = 2232) 352 MG/DL HDL CHOLESTEROL (test code = 2220) 46 MG/DL CALC LDL CHOL (test code = 2237) 174 MG/DL RISK RATIO LDL/HDL (test code = 3.78 RATIO 2238) LIPID [id number] 00:00:00 Test Item Value Reference Range Interpretation Comments CHOLESTEROL (test code = 2210) 280 MG/DL TRIGLYCERIDES (test code = 2232) 352 MG/DL HDL CHOLESTEROL (test code = 2220) 46 MG/DL CALC LDL CHOL (test code = 2237) 174 MG/DL RISK RATIO LDL/HDL (test code = 3.78 RATIO 2238) HEMOGLOBIN [id number] 00:00:00 Test Item Value Reference Range Interpretation Comments HEMOGLOBIN A1c (test code = 16101) 5.9 % HEMOGLOBIN [id number] 00:00:00 Test Item Value Reference Range Interpretation Comments HEMOGLOBIN A1c (test code = 19938) 5.9 % HEMOGLOBIN [id number] 00:00:00 Test Item Value Reference Range Interpretation Comments HEMOGLOBIN A1c (test code = 02036) 5.9 % CBC W/AUTO [id number] 00:00:00 Test Item Value Reference Range Interpretation [...] NUCLEATED RBCS (test code = 0.00 K/UL 74653) CBC W/AUTO [id number] 00:00:00 Test Item Value Reference Range Interpretation [...] NUCLEATED RBCS (test code = 0.00 K/UL 45614) CBC W/AUTO [id number] 00:00:00 Test Item Value Reference Range Interpretation [...] NUCLEATED RBCS (test code = 0.00 K/UL 67584) MICROALBUMIN/CREATININE, RANDOM AND [id number] 00:00:00 Test Item Value Reference Range Interpretation Comments CREATININE, URINE, RANDOM (test 82.6 MG/DL code = 2072) ALBUMIN, URINE, RANDOM (test code 1.8 MG/DL = 33031) CALC ALBUMIN/CREAT, RND (test code 22 MG/G = 66509) MICROALBUMIN/CREATININE, RANDOM AND [id number] 00:00:00 Test Item Value Reference Range Interpretation Comments CREATININE, URINE, RANDOM (test 82.6 MG/DL code = 2072) ALBUMIN, URINE, RANDOM (test code 1.8 MG/DL = 11067) CALC ALBUMIN/CREAT, RND (test code 22 MG/G = 05736) PTH, INTACT, WITH CALCIUM, PHOSPHORUS, [id number] 00:00:00 Test Item Value Reference Range Interpretation Comments INTACT PTH (test code = 5005) 31 PG/ML CALCIUM (test code = 2209) 11.0 MG/DL PHOSPHORUS (test code = 2227) 3.9 MG/DL CREATININE (test code = 2214) 1.20 MG/DL eGFR (2020 CKD-EPI) (test code 51 ML/MIN/1.73 = 33757) PTH, INTACT, WITH CALCIUM, PHOSPHORUS, [id number] 00:00:00 Test Item Value Reference Range Interpretation Comments INTACT PTH (test code = 5005) 31 PG/ML CALCIUM (test code = 2209) 11.0 MG/DL PHOSPHORUS (test code = 2227) 3.9 MG/DL CREATININE (test code = 2214) 1.20 MG/DL eGFR (2020 CKD-EPI) (test code 51 ML/MIN/1.73 = 15922) VAGINAL PATHOGENS DNA [id number] 15:36:22 Test Item Value Reference Range Interpretation Comments EDMAR SPECIES (test NEGATIVE NEGATIVE code = 69519) G. VAGINALIS (test NEGATIVE NEGATIVE code = 25752) T. VAGINALIS (test NEGATIVE NEGATIVE UNLESS O THERWISE code = 21521) INDICATED, ALL TESTING PERFORMED [facility] [address] [place] [address] 4 LABORATORY DIRE CTOR: RENATA ARAGON M.D. CLIA NUMBER [id number] [facility] [place] [id number] VAGINAL PATHOGENS DNA [id number] 00:00:00 Test Item Value Reference Range Interpretation Comments EDMAR SPECIES (test code = 75954) NEGATIVE G. VAGINALIS (test code = 02831) NEGATIVE T. VAGINALIS (test code = 23159) NEGATIVE VAGINAL PATHOGENS DNA [id number] 00:00:00 Test Item Value Reference Range Interpretation Comments EDMAR SPECIES (test code = 69233) NEGATIVE G. VAGINALIS (test code = 17838) NEGATIVE T. VAGINALIS (test code = 30528) NEGATIVE BI SCREENING TOMOSYNTHESIS [id number] 20:20:37Examination:BI SCREENING TOMOSYNTHESIS BILATERAL History:Patient is 64 year old and is seen for: ?Scr eening. Computer-aided detection (CAD) utilized. Comparisons: 05/24/2019 BI [...] - Right BI-RADS Category: [facility] [id number] 21:24:00 Test Item Value Reference Range Interpretation [...] Negative Lab Interpretation (test code = Abnormal 19715-8) [facility] URINALYSIS W/O SPECIFIC [id number] 21:24:00 Test Item Value Reference Range Interpretation [...] Negative Lab Interpretation (test code = Abnormal 98329-0) [facility] TEST, THINPREP, [id number] 00:00:00 Test Item Value Reference Range Interpretation Comments SOURCE: (test code = A) Cervical/Endocervical 8001) SLIDES: (test code = 8011) LMP: (test code = 2009 8020) SPECIMEN ADEQUACY: (NOTE) (test code = 06427) INTERPRETATION: (test NO EPITHELIAL code = 84444) ABNORMALITY SEE BELOW AGRIBUSINESS PROFESSOR: Sterling (test code = 8101) IRENE Linton(ASCP) LOCATION: (test code (NOTE) = 63787) CPT: (test code = (NOTE) 8140) HPV HIGH RISK WITH GENOTYPE, [id number] 00:00:00 Test Item Value Reference Range Interpretation Comments HPV HIGH RISK INTERP (test code = NEGATIVE 59234) HPV 16 (test code = 18846) NEGATIVE HPV 18 (test code = 26505) NEGATIVE HPV, HR, OTHER GENOTYPES (test code NEGATIVE = 85298) HPV HIGH RISK WITH GENOTYPE, [id number] 00:00:00 Test Item Value Reference Range Interpretation Comments HPV HIGH RISK INTERP (test code = NEGATIVE 11048) HPV 16 (test code = 57076) NEGATIVE HPV 18 (test code = 13220) NEGATIVE HPV, HR, OTHER GENOTYPES (test code NEGATIVE = 19810) PAP TEST, THINPREP, [id number] 00:00:00 Test Item Value Reference Range Interpretation Comments SOURCE: (test code = A) Cervical/Endocervical 8001) SLIDES: (test code = 8011) LMP: (test code = 2009 8020) SPECIMEN ADEQUACY: (NOTE) (test code = 24359) INTERPRETATION: (test NO EPITHELIAL code = 38187) ABNORMALITY SEE BELOW AGRIBUSINESS PROFESSOR: Sterling (test code = 8101) IRENE Linton(ASCP) LOCATION: (test code (NOTE) = 98291) CPT: (test code = (NOTE) 8140) COMPREHENSIVE METABOLIC [id number] 00:00:00 Test Item Value Reference Range Interpretation Comments GLUCOSE (test code = 2217) 115 MG/DL BUN (test code = 2208) 60 MG/DL CREATININE (test code = 2214) 1.87 MG/DL eGFR AMER. (test code 34 ML/MIN/1.73 = 34107) eGFR NON- AMER. (test 29 ML/MIN/1.73 code = 65751) CALCULATED BUN/CREAT (test 32.1 RATIO code = [...] ALKALINE PHOSPHATASE (test 161 U/L code = 220) SGOT (AST) (test code = 2218) 87 U/L SGPT (ALT) (test code = 2219) 171 U/L CULTURE, [id number] 00:00:00 Test Item Value Reference Range Interpretation Comments CULTURE, URINE (test SPECIMEN NUMBER: code = 27061) [id number] CULTURE, [id number] 00:00:00 Test Item Value Reference Range Interpretation Comments CULTURE, URINE (test SPECIMEN NUMBER: code = 73939) [id number] COMPREHENSIVE METABOLIC [id number] 00:00:00 Test Item Value Reference Range Interpretation Comments GLUCOSE (test code = 2217) 115 MG/DL BUN (test code = 2208) 60 MG/DL CREATININE (test code = 2214) 1.87 MG/DL eGFR AMER. (test code 34 ML/MIN/1.73 = 60179) eGFR NON- AMER. (test 29 ML/MIN/1.73 code = 11127) CALCULATED BUN/CREAT (test 32.1 RATIO code = [...] BILIRUBIN, TOTAL (test code = 0.7 MG/DL 2207) ALKALINE PHOSPHATASE (test 161 U/L code = 2204) SGOT (AST) (test code = 2218) 87 U/L SGPT (ALT) (test code = 2219) 171 U/L COMPREHENSIVE METABOLIC [id number] 00:00:00 Test Item Value Reference Range Interpretation Comments GLUCOSE (test code = 2217) 110 MG/DL BUN (test code = 2208) 49 MG/DL CREATININE (test code = 2214) 1.64 MG/DL eGFR AMER. (test code 40 ML/MIN/1.73 = 63064) eGFR NON- AMER. (test 34 ML/MIN/1.73 code = 22010) CALCULATED BUN/CREAT (test 30 RATIO code = [...] (test code = 2219) 115 U/L LIPID [id number] 00:00:00 Test Item Value Reference Range Interpretation Comments CHOLESTEROL (test code = 2210) 180 MG/DL TRIGLYCERIDES (test code = 2232) 332 MG/DL HDL CHOLESTEROL (test code = 2220) 18 MG/DL CALCULATED LDL CHOL (test code = 96 MG/DL 2236) RISK RATIO LDL/HDL (test code = 5.31 RATIO 2237) LIPID [id number] 00:00:00 Test Item Value Reference Range Interpretation Comments CHOLESTEROL (test code = 2210) 180 MG/DL TRIGLYCERIDES (test code = 2232) 332 MG/DL HDL CHOLESTEROL (test code = 2220) 18 MG/DL CALCULATED LDL CHOL (test code = 96 MG/DL 2236) RISK RATIO LDL/HDL (test code = 5.31 RATIO 2238) CBC W/AUTO [id number] 00:00:00 Test Item Value Reference Range Interpretation [...] (test code = 1016) (NOTE) CBC W/AUTO [id number] 00:00:00 Test Item Value Reference Range Interpretation [...] (test code = 1016) (NOTE) CBC W/AUTO [id number] 00:00:00 Test Item Value Reference Range Interpretation [...] COMMENTS (test code = 1016) (NOTE) HEMOGLOBIN [id number] 00:00:00 Test Item Value Reference Range Interpretation Comments HEMOGLOBIN A1c (test code = 83787) 5.6 % HEMOGLOBIN [id number] 00:00:00 Test Item Value Reference Range Interpretation Comments HEMOGLOBIN A1c (test code = 88429) 5.6 % HEMOGLOBIN [id number] 00:00:00 Test Item Value Reference Range Interpretation Comments HEMOGLOBIN A1c (test code = 48516) 5.6 % [id number] 00:00:00 Test Item Value Reference Range Interpretation Comments TSH (test code = 2821) 1.2 UIU/ML [id number] 00:00:00 Test Item Value Reference Range Interpretation Comments TSH (test code = 2821) 1.2 UIU/ML [id number] 00:00:00 Test Item Value Reference Range Interpretation Comments TSH (test code = 2821) 1.2 UIU/ML COMPREHENSIVE METABOLIC [id number] 00:00:00 Test Item Value Reference Range Interpretation Comments GLUCOSE (test code = 2217) 110 MG/DL BUN (test code = 2208) 49 MG/DL CREATININE (test code = 2214) 1.64 MG/DL eGFR AMER. (test code 40 ML/MIN/1.73 = 49613) eGFR NON- AMER. (test 34 ML/MIN/1.73 code = 09290) CALCULATED BUN/CREAT (test 30 RATIO code = [...] (ALT) (test code = 2219) 115 U/L Notes Date/Time Note Provider Source 2013-08-06 14:43:15-00:00 - DIGITAL MAMMO SCREENING PEDRITO MA LORRAINE FAYE [place] BILATERAL DIGITAL SCREENING MAMMOGRAM WITH CAD: 08/06/2013 CLINICAL: Annual Screening. Current study was evaluated with a Scenic Designer d Detection (CAD) system. Exam is read without the lane efit of comparison films. Patient states their prior mammogram was performed over 10 years ago and are no longer available. There are scattered fibrogla ndular elements in both breasts that could obscure a lesion on mammography. There is a benign appearing calcification in the right breast. There also are benign appearing densities in the right breast. Additionally there is a benign appearing density in the left breast. No significant masses, calci fications, or other findings are seen in either breast. IMPRESSION: BENIGN There is no mammographic jill dence of malignancy. A screening mammogram in one year is recommended. SUMMARY: Prior mammograms would be of added benefit to document termite treater stability. This aids in establishing benignity. The patient should make additional efforts to locate their prior exams. An addendum will be made if additional films are provided. SL: 15. Andreina sparrow/:08/10/2013 11:04:17 Stacking Machine Operator: Holly JOHN, Shirinor keyon Shaffer [place] letter sent: Bilateral Benign Mammogram BI-RADS: 2 Benign
[2023-05-03 13:56] LABS: Hematocrit 34.2 % (36.0-45.0)
[2023-05-03] MEDS ORDERED: HYDRALAZINE HCL 20 MG/ML VIAL IV PRN (14:14)
[2023-05-03] MEDS ORDERED: HOME MED 1 EA UNK (Estradiol [Estrace] 42.5 GM Cream.Appl) VAG SCH (14:15)
--- NOTE | 2023-05-03 14:15 | P.CNS ---
Date of Consult: 05/03/23 Reason for Consult: Medical management Requesting Physician: Dany Adhikari Chief Complaint: Left hip pain s\P left hip arthroplasty History of Present Illness: Patient is a 67-year-old female with a past medical history significant for hypertension, osteoarthritis, hyperlipidemia, glaucoma who presents for a planned procedure-- left hip total replacement with her Surgeon. Patient reported that she has been having pain for quite some time now in her left hip and has attempted conservative management including physical therapy. Patient reported that she has been using occasional ibuprofen for pain management. Patient rated pain before the procedure as 10/10 in severity and described pain as aching in quality. Patient reported worsening pain in the left hip over time. Patient denies any other signs and symptoms. Pain is aggravated with weight bearing and relieved by nothing. Patient presented for the planned procedure. Patient tolerated procedure. Patient currently resting in bed. Patient denies any pain in the right hip at time of assessment. Allergies banana Allergy (Verified 01/25/23 08:03) throat itching levofloxacin [From Levaquin] Allergy (Verified 01/25/23 08:03) Itching Sulfa (Sulfonamide Antibiotics) Allergy (Verified 01/25/23 08:03) Itching Home Medications: Atorvastatin Calcium [Lipitor*] 10 mg PO BEDTIME 01/20/23 Estradiol [Estrace] 1 appl VG SEECOM 01/20/23 Lisinopril/Hydrochlorothiazide [Lisinopril-Hctz 20-25 mg Tab] 1 each PO DAILY 01/20/23 Timolol Maleate [Istalol] 1 gtt OP BID 01/20/23 Cyanocobalamin (Vitamin B-12) [Vitamin B12] 5,000 mcg PO DAILY #30 tab 02/01/23 Ferrous Sulfate 325 mg PO DAILY 04/28/23 Polysorbate 80/Glycerin [Refresh Dry Eye Therapy Drops] 1 each OP BID 04/28/23 Aspirin Chewable [Aspirin Chewable*] 1 tab PO DAILY 05/03/23 Mv-Min/Iron/Folic/Calcium/Vitk [Women's Multivitamin Tablet] 1 each PO DAILY 05/03/23 - Past Medical/Surgical History Diabetic: No -: GLAUCOMA -: HTN -: UTERINE PROLAPSE -: keratitis -: Hx PAUL (Dr. Chiu) -: RIGHT TOTAL HIP -: retinal reattachment both eyes - Family History Father Medical History: Diabetes, Stroke Mother Medical History: Diabetes, Stroke, Other (see notes) Notes: GLAUCOMA - Social History Smoking Status: Former smoker Alcohol use: Yes CD- Drugs: No Caffeine use: Yes Place of Residence: Home Review of Systems General: Unremarkable Eyes: Unremarkable ENT: Unremarkable Respiratory: Unremarkable Cardiovascular: Unremarkable Gastrointestinal: Unremarkable Genitourinary: Unremarkable Musculoskeletal: Other (Left hip pain) Integumentary: Unremarkable Neurological: Unremarkable Lymphatics: Unremarkable Physical Examination Temp Pulse Resp BP Pulse Ox 97 F 81 18 115/70 05/03/23 13:51 05/03/23 13:51 05/03/23 13:51 05/03/23 13:51 General: Alert, Oriented x3, Cooperative HEENT: Atraumatic, PERRLA, Mucous membr. moist/pink, EOMI, Sclerae nonicteric Neck: Supple, 2+ carotid pulse no bruit, No LAD, Without JVD or thyroid abnormality Respiratory: Clear to auscultation bilaterally, Normal air movement Cardiovascular: No edema, Regular rate/rhythm, Normal S1 S2 Capillary refill: <2 Seconds Gastrointestinal: Normal bowel sounds, Soft and benign, No tenderness Musculoskeletal: No tenderness Integumentary: No rashes, Other (Left hip incision ) Neurological: Normal speech, Normal tone, Normal affect Lymphatics: No axilla or inguinal lymphadenopathy Laboratory Data (last 24 hrs) 05/03/23 13:49: Hgb 11.3 L, Hct 34.2 L Conclusions/Impression: --Left hip osteoarthritis. Status post Left hip arthroplasty. Physical therapy consult initiated. Orthopedic surgeon on board. Further management per orthopedic surgeon. --Acute pain\osteoarthritis. We will manage pain with current pain medication regimen. --Hypertension. Stable. We will manage BP with hydralazine as needed. --Hyperlipidemia. Continue statin. --Glaucoma\Keratitis. Continue home medications. --YARELI. Continue ferrous sulfate --CKD 3A. Stable. Gilberto will hold off on SHANNON inhibitors. Avoid nephrotoxins. Continue p.o. hydration. We will continue to monitor renal functions. -- DVT prophylaxis with SCDs. Continue chemical prophylaxis in the a.m. Physician Review: Patient Assessed, Agree with Above Assessment and Plan Critical Care: No
[2023-05-03 14:47] VITALS: BMI 29.0
[2023-05-03 15:56] LABS: Magnesium 1.6 mg/dL (1.6-2.4); Phosphorus 3.6 mg/dL (2.5-4.9)
[2023-05-03] MEDS: HYDROCODONE/APAP 7.5/325 MG TAB PO PRN ×2 (15:57→23:41)
[2023-05-03] MEDS: CEFAZOLIN 1 GM in NA CHLORIDE 0.9% 50 ML IVPB SCH (17:18)
[2023-05-03] MEDS ORDERED: MAGNESIUM SULFATE 1 gm IVPB 1 GM/100 ML BAG IV ONE (18:00)
[2023-05-03 18:07] LABS: Absolute Lymphocytes (CBC) 1.1 K/uL (0.7-4.9); Hematocrit 34.8 % (36.0-45.0); Lymphocytes % 9.4 % (15.3-44.8); MCV 91.8 fL (80-100); MPV 6.7 fL (7.6-11.3); RBC Red Blood Cell Count 3.79 M/uL (3.86-4.86)
[2023-05-03 18:23] LABS: Albumin 3.5 g/dL (3.4-5.0); Bilirubin Total 0.3 mg/dL (0.2-1.0); Potassium 3.6 mEq/L (3.5-5.1); Protein, Total 6.7 g/dL (6.4-8.2)
[2023-05-03 20:04] LABS: Specific Gravity 1.015 (1.005-1.030); Urine Bacteria <20 /HPF (<20); Urine Bilirubin NEGATIVE (Negative); Urine Blood Negative (Negative); Urine Clarity Clear (Clear); Urine Color Light-Yellow (Yellow); Urine Glucose NEGATIVE (Negative); Urine Mucus Slight /HPF (None Seen); Urine Protein NEGATIVE (Negative); Urine RBC <5 /HPF (None Seen); Urine Urobilinogen Normal (Normal); Urine pH 5.5 (5.0-7.0)
[2023-05-03] MEDS: ATORVASTATIN 10 MG TAB PO SCH (20:23)
[2023-05-03] MEDS: TIMOLOL MALEATE OPTH SCH (20:23)
[2023-05-03] MEDS: GLYCERIN OPTH SCH (20:23)
[2023-05-03] MEDS: [UNRECOGNIZED DRUG - OTHER] OPTH SCH (20:23)
[2023-05-03] MEDS ORDERED: POTASSIUM 25 MEQ EFFERV TAB PO ONE (21:00)
[2023-05-04] MEDS: CEFAZOLIN 1 GM in NA CHLORIDE 0.9% 50 ML IVPB SCH ×2 (00:26→09:26)
[2023-05-04 03:45] LABS: Protime INR 1.06
[2023-05-04 03:46] LABS: Absolute Lymphocytes (CBC) 1.3 K/uL (0.7-4.9); Hematocrit 28.6 % (36.0-45.0); MCV 90.4 fL (80-100); MPV 6.8 fL (7.6-11.3); RBC Red Blood Cell Count 3.16 M/uL (3.86-4.86)
[2023-05-04 03:59] LABS: Potassium 4.2 mEq/L (3.5-5.1)
[2023-05-04 05:18] LABS: Magnesium 1.8 mg/dL (1.6-2.4)
[2023-05-04] MEDS ORDERED: MAGNESIUM SULFATE 1 gm IVPB 1 GM/100 ML BAG IV ONE (05:23)
--- NOTE | 2023-05-04 07:18 | P.PN ---
Date of Service: 05/04/23 Subjective: hip worse today compared to yesterday pain medication helping ambulated with PT today lives alone, states last time when to [facility] bed ROS: 10 point ROS as noted above, otherwise negative Physical Exam: GEN: Alert, oriented, NAD HEENT: Normal conjunctiva, sclera anicteric CV: Regular rate and rhythm, no edema Pulm: Nonlabored respirations on room air ABD: Soft, nontender, nondistended MSK: mild R hip discomfort on palpation Integumentary: surgical dressing c/d/i Neuro: Normal speech, normal affectm intact distal lower extremity sensation vitals reviewed Problem List: Left hip osteoarthritis, s/p Left hip arthroplasty (05/03) s/p Left hip arthroplasty 05/[address] Adhikari PT/OT consult pain medication as needed lives alone, states went to [facility] after last hip done in january, but thinks she'll be ok going home re-eval with PT this afternoon PAUL on CKD Nephrology consulted continue to monitor renal function hold home lisinopril-HCTZ BP low-normal IVF uptrending Cr, recheck in AM Hypertension low-normal hold lisinopril-hctz Hyperlipidemia - Continue statin. Glaucoma\Keratitis - Continue home medications. Iron Def Anemia, chronic - Continue ferrous sulfate. monitor H&H VTE: Lovenox Code: Full Dispo: Home with home health, ~24hrs
[2023-05-04] MEDS: [UNRECOGNIZED DRUG - OTHER] OPTH SCH ×2 (09:00→21:00)
[2023-05-04] MEDS: TIMOLOL MALEATE OPTH SCH ×3 (09:00→21:03)
[2023-05-04] MEDS: GLYCERIN OPTH SCH ×2 (09:00→21:00)
[2023-05-04] MEDS: MULTIVITAMIN TAB PO SCH (09:25)
[2023-05-04] MEDS: CYANOCOBALAMIN 1,000 MCG TAB PO SCH (09:25)
[2023-05-04] MEDS: ENOXAPARIN 40 MG/0.4 ML SQ SCH (09:25)
[2023-05-04] MEDS: HYDROCODONE/APAP 7.5/325 MG TAB PO PRN ×3 (09:25→21:02)
[2023-05-04] MEDS: FERROUS SULFATE 325 MG TAB PO SCH (09:26)
[2023-05-04] MEDS: DOCUSATE NA 100 MG CAP PO PRN (09:26)
[2023-05-04] MEDS: NA CHLORIDE 0.9% 1,000 ML IV SCH ×2 (09:30→21:05)
[2023-05-04] MEDS: ASPIRIN 81 MG CHEWABLE TABLET PO SCH (09:30)
[2023-05-04] MEDS ORDERED: HOME MED 1 EA UNK (Estradiol [Estrace] 42.5 GM Cream.Appl) VAG SCH (09:45)
--- NOTE | 2023-05-04 12:24 | P.CNS ---
Date of Consult: 05/04/23 Reason for Consult: PAUL Requesting Physician: Abdifatah Nolan Chief Complaint: Left hip pain s\P left hip arthroplasty History of Present Illness: Patient is a 67-year-old female with a past medical history signifi cant for essential Stage 1 hypertension, osteoarthritis, hyperlipidemia, glaucoma who presented for a planned elective procedure-- left hip total replacement. Pt has had some chronic pain at site and apparently failed conservative management including physical therapy. Patient seen post procedure has been in stable condition although some of her BP readings have been soft and her Cr level has risen in this setting and other. Pt has been taking Lisinopril/HCTZ at home per PCP, and does endorse some chronic lightheadedness. She has also taken NSAIDs on occasion for her OA. Allergies banana Allergy (Verified 01/25/23 08:03) throat itching levofloxacin [From Levaquin] Allergy (Verified 01/25/23 08:03) Itching Sulfa (Sulfonamide Antibiotics) Allergy (Verified 01/25/23 08:03) Itching Home Medications: Atorvastatin Calcium [Lipitor*] 10 mg PO BEDTIME 01/20/23 Estradiol [Estrace] 1 appl VG SEECOM 01/20/23 Lisinopril/Hydrochlorothiazide [Lisinopril-Hctz 20-25 mg Tab] 1 each PO DAILY 01/20/23 Timolol Maleate [Istalol] 1 gtt OP BID 01/20/23 Cyanocobalamin (Vitamin B-12) [Vitamin B12] 5,000 mcg PO DAILY #30 tab 02/01/23 Ferrous Sulfate 325 mg PO DAILY 04/28/23 Polysorbate 80/Glycerin [Refresh Dry Eye Therapy Drops] 1 each OP BID 04/28/23 Aspirin Chewable [Aspirin Chewable*] 1 tab PO DAILY 05/03/23 Mv-Min/Iron/Folic/Calcium/Vitk [Women's Multivitamin Tablet] 1 each PO DAILY 05/03/23 - Past Medical/Surgical History Diabetic: No -: GLAUCOMA -: HTN -: UTERINE PROLAPSE -: keratitis -: Hx PAUL (Dr. Chiu) -: RIGHT TOTAL HIP -: retinal reattachment both eyes - Family History Father Medical History: Diabetes, Stroke Mother Medical History: Diabetes, Stroke, Other (see notes) Notes: GLAUCOMA - Social History Smoking Status: Former smoker Alcohol use: Yes CD- Drugs: No Caffeine use: Yes Place of Residence: Home Review of Systems General: Unremarkable Eyes: As per HPI ENT: Unremarkable Respiratory: Unremarkable Cardiovascular: Light Headedness Gastrointestinal: Unremarkable Genitourinary: Unremarkable Musculoskeletal: As per HPI Integumentary: Unremarkable Neurological: Unremarkable Lymphatics: Unremarkable Physical Examination Temp Pulse Resp BP Pulse Ox 97.6 F 74 18 100/59 L 98 05/04/23 08:00 05/04/23 08:00 05/04/23 08:00 05/04/23 08:00 05/04/23 08:00 General: Alert, In no apparent distress, Oriented x3 HEENT: Atraumatic, Normocephalic Neck: Supple Respiratory: Clear to auscultation bilaterally, Normal air movement Cardiovascular: No edema, Normal pulses, Regular rate/rhythm, Normal S1 S2 Gastrointestinal: Soft and benign, Non-distended, No tenderness Musculoskeletal: No contractures, No tenderness Integumentary: No rashes, No tenderness/swelling Neurological: Normal speech, Normal tone, Normal affect Laboratory Data (last 24 hrs) 05/04/23 05:11: Magnesium Cancelled 05/04/23 03:08: Sodium 138, Potassium 4.2 D, BUN 38 H, Creatinine 1.48 H, Glucose 140 H, Magnesium 1.8 05/04/23 03:08: PT 11.7, INR 1.06 05/04/23 03:08: WBC 10.60, Hgb 9.8 L D, Hct 28.6 L, Plt Count 266 05/03/23 17:35: Sodium 139, Potassium 3.6, BUN 35 H, Creatinine 1.24 H, Glucose 158 H, Total Bilirubin 0.3, AST 15, ALT 28, Alkaline Phosphatase 57 05/03/23 17:35: WBC 11.30 H, Hgb 11.6 L, Hct 34.8 L, Plt Count 266 05/03/23 17:00: Hgb Cancelled, Hct Cancelled 05/03/23 15:30: Phosphorus 3.6, Magnesium 1.6 05/03/23 13:49: Hgb 11.3 L, Hct 34.2 L Conclusions/Impression: A/P) 1. Stage 1 PAUL with Cr level rising > 0.3 mg/dl in the setting of some relative hypotension, anesthesia, recent concurrent ACEi/thiazide diuretic use +/- any recent NSAIDs. 2. Metab chemistries acceptable. 3. Pt remains on IVF, no reports of oliguria. 4. UA on admission was not too impressive 5. D/c Lisinopril/HCTZ on discharge, pt instructed to monitor and maintain BP log and f/u in clinic to review that. 6. Re-assess BP and orthostatic vitals today and prior to discharge 7. Avoid PO and IV NSAIDs. 8. Will offer pt f/u in clinic to re-assess renal function within 1-2 weeks of discharge Blayne Gauthier MD, SUYAPA
[2023-05-04] MEDS: ATORVASTATIN 10 MG TAB PO SCH (21:03)
[2023-05-05 03:40] LABS: Hematocrit 26.5 % (36.0-45.0)
[2023-05-05 04:04] LABS: Magnesium 1.6 mg/dL (1.6-2.4); Potassium 3.5 mEq/L (3.5-5.1)
[2023-05-05] MEDS ORDERED: POTASSIUM 25 MEQ EFFERV TAB PO ONE (05:57)
[2023-05-05] MEDS ORDERED: MAGNESIUM SULFATE 1 gm IVPB 1 GM/100 ML BAG IV ONE (05:57)
--- NOTE | 2023-05-05 07:08 | P.PN ---
Date of Service: 05/05/23 Subjective: febrile this morning to 101, feels run down no specific new issue. denies cough, no dysuria, no urinary frequency/urgency, no diarrhea, no new abd pains hip pain more sore, but mostly the same states she lives alone, doesn't feel safe going home, requesting SNF ROS: 10 point ROS as noted above, otherwise negative Physical Exam: GEN: Alert, oriented, NAD HEENT: Normal conjunctiva, sclera anicteric CV: Regular rate and rhythm, no edema Pulm: Non-labored respirations on room air, clear bilaterally ABD: Soft, nontender, nondistended MSK: mild L hip discomfort on palpation Integumentary: surgical dressing c/d/i Neuro: Normal speech, normal affect, intact distal lower extremity sensation vitals reviewed Problem List: Left hip osteoarthritis, s/p Left hip arthroplasty (05/03) fever unknown origin, post-op PAUL on CKD Hypertension Hyperlipidemia Glaucoma\Keratitis Iron Def Anemia, chronic Left hip osteoarthritis, s/p Left hip arthroplasty (05/03) s/p Left hip arthroplasty 05/[address] Adhikari PT/OT consult pain medication as needed lives alone, states went to [facility] after last hip done in january, but thinks she'll be ok going home re-eval with PT this afternoon febrile (101) 05/05, no leukocytosis no clear source of infection CXR ordered for further eval fever unknown origin, post-op POD2 ROS negative, fever to 101 possibly atelectasis, no swelling / tenderness in lower extremities, and on lovenox; low likelihood for DVT check CXR urine 05/03 clear, no UTI symptoms if another fever, will do further workup ortho to eval surgical incision/site PAUL on CKD resolved after IVF and holding ACEI-HCTZ, Nephrology consulted continue to monitor renal function hold home lisinopril-HCTZ Hypertension low-normal hold lisinopril-hctz Hyperlipidemia - Continue statin. Glaucoma\Keratitis - Continue home medications. Iron Def Anemia, chronic - Continue ferrous sulfate. monitor H&H VTE: Lovenox Code: Full Dispo: SNF, ~2 days Patient is agreeable to SNF, was recently at [facility] after last hospitalization ss/cm assisting with placement
[2023-05-05] MEDS: ASPIRIN 81 MG CHEWABLE TABLET PO SCH (08:14)
[2023-05-05] MEDS: ENOXAPARIN 40 MG/0.4 ML SQ SCH (08:14)
[2023-05-05] MEDS: HYDROCODONE/APAP 7.5/325 MG TAB PO PRN (08:15)
[2023-05-05] MEDS: FERROUS SULFATE 325 MG TAB PO SCH (08:15)
[2023-05-05] MEDS: DOCUSATE NA 100 MG CAP PO PRN (08:15)
[2023-05-05] MEDS: CYANOCOBALAMIN 1,000 MCG TAB PO SCH (08:15)
[2023-05-05] MEDS: MULTIVITAMIN TAB PO SCH (08:15)
[2023-05-05] MEDS: GLYCERIN OPTH SCH ×2 (08:16→20:49)
[2023-05-05] MEDS: [UNRECOGNIZED DRUG - OTHER] OPTH SCH ×2 (08:16→20:49)
[2023-05-05] MEDS: TIMOLOL MALEATE OPTH SCH ×2 (08:16→21:30)
--- NOTE | 2023-05-05 10:34 | RAD REPORT ---
EXAM DESCRIPTION: Tiny Single View05/05/2023 10:24 am CLINICAL HISTORY: Fever COMPARISON: January 2023 FINDINGS: Area of subsegmental atelectasis left lung base The remainder lungs appear clear. Heart is normal size
[2023-05-05] MEDS: ACETAMINOPHEN 325 MG TABLET PO PRN ×2 (11:08→18:39)
[2023-05-05] MEDS: DRISDOL (VITAMIN D=ERGOCALCIFEROL) 50000 UNIT CAP PO SCH (14:41)
[2023-05-05] MEDS: CALCITROL 0.25 MCG CAP PO SCH (14:41)
[2023-05-05] MEDS: PIPER TAZO 3.375 GM in NA CHLORIDE 0.9% 100 ML IV SCH (18:51)
[2023-05-05 20:14] LABS: Specific Gravity 1.018 (1.005-1.030); Urine Bacteria None Seen /HPF (<20); Urine Bilirubin NEGATIVE (Negative); Urine Blood 2+ (Negative); Urine Clarity Clear (Clear); Urine Color Light-Yellow (Yellow); Urine Glucose NEGATIVE (Negative); Urine Mucus Slight /HPF (None Seen); Urine Protein 1+ (Negative); Urine Urobilinogen Normal (Normal)
[2023-05-05] MEDS: DOCUSATE NA 100 MG CAP PO SCH ×2 (20:48→21:00)
[2023-05-05] MEDS: ATORVASTATIN 10 MG TAB PO SCH (20:48)
--- NOTE | 2023-05-05 21:27 | P.PN ---
Date of Service: 05/05/23 Vital Signs Temp Pulse Resp BP Pulse Ox 99.1 F 91 H 18 99/53 L 95 05/05/23 20:00 05/05/23 20:00 05/05/23 20:00 05/05/23 20:00 05/05/23 20:00 Medications Acetaminophen (Acetaminophen 325 Mg Tablet) 500 mg PO Q6H PRN PRN Reason: TEMP > 100' F Last Admin: 05/05/23 18:39 Dose: 500 mg Hydrocodone Bitart/Acetaminophen (Hydrocodone/Apap 7.5/325 Mg Tab) 1 tab PO Q4H PRN PRN Reason: Pain scale 5-7 (Moderate) Last Admin: 05/05/23 08:15 Dose: 1 tab Aspirin (Aspirin 81 Mg Chewable Tablet) 81 mg PO DAILY [facility] Last Admin: 05/05/23 08:14 Dose: 81 mg Atorvastatin Calcium (Atorvastatin 10 Mg Tab) 10 mg PO BEDTIME [facility] Last Admin: 05/05/23 20:48 Dose: 10 mg Calcitriol (Calcitrol 0.25 Mcg Cap) 0.5 mcg PO DAILY [facility] Last Admin: 05/05/23 14:41 Dose: 0.5 mcg Cyanocobalamin (Cyanocobalamin 1,000 Mcg Tab) 5,000 mcg PO DAILY [facility] Last Admin: 05/05/23 08:15 Dose: 5,000 mcg Docusate Sodium (Docusate Na 100 Mg Cap) 100 mg PO BID [facility] Last Admin: 05/05/23 20:48 Dose: 100 mg Enoxaparin Sodium (Enoxaparin 40 Mg/0.4 Ml) 40 mg SQ DAILY [facility] Last Admin: 05/05/23 08:14 Dose: 40 mg Ergocalciferol (Drisdol (Vitamin D=Ergocalciferol) 85053 Unit Cap) 50,000 unit PO Q7D [facility] Last Admin: 05/05/23 14:41 Dose: 50,000 unit Ferrous Sulfate (Ferrous Sulfate 325 Mg Tab) 325 mg PO DAILY [facility] Last Admin: 05/05/23 08:15 Dose: 325 mg Home Med (Polysorbate 80/Glycerin [Refresh Dry Eye Therapy Drops]) 1 each OPTH BID [facility] Last Admin: 05/05/23 20:49 Dose: Not Given Home Med (Estradiol [Estrace]) 0.5 gm VAG SEECOM [facility] Last Admin: 05/04/23 10:11 Dose: 0.5 gm Home Med (Timolol Maleate [Istalol]) 1 gtt OPTH BID [facility] Last Admin: 05/05/23 08:16 Dose: 1 gtt Hydralazine HCl (Hydralazine Hcl 20 Mg/Ml Vial) 10 mg IV Q6HP PRN PRN Reason: Titrate to SBP (MUST DEFINE) Piperacillin Sod/Tazobactam (Sod 3.375 gm/ Sodium Chloride) 100 mls @ 25 mls/hr IV Q8HR [facility]; Protocol Last Admin: 05/05/23 18:51 Dose: 100 mls Multivitamins/Minerals (Multivitamin Tab) 1 tab PO DAILY [facility] Last Admin: 05/05/23 08:15 Dose: 1 tab Ondansetron HCl (Ondansetron 4 Mg/2 Ml Vial) 4 mg IV Q6H PRN PRN Reason: NAUSEA / VOMITING Sodium Chloride (Flush Normal Saline 10 Ml) 10 ml IV BID [facility] Last Admin: 05/05/23 20:48 Dose: 10 ml Lab Results (last 24 hrs) 05/05/23 20:01: Urine Color Light-yellow, Urine Clarity Clear, Urine pH 6.0, Ur Specific Howells 1.018, Glucose (UA)(Auto) Negative, Urine Ketones Trace H, Urine Blood 2+ H, Urine Nitrite Negative, Urine Bilirubin Negative, Urine Urobilinogen Normal, Ur Leukocyte Esterase Negative, Urine RBC 11-20 H, Urine WBC <5, Ur Squamous Epith Cells <5, Urine Bacteria None seen, Urine Mucus Slight, Urine Yeast (Budding) Trace H, Urine Culture Reflexed Not needed, Urine Total Protein 1+ H 05/05/23 03:20: Sodium 138, Potassium 3.5 D, Chloride 108 H, Carbon Dioxide 26, Anion Gap 7.5, BUN 30 H, Creatinine 1.09 H, Est GFR (CKD-EPI) 56 L, Glucose 122 H, Calcium 7.7 L D, Magnesium 1.6 05/05/23 03:20: Hgb 8.9 L D, Hct 26.5 L Assessment/ Plan: Nephrology No dyspnea No chest pain Chilled No acute events overnight Vitals, medications, blood work and imaging reviewed in the chart. NAD. NCAT. MMM. Neck supple. Normal respiratory effort/ CTA. RRR. Abd ND. No C/C. LE Edema none. No rash. AAO. Normal speech. Stage I PAUL CKD II -No NSAIDs Hypokalemia -Replete potassium Hyperglycemia -Check A1C Hypocalcemia -Start Ergo -Start Calcitriol Anemia in chronic illness -Monitor H&H -PRBC prn Abnormal Lab Results 05/05/23 05/05/23 05/05/23 03:20 03:20 20:01 Hgb 8.9 L D Hct 26.5 L Sodium 138 Potassium 3.5 D Chloride 108 H Carbon Dioxide 26 Anion Gap 7.5 BUN 30 H Creatinine 1.09 H Est GFR (CKD-EPI) 56 L Glucose 122 H Calcium 7.7 L D Magnesium 1.6 Urine Color Light-yellow Urine Clarity Clear Urine pH 6.0 Ur Specific Howells 1.018 Glucose (UA)(Auto) Negative Urine Ketones Trace H Urine Blood 2+ H Urine Nitrite Negative Urine Bilirubin Negative Urine Urobilinogen Normal Ur Leukocyte Esterase Negative Urine RBC 11-20 H Urine WBC <5 Ur Squamous Epith Cells <5 Urine Bacteria None seen Urine Mucus Slight Urine Yeast (Budding) Trace H Urine Culture Reflexed Not needed Urine Total Protein 1+ H
[2023-05-06] MEDS: PIPER TAZO 3.375 GM in NA CHLORIDE 0.9% 100 ML IV SCH ×2 (00:22→08:24)
[2023-05-06] MEDS: ACETAMINOPHEN 325 MG TABLET PO PRN (01:53)
[2023-05-06] MEDS ORDERED: NA CHLORIDE 0.9% 500 ML IV ONE (03:35)
[2023-05-06] MEDS ORDERED: DICYCLOMINE HCL 10 MG CAP PO ONE (04:17)
[2023-05-06 06:08] LABS: Absolute Lymphocytes (CBC) 1.1 K/uL (0.7-4.9); Hematocrit 28.5 % (36.0-45.0); Lymphocytes % 11.1 % (15.3-44.8); MCV 91.2 fL (80-100); MPV 6.7 fL (7.6-11.3); RBC Red Blood Cell Count 3.13 M/uL (3.86-4.86)
[2023-05-06 06:26] LABS: Albumin 2.5 g/dL (3.4-5.0); Bilirubin Total 0.7 mg/dL (0.2-1.0); Potassium 3.1 mEq/L (3.5-5.1); Protein, Total 5.5 g/dL (6.4-8.2)
[2023-05-06] MEDS ORDERED: POTASSIUM 25 MEQ EFFERV TAB PO ONE (06:32)
--- NOTE | 2023-05-06 07:08 | P.PN ---
Date of Service: 05/06/23 Subjective: crampy abdominal pains multiple episodes of diarrhea that began last night cdiff + afebrile overnight ROS: 10 point ROS as noted above, otherwise negative Physical Exam: GEN: Alert, oriented, NAD HEENT: Normal conjunctiva, sclera anicteric CV: Regular rate and rhythm, no edema Pulm: Non-labored respirations on room air, clear bilaterally ABD: Soft, mild tenderness in periumbilical region, non-distended MSK: mild L hip discomfort on palpation Integumentary: surgical dressing c/d/i Neuro: Normal speech, normal affect, intact distal lower extremity sensation vitals reviewed Problem List: C. diff colitis Left hip osteoarthritis, s/p Left hip arthroplasty (05/03) PAUL on CKD Hypertension Hyperlipidemia Glaucoma\Keratitis Iron Def Anemia, chronic C. diff colitis diarrhea began 05/05 evening, after having fever suspect secondary to Augmentin use - over past week for possible UTI possibly cause of fever 05/05 AM, however was asymptomatic, and CXR noted atelectasis CXR (05/05): Area of subsegmental atelectasis left lung base urine 05/03 clear, no UTI symptoms started PO vanc (05/06-), will need 10 days treatment monitor diarrhea, IVF if needed ID consulted Left hip osteoarthritis, s/p Left hip arthroplasty (05/03) s/p Left hip arthroplasty 05/[address] Adhikari PT/OT consult pain medication as needed lives alone, states went to [facility] after last hip done in january, but thinks she'll be ok going home re-eval with PT this afternoon PAUL on CKD resolved after IVF and holding ACEI-HCTZ, Nephrology consulted continue to monitor renal function hold home lisinopril-HCTZ Hypertension low-normal holding lisinopril-hctz may need some IVF if diarrhea worsens Hyperlipidemia - Continue statin. Glaucoma\Keratitis - Continue home medications. Iron Def Anemia, chronic - Continue ferrous sulfate. monitor H&H VTE: Lovenox Code: Full Dispo: SNF, ~2 days Patient is agreeable to SNF, was recently at [facility] after last hospitalization ss/cm assisting with placement
[2023-05-06 07:11] LABS: Magnesium 1.6 mg/dL (1.6-2.4)
[2023-05-06 07:42] LABS: Platelet Estimate ADEQ
[2023-05-06 07:43] LABS: Blood Morphology Comment NOT SEEN (NOT SEEN)
[2023-05-06] MEDS: DOCUSATE NA 100 MG CAP PO SCH ×2 (08:08→20:33)
[2023-05-06] MEDS: ENOXAPARIN 40 MG/0.4 ML SQ SCH (08:17)
[2023-05-06] MEDS: CYANOCOBALAMIN 1,000 MCG TAB PO SCH (08:17)
[2023-05-06] MEDS: CALCITROL 0.25 MCG CAP PO SCH (08:17)
[2023-05-06] MEDS: FERROUS SULFATE 325 MG TAB PO SCH (08:17)
[2023-05-06] MEDS: TIMOLOL MALEATE OPTH SCH ×2 (08:17→20:32)
[2023-05-06] MEDS: MULTIVITAMIN TAB PO SCH (08:17)
[2023-05-06] MEDS: ASPIRIN 81 MG CHEWABLE TABLET PO SCH (08:17)
[2023-05-06] MEDS: GLYCERIN OPTH SCH ×2 (08:18→20:32)
[2023-05-06] MEDS: [UNRECOGNIZED DRUG - OTHER] OPTH SCH ×2 (08:18→20:32)
[2023-05-06] MEDS ORDERED: DOCUSATE NA 100 MG CAP PO SCH (09:00)
[2023-05-06 09:45] LABS: C.diff Antigen/Toxin Ag pos : Tox pos (NEG : NEG)
[2023-05-06] MEDS ORDERED: Magnesium Sulfate 2gm IVPB 2 G/50 ML BAG IV ONE (10:23)
[2023-05-06] MEDS: VANCOMYCIN ORAL SOLN 250 MG/5 ML OSYR PO SCH ×2 (11:16→16:11)
--- NOTE | 2023-05-06 14:52 | P.CNS ---
Date of Consult: 05/06/23 Reason for Consult: C.diff Requesting Physician: Abdifatah Nolan Chief Complaint: Left hip pain s\P left hip arthroplasty History of Present Illness: Patient is a 67-year-old female with a past medical history significant for hypertension, osteoarthritis, hyperlipidemia and glaucoma who presented for a planned procedure-- left hip total replacement with her Surgeon on 05/03. ID consulted for C.diff Allergies banana Allergy (Verified 01/25/23 08:03) throat itching levofloxacin [From Levaquin] Allergy (Verified 01/25/23 08:03) Itching Sulfa (Sulfonamide Antibiotics) Allergy (Verified 01/25/23 08:03) Itching Home medications list reviewed: Yes Home Medications: Atorvastatin Calcium [Lipitor*] 10 mg PO BEDTIME 01/20/23 Estradiol [Estrace] 1 appl VG SEECOM 01/20/23 Lisinopril/Hydrochlorothiazide [Lisinopril-Hctz 20-25 mg Tab] 1 each PO DAILY 01/20/23 Timolol Maleate [Istalol] 1 gtt OP BID 01/20/23 Cyanocobalamin (Vitamin B-12) [Vitamin B12] 5,000 mcg PO DAILY #30 tab 02/01/23 Ferrous Sulfate 325 mg PO DAILY 04/28/23 Polysorbate 80/Glycerin [Refresh Dry Eye Therapy Drops] 1 each OP BID 04/28/23 Aspirin Chewable [Aspirin Chewable*] 1 tab PO DAILY 05/03/23 Mv-Min/Iron/Folic/Calcium/Vitk [Women's Multivitamin Tablet] 1 each PO DAILY 05/03/23 - Past Medical/Surgical History Diabetic: No -: GLAUCOMA -: HTN -: UTERINE PROLAPSE -: keratitis -: Hx PAUL (Dr. Chiu) -: RIGHT TOTAL HIP -: retinal reattachment both eyes - Family History Father Medical History: Diabetes, Stroke Mother Medical History: Diabetes, Stroke, Other (see notes) Notes: GLAUCOMA - Social History Smoking Status: Former smoker Alcohol use: Yes CD- Drugs: No Caffeine use: Yes Place of Residence: Home Review of Systems 10-point ROS is otherwise unremarkable Gastrointestinal: Abdominal Pain, Diarrhea, Other (decreased appetite) Musculoskeletal: Other (hip pain) Physical Examination Temp Pulse Resp BP Pulse Ox 97.0 F 67 16 98/58 L 96 05/06/23 12:00 05/06/23 12:00 05/06/23 12:00 05/06/23 12:00 05/06/23 12:00 General: Alert, In no apparent distress, Oriented x3 HEENT: Atraumatic, Normocephalic Neck: Supple, JVD not distended Respiratory: Clear to auscultation bilaterally, Normal air movement Cardiovascular: Normal pulses, Other (trace BLE edema) Gastrointestinal: Hyperactive Musculoskeletal: No clubbing, No swelling Integumentary: No rashes, No breakdown Neurological: Normal speech, Normal tone, Normal affect Laboratory Data 05/06/23 13:39: Potassium 3.1 L 05/06/23 05:38: Sodium 136, Potassium 3.1 L, BUN 19 H, Creatinine 1.00, Glucose 121 H, Magnesium 1.6, Total Bilirubin 0.7, AST 20, ALT 17, Alkaline Phosphatase 42 L 05/06/23 05:38: WBC 9.70, Hgb 9.5 L, Hct 28.5 L, Plt Count 225 Microtbiology Data - Reviewed Imagings Data: - Reviewed Conclusions/Impression: Problem List C. diff colitis Anemia Osteoarthritis Hypertension Hyperlipidemia Glaucoma *allergies: banana, levofloxacin, sulfa* C. difficile Infection - C.diff antigen = positive , toxin = positive - On Vancomycin PO (05/06) - On probiotic Blood cultures 05/05: No growth to date WBC 9.7 Afebrile Recommendations - Continue Vancomycin PO x 10 days (started 05/06) - Continue probiotic - Monitor WBC and fever trends - Patient with decreased appetite, nutritional support as needed ID will follow up with patient as needed. Case discussed with Junior Zaldivar
[2023-05-06] MEDS: HYDROCODONE/APAP 7.5/325 MG TAB PO PRN (16:11)
--- NOTE | 2023-05-06 16:19 | P.PN ---
(S) Pt has been having diarrhea with Cdiff, some crampy abd pain. General: Alert, In no apparent distress, Oriented x3 HEENT: Atraumatic, Normocephalic Neck: Supple Respiratory: Clear to auscultation bilaterally, Normal air movement Cardiovascular: No edema, Normal pulses, Regular rate/rhythm, Normal S1 S2 Gastrointestinal: Soft and benign, Non-distended, No sig tenderness Musculoskeletal: No contractures, No tenderness Integumentary: No rashes, No tenderness/swelling Neurological: Normal speech, Normal tone, Normal affect Laboratory Data (last 24 hrs) Conclusions/Impression: A/P) 1. Stage 1 PAUL with Cr level rising > 0.3 mg/dl in the setting of some relative hypotension, anesthesia, recent concurrent ACEi/thiazide diuretic use +/- any recent NSAIDs. Resolved post hydration 2. K and Mg levels have been low due to GI losses, cont to replete 3. Will place back on IVF with NS and KCL 4. UA on admission was not too impressive 5. D/c Lisinopril/HCTZ on discharge, pt instructed to monitor and maintain BP log and f/u in clinic to review that.e 6. Avoid PO and IV NSAIDs. 7. Treatment of C-diff and other per hospitalist team. Blayne Gauthier MD, [facility]
[2023-05-06] MEDS ORDERED: NS KCL 20MEQ 20 MEQ/1,000 ML BAG IV SCH (17:00)
[2023-05-06] MEDS ORDERED: POTASSIUM CL SA 10 MEQ TAB PO ONE (17:00)
[2023-05-06] MEDS: ATORVASTATIN 10 MG TAB PO SCH (20:32)
[2023-05-07] MEDS: VANCOMYCIN ORAL SOLN 250 MG/5 ML OSYR PO SCH ×4 (00:32→17:42)
--- NOTE | 2023-05-07 07:02 | P.PN ---
Date of Service: 05/07/23 Subjective: feels diarrhea is improving, less frequency, less amount per BM 3 liquid BM overnight abd pain improved afebrile ROS: 10 point ROS as noted above, otherwise negative Physical Exam: GEN: Alert, oriented, NAD HEENT: Normal conjunctiva, sclera anicteric CV: Regular rate and rhythm, no edema Pulm: Non-labored respirations on room air, clear bilaterally ABD: Soft, mild tenderness in periumbilical region, non-distended MSK: mild L hip discomfort on palpation Integumentary: surgical dressing c/d/i Neuro: Normal speech, normal affect vitals reviewed Problem List: C. diff colitis Left hip osteoarthritis, s/p Left hip arthroplasty (05/03) PAUL on CKD Hypertension Hyperlipidemia Glaucoma\Keratitis Iron Def Anemia, chronic C. diff colitis diarrhea began 05/05 evening, after having fever suspect secondary to Augmentin use - over past week for possible UTI possibly cause of fever 05/05 AM, however was asymptomatic, and CXR noted atelectasis CXR (05/05): Area of subsegmental atelectasis left lung base urine 05/03 clear, no UTI symptoms started PO vanc (05/06-), will need 10 days treatment monitor diarrhea, IVF if needed ID consulted Left hip osteoarthritis, s/p Left hip arthroplasty (05/03) s/p Left hip arthroplasty 05/[address] Adhikari PT/OT consult pain medication as needed lives alone, states went to [facility] after last hip done in january again, feels unsafe going home at this time, asking about SNF re-eval with PT PAUL on CKD resolved after IVF and holding ACEI-HCTZ, Nephrology consulted continue to monitor renal function hold home lisinopril-HCTZ given IVF 05/06, DCd Hypertension low-normal holding lisinopril-hctz Hyperlipidemia - Continue statin. Glaucoma\Keratitis - Continue home medications. Iron Def Anemia, chronic - Continue ferrous sulfate. monitor H&H VTE: Lovenox Code: Full Dispo: SNF, pending further improvement of diarrhea, Patient is agreeable to SNF, was recently at [facility] after last hospitalization ss/cm consulted
[2023-05-07 07:33] LABS: Potassium 3.6 mEq/L (3.5-5.1)
[2023-05-07] MEDS ORDERED: MAGNESIUM OXIDE 400 MG TAB PO ONE (08:02)
[2023-05-07] MEDS ORDERED: POTASSIUM CL SA 10 MEQ TAB PO ONE (08:02)
[2023-05-07] MEDS: DOCUSATE NA 100 MG CAP PO SCH ×2 (09:00→20:29)
[2023-05-07] MEDS: [UNRECOGNIZED DRUG - OTHER] OPTH SCH ×2 (09:00→20:30)
[2023-05-07] MEDS: GLYCERIN OPTH SCH ×2 (09:00→20:30)
[2023-05-07] MEDS: CYANOCOBALAMIN 1,000 MCG TAB PO SCH (10:03)
[2023-05-07] MEDS: CALCITROL 0.25 MCG CAP PO SCH (10:04)
[2023-05-07] MEDS: FERROUS SULFATE 325 MG TAB PO SCH (10:05)
[2023-05-07] MEDS: MULTIVITAMIN TAB PO SCH (10:06)
[2023-05-07] MEDS: ASPIRIN 81 MG CHEWABLE TABLET PO SCH (10:06)
[2023-05-07] MEDS: ENOXAPARIN 40 MG/0.4 ML SQ SCH (10:07)
[2023-05-07] MEDS: TIMOLOL MALEATE OPTH SCH ×2 (10:10→20:30)
[2023-05-07] MEDS: ATORVASTATIN 10 MG TAB PO SCH (20:29)
--- NOTE | 2023-05-07 20:55 | P.PN ---
Date of Service: 05/07/23 Vital Signs Temp Pulse Resp BP Pulse Ox 98.6 F 74 16 121/78 98 05/07/23 16:00 05/07/23 16:00 05/07/23 16:00 05/07/23 16:00 05/07/23 16:00 Medications Acetaminophen (Acetaminophen 325 Mg Tablet) 500 mg PO Q6H PRN PRN Reason: TEMP > 100' F Last Admin: 05/06/23 01:53 Dose: 500 mg Hydrocodone Bitart/Acetaminophen (Hydrocodone/Apap 7.5/325 Mg Tab) 1 tab PO Q4H PRN PRN Reason: Pain scale 5-7 (Moderate) Last Admin: 05/06/23 16:11 Dose: 1 tab Aspirin (Aspirin 81 Mg Chewable Tablet) 81 mg PO DAILY [facility] Last Admin: 05/07/23 10:06 Dose: 81 mg Atorvastatin Calcium (Atorvastatin 10 Mg Tab) 10 mg PO BEDTIME [facility] Last Admin: 05/07/23 20:29 Dose: 10 mg Calcitriol (Calcitrol 0.25 Mcg Cap) 0.5 mcg PO DAILY [facility] Last Admin: 05/07/23 10:04 Dose: 0.5 mcg Cyanocobalamin (Cyanocobalamin 1,000 Mcg Tab) 5,000 mcg PO DAILY [facility] Last Admin: 05/07/23 10:03 Dose: 5,000 mcg Docusate Sodium (Docusate Na 100 Mg Cap) 100 mg PO BID [facility] Last Admin: 05/07/23 20:29 Dose: Not Given Enoxaparin Sodium (Enoxaparin 40 Mg/0.4 Ml) 40 mg SQ DAILY [facility] Last Admin: 05/07/23 10:07 Dose: 40 mg Ergocalciferol (Drisdol (Vitamin D=Ergocalciferol) 79874 Unit Cap) 50,000 unit PO Q7D [facility] Last Admin: 05/05/23 14:41 Dose: 50,000 unit Ferrous Sulfate (Ferrous Sulfate 325 Mg Tab) 325 mg PO DAILY [facility] Last Admin: 05/07/23 10:05 Dose: 325 mg Home Med (Polysorbate 80/Glycerin [Refresh Dry Eye Therapy Drops]) 1 each OPTH BID [facility] Last Admin: 05/07/23 20:30 Dose: 1 each Home Med (Estradiol [Estrace]) 0.5 gm VAG SEECOM [facility] Last Admin: 05/04/23 10:11 Dose: 0.5 gm Home Med (Timolol Maleate [Istalol]) 1 gtt OPTH BID [facility] Last Admin: 05/07/23 20:30 Dose: 1 gtt Hydralazine HCl (Hydralazine Hcl 20 Mg/Ml Vial) 10 mg IV Q6HP PRN PRN Reason: Titrate to SBP (MUST DEFINE) Multivitamins/Minerals (Multivitamin Tab) 1 tab PO DAILY [facility] Last Admin: 05/07/23 10:06 Dose: 1 tab Ondansetron HCl (Ondansetron 4 Mg/2 Ml Vial) 4 mg IV Q6H PRN PRN Reason: NAUSEA / VOMITING Sodium Chloride (Flush Normal Saline 10 Ml) 10 ml IV BID [facility] Last Admin: 05/07/23 20:30 Dose: 10 ml Vancomycin HCl (Vancomycin Oral Soln 250 Mg/5 Ml [place]) 125 mg PO Q6HR [facility]; Protocol Last Admin: 05/07/23 17:42 Dose: 125 mg Lab Results (last 24 hrs) 05/07/23 06:38: Sodium 137, Potassium 3.6, Chloride 109 H, Carbon Dioxide 25, Anion Gap 6.6, BUN 18, Creatinine 0.81, Est GFR (CKD-EPI) 81 L, Glucose 104, Calcium 7.9 L 05/07/23 06:38: Hgb 9.0 L, Hct 26.0 L 05/06/23 22:54: Potassium 3.9 D 05/02/23 10:29: Crossmatch See Detail Microbiology Results 05/05/23 12:37 Blood - Blood Aerobic Blood Culture - Preliminary No growth in 24 hours. 05/05/23 12:37 Blood - Blood Anaerobic Blood Culture - Preliminary No growth in 24 hours. 05/05/23 12:37 Blood - Blood Aerobic Blood Culture - Preliminary No growth in 24 hours. 05/05/23 12:37 Blood - Blood Anaerobic Blood Culture - Preliminary No growth in 24 hours. Assessment/ Plan: Nephrology No dyspnea No chest pain +Appetite +Diarrhea No acute events overnight Vitals, medications, blood work and imaging reviewed in the chart. NAD. NCAT. MMM. Neck supple. Normal respiratory effort/ CTA. RRR. Abd ND. No C/C. LE Edema none. No rash. AAO. Normal speech. Stage I PAUL CKD II -No NSAIDs Hypokalemia -Replete potassium Hyperglycemia A1C 5.7 -No sugar diet Hypocalcemia -Continue Ergo -Continue Calcitriol Anemia in chronic illness -Monitor H&H -PRBC prn 05/05/23 05/05/23 05/05/23 03:20 03:20 20:01 Hgb 1.09 H Est GFR (CKD-EPI) 56 L Glucose 122 H Calcium 7.7 L D Magnesium 1.6 Urine Color Light-yellow Urine Clarity Clear Urine pH 6.0 Ur Specific [place] 1.018 Glucose (UA)(Auto) Negative Urine Ketones Trace H Urine Blood 2+ H Urine Nitrite Negative Urine Bilirubin Negative Urine Urobilinogen Normal Ur Leukocyte Esterase Negative Urine RBC 11-20 H Urine WBC <5 Ur Squamous Epith Cells <5 Urine Bacteria None seen Urine Mucus Slight Urine Yeast (Budding) Trace H Urine Culture Reflexed Not needed Urine Total Protein 1+ H
[2023-05-08] MEDS: VANCOMYCIN ORAL SOLN 250 MG/5 ML OSYR PO SCH ×4 (00:09→17:11)
--- NOTE | 2023-05-08 06:57 | P.PN ---
Date of Service: 05/08/23 Subjective: more loose stool overnight/early AM, improving later this morning feels more steady on feet - has been getting up to bathroom feels may be able to go home if a little more improvement and not need SNF ROS: 10 point ROS as noted above, otherwise negative Physical Exam: GEN: Alert, oriented, NAD CV: Regular rate and rhythm, no edema Pulm: Non-labored respirations on room air, clear bilaterally ABD: Soft, mild tenderness in periumbilical region, non-distended MSK: mild L hip discomfort on palpation Integumentary: surgical dressing c/d/i Neuro: Normal speech, normal affect vitals reviewed Problem List: C. diff colitis Left hip osteoarthritis, s/p Left hip arthroplasty (05/03) PAUL on CKD Hypertension Hyperlipidemia Glaucoma\Keratitis Iron Def Anemia, chronic C. diff colitis diarrhea began 05/05 evening, after having fever suspect secondary to Augmentin use - over past week for possible UTI possibly cause of fever 05/05 AM, however was asymptomatic, and CXR noted atelectasis started PO vanc (05/06-), will need 10 days treatment monitor diarrhea, IVF if needed ID consulted improving slightly 05/08, still >5 / 24hrs Left hip osteoarthritis, s/p Left hip arthroplasty (05/03) s/p Left hip arthroplasty 05/[address] Adhikari PT/OT consult pain medication as needed lives alone, states went to [facility] after last hip done in january; again, feels unsafe going home at this time, asking about SNF a few days ago, on 05/08 reported feeling improvement, and may be able to go home if improves more re-eval with PT PAUL on CKD resolved after IVF and holding ACEI-HCTZ, Nephrology consulted continue to monitor renal function hold home lisinopril-HCTZ given IVF 05/06, DCd Hypertension low-normal holding lisinopril-hctz Hyperlipidemia - Continue statin. Glaucoma\Keratitis - Continue home medications. Iron Def Anemia, chronic - Continue ferrous sulfate. monitor H&H VTE: Lovenox Code: Full Dispo: SNF vs home, pending further improvement of diarrhea, Patient initially requested SNF, was recently at [facility] after last hospitalization possibly home if improves further ss/cm consulted
[2023-05-08 07:45] LABS: Absolute Lymphocytes (CBC) 2.7 K/uL (0.7-4.9); Hematocrit 26.3 % (36.0-45.0); MCV 90.4 fL (80-100); MPV 6.9 fL (7.6-11.3); RBC Red Blood Cell Count 2.91 M/uL (3.86-4.86)
[2023-05-08 07:59] LABS: Magnesium 1.8 mg/dL (1.6-2.4); Potassium 3.8 mEq/L (3.5-5.1)
[2023-05-08] MEDS: TIMOLOL MALEATE OPTH SCH ×2 (08:56→21:56)
[2023-05-08] MEDS: ENOXAPARIN 40 MG/0.4 ML SQ SCH (08:56)
[2023-05-08] MEDS: CYANOCOBALAMIN 1,000 MCG TAB PO SCH (08:57)
[2023-05-08] MEDS: FERROUS SULFATE 325 MG TAB PO SCH (08:57)
[2023-05-08] MEDS: MULTIVITAMIN TAB PO SCH (08:57)
[2023-05-08] MEDS: CALCITROL 0.25 MCG CAP PO SCH (08:57)
[2023-05-08] MEDS: ASPIRIN 81 MG CHEWABLE TABLET PO SCH (08:57)
[2023-05-08] MEDS: DOCUSATE NA 100 MG CAP PO SCH ×2 (08:58→21:00)
[2023-05-08] MEDS: GLYCERIN OPTH SCH ×2 (08:58→21:00)
[2023-05-08] MEDS: [UNRECOGNIZED DRUG - OTHER] OPTH SCH ×2 (08:58→21:00)
--- NOTE | 2023-05-08 21:54 | P.PN ---
Date of Service: 05/08/23 Vital Signs Temp Pulse Resp BP Pulse Ox 97.6 F 70 16 107/65 100 05/08/23 16:00 05/08/23 16:00 05/08/23 16:00 05/08/23 16:00 05/08/23 16:00 Medications Acetaminophen (Acetaminophen 325 Mg Tablet) 500 mg PO Q6H PRN PRN Reason: TEMP > 100' F Last Admin: 05/06/23 01:53 Dose: 500 mg Hydrocodone Bitart/Acetaminophen (Hydrocodone/Apap 7.5/325 Mg Tab) 1 tab PO Q4H PRN PRN Reason: Pain scale 5-7 (Moderate) Last Admin: 05/06/23 16:11 Dose: 1 tab Aspirin (Aspirin 81 Mg Chewable Tablet) 81 mg PO DAILY [facility] Last Admin: 05/08/23 08:57 Dose: 81 mg Atorvastatin Calcium (Atorvastatin 10 Mg Tab) 10 mg PO BEDTIME [facility] Last Admin: 05/07/23 20:29 Dose: 10 mg Calcitriol (Calcitrol 0.25 Mcg Cap) 0.5 mcg PO DAILY [facility] Last Admin: 05/08/23 08:57 Dose: 0.5 mcg Cyanocobalamin (Cyanocobalamin 1,000 Mcg Tab) 5,000 mcg PO DAILY [facility] Last Admin: 05/08/23 08:57 Dose: 5,000 mcg Docusate Sodium (Docusate Na 100 Mg Cap) 100 mg PO BID [facility] Last Admin: 05/08/23 08:58 Dose: Not Given Enoxaparin Sodium (Enoxaparin 40 Mg/0.4 Ml) 40 mg SQ DAILY [facility] Last Admin: 05/08/23 08:56 Dose: 40 mg Ergocalciferol (Drisdol (Vitamin D=Ergocalciferol) 02880 Unit Cap) 50,000 unit PO Q7D [facility] Last Admin: 05/05/23 14:41 Dose: 50,000 unit Ferrous Sulfate (Ferrous Sulfate 325 Mg Tab) 325 mg PO DAILY [facility] Last Admin: 05/08/23 08:57 Dose: 325 mg Home Med (Polysorbate 80/Glycerin [Refresh Dry Eye Therapy Drops]) 1 each OPTH BID [facility] Last Admin: 05/08/23 08:58 Dose: Not Given Home Med (Estradiol [Estrace]) 0.5 gm VAG SEECOM [facility] Last Admin: 05/04/23 10:11 Dose: 0.5 gm Home Med (Timolol Maleate [Istalol]) 1 gtt OPTH BID [facility] Last Admin: 05/08/23 08:56 Dose: 1 gtt Hydralazine HCl (Hydralazine Hcl 20 Mg/Ml Vial) 10 mg IV Q6HP PRN PRN Reason: Titrate to SBP (MUST DEFINE) Multivitamins/Minerals (Multivitamin Tab) 1 tab PO DAILY [facility] Last Admin: 05/08/23 08:57 Dose: 1 tab Ondansetron HCl (Ondansetron 4 Mg/2 Ml Vial) 4 mg IV Q6H PRN PRN Reason: NAUSEA / VOMITING Sodium Chloride (Flush Normal Saline 10 Ml) 10 ml IV BID [facility] Last Admin: 05/08/23 08:58 Dose: 10 ml Vancomycin HCl (Vancomycin Oral Soln 250 Mg/5 Ml [place]) 125 mg PO Q6HR [facility]; Protocol Last Admin: 05/08/23 17:11 Dose: 125 mg Lab Results (last 24 hrs) 05/08/23 06:58: Sodium 140, Potassium 3.8, Chloride 112 H, Carbon Dioxide 25, Anion Gap 6.8, BUN 18, Creatinine 0.84, Est GFR (CKD-EPI) 77 L, Glucose 92, Calcium 8.3 L, Magnesium 1.8 05/08/23 06:58: WBC 8.20, RBC 2.91 L, Hgb 9.0 L, Hct 26.3 L, MCV 90.4, MCH 30.7, MCHC 34.0, RDW 13.1, Plt Count 294, MPV 6.9 L, Neutrophils % 52.8, Lymphocytes % 33.0, Monocytes % 11.0, Eosinophils % 2.8, Basophils % 0.4, Absolute Neutrophils 4.3, Absolute Lymphocytes 2.7, Absolute Monocytes 0.9, Absolute Eosinophils 0.2, Absolute Basophils 0.0 Microbiology Results 05/06/23 03:34 Stool Culture & Sensitivity - Preliminary 05/05/23 12:37 Blood - Blood Aerobic Blood Culture - Preliminary No growth in 24 hours. 05/05/23 12:37 Blood - Blood Anaerobic Blood Culture - Preliminary No growth in 24 hours. 05/05/23 12:37 Blood - Blood Aerobic Blood Culture - Preliminary No growth in 24 hours. 05/05/23 12:37 Blood - Blood Anaerobic Blood Culture - Preliminary No growth in 24 hours. Assessment/ Plan: Nephrology No dyspnea No chest pain +Appetite +Diarrhea No acute events overnight Vitals, medications, blood work and imaging reviewed in the chart. NAD. NCAT. MMM. Neck supple. Normal respiratory effort/ CTA. RRR. Abd ND. No C/C. LE Edema none. No rash. AAO. Normal speech. Stage I PAUL CKD II -No NSAIDs Hypokalemia -Replete potassium prn Hyperglycemia A1C 5.7 -No sugar diet Hypocalcemia -Continue Ergo -Continue Calcitriol Anemia in chronic illness -Monitor H&H -PRBC prn C.diff Colitis -ID following 05/05/23 05/05/23 05/05/23 03:20 03:20 20:01 Hgb 1.09 H Est GFR (CKD-EPI) 56 L Glucose 122 H Calcium 7.7 L D Magnesium 1.6 Urine Color Light-yellow Urine Clarity Clear Urine pH 6.0 Ur Specific [place] 1.018 Glucose (UA)(Auto) Negative Urine Ketones Trace H Urine Blood 2+ H Urine Nitrite Negative Urine Bilirubin Negative Urine Urobilinogen Normal Ur Leukocyte Esterase Negative Urine RBC 11-20 H Urine WBC <5 Ur Squamous Epith Cells <5 Urine Bacteria None seen Urine Mucus Slight Urine Yeast (Budding) Trace H Urine Culture Reflexed Not needed Urine Total Protein 1+ H
[2023-05-08] MEDS: ATORVASTATIN 10 MG TAB PO SCH (21:56)
[2023-05-09] MEDS: VANCOMYCIN ORAL SOLN 250 MG/5 ML OSYR PO SCH ×4 (00:54→17:49)
[2023-05-09 03:47] LABS: Hematocrit 29.3 % (36.0-45.0); MCV 90.5 fL (80-100); MPV 7.4 fL (7.6-11.3); RBC Red Blood Cell Count 3.24 M/uL (3.86-4.86)
[2023-05-09 04:06] LABS: Albumin 2.7 g/dL (3.4-5.0); Bilirubin Total 0.4 mg/dL (0.2-1.0); Magnesium 1.7 mg/dL (1.6-2.4); Potassium 3.7 mEq/L (3.5-5.1); Protein, Total 6.2 g/dL (6.4-8.2)
--- NOTE | 2023-05-09 06:56 | P.PN ---
Date of Service: 05/09/23 Subjective: 6-8 loose BMs in last 24hrs feels like overall slight improvement no new symptoms cramping slightly improved getting up to bathroom on own, slowly, with walker ROS: 10 point ROS as noted above, otherwise negative Physical Exam: GEN: Alert, oriented, NAD CV: Regular rate and rhythm, no edema Pulm: Non-labored respirations on room air, clear bilaterally ABD: Soft, mild tenderness in periumbilical region, non-distended MSK: mild L hip discomfort on palpation Integumentary: surgical dressing c/d/i Neuro: Normal speech, normal affect vitals reviewed Problem List: C. diff colitis Left hip osteoarthritis, s/p Left hip arthroplasty (05/03) PAUL on CKD Hypertension Hyperlipidemia Glaucoma\Keratitis Iron Def Anemia, chronic C. diff colitis diarrhea began 05/05 evening, after having fever suspect secondary to Augmentin use - over past week for possible UTI possibly cause of fever 05/05 AM, however was asymptomatic, and CXR noted atelectasis started PO vanc (05/06 - ~04/15), will need 10 days treatment monitor diarrhea, IVF if needed if no further improvement in next ~24hrs, consider change in abx ID consulted improving slightly 05/08, still >5 / 24hrs Left hip osteoarthritis, s/p Left hip arthroplasty (05/03) s/p Left hip arthroplasty 05/[address] Adhikari PT/OT consult pain medication as needed lives alone, states went to [facility] after last hip done in january; again, feels unsafe going home at this time, asking about SNF a few days ago, on 05/08 reported feeling improvement, and may be able to go home if improves more re-eval with PT PAUL on CKD resolved after IVF and holding ACEI-HCTZ, Nephrology consulted continue to monitor renal function hold home lisinopril-HCTZ given IVF 05/06, DCd Hypertension low-normal holding lisinopril-hctz Hyperlipidemia - Continue statin. Glaucoma\Keratitis - Continue home medications. Iron Def Anemia, chronic - Continue ferrous sulfate. monitor H&H VTE: Lovenox Code: Full Dispo: SNF vs home, pending further improvement of diarrhea, Patient initially requested SNF, was recently at [facility] after last hospitalization ss/cm consulted
[2023-05-09] MEDS ORDERED: MAGNESIUM SULFATE 1 gm IVPB 1 GM/100 ML BAG IV ONE (09:00)
[2023-05-09] MEDS: TIMOLOL MALEATE OPTH SCH ×2 (09:00→20:29)
[2023-05-09] MEDS: GLYCERIN OPTH SCH ×2 (09:00→20:29)
[2023-05-09] MEDS ORDERED: POTASSIUM CL SA 10 MEQ TAB PO ONE (09:00)
[2023-05-09] MEDS: [UNRECOGNIZED DRUG - OTHER] OPTH SCH ×2 (09:00→20:29)
[2023-05-09] MEDS: DOCUSATE NA 100 MG CAP PO SCH (09:00)
--- NOTE | 2023-05-09 09:13 | P.PN ---
Date of Service: 05/09/23 Chief Complaint: Left hip pain s\P left hip arthroplasty Subjective: Patient seen and examined at bedside. Sitting on side of bed, A&Ox3, breathing comfortably on room air. Reports no improvement in diarrhea. Physical Examination Temp Pulse Resp BP Pulse Ox 97.0 F 82 16 116/66 97 05/09/23 08:00 05/09/23 08:00 05/09/23 08:00 05/09/23 08:00 05/09/23 08:00 General: Alert, In no apparent distress, Oriented x3 HEENT: Atraumatic, Normocephalic Neck: Supple, JVD not distended Respiratory: Clear to auscultation bilaterally, Normal air movement Cardiovascular: Normal pulses, RRR. Gastrointestinal: Hyperactive Musculoskeletal: No clubbing, No swelling Integumentary: No rashes, No breakdown. s/p hip arthroplasty Neurological: Normal speech, Normal tone, Normal affect Laboratory Data - Reviewed Microtbiology Data - Reviewed Imagings Data: - Reviewed Medication List: Reviewed Assessment and Plan Problem List C. diff colitis Anemia Osteoarthritis Hypertension Hyperlipidemia Glaucoma Moderate PCM *Allergies: banana, levofloxacin, sulfa* C. difficile Infection - C.diff antigen = positive , toxin = positive - On Vancomycin PO (05/06) - On probiotic - Stool studies pending Blood cultures 05/05: No growth to date No leukocytosis (WBC 9.7) Afebrile Recommendations - Continue Vancomycin PO x 10 days (started 05/06). - Currently day 4 of 10 - Added Questran 05/09. If no improvement in diarrhea, within 24-48 hours, consider switching from Vancomycin to Dificid PO. - Patient with decreased appetite, provide nutritional support as needed. Ma intain adequate hydration. ID will follow up with patient as needed. Case discussed with Junior Zaldivar
[2023-05-09] MEDS: ENOXAPARIN 40 MG/0.4 ML SQ SCH (09:29)
[2023-05-09] MEDS: MULTIVITAMIN TAB PO SCH (09:29)
[2023-05-09] MEDS: ASPIRIN 81 MG CHEWABLE TABLET PO SCH (09:30)
[2023-05-09] MEDS: FERROUS SULFATE 325 MG TAB PO SCH (09:30)
[2023-05-09] MEDS: CYANOCOBALAMIN 1,000 MCG TAB PO SCH (09:30)
[2023-05-09] MEDS: CALCITROL 0.25 MCG CAP PO SCH (09:30)
[2023-05-09] MEDS: LACTOBACILLUS/ACIDOPHILUS TAB PO SCH (09:33)
[2023-05-09] MEDS: CHOLESTYRAMINE/ASP 4 GM/PKT PO SCH (17:49)
[2023-05-09] MEDS: ATORVASTATIN 10 MG TAB PO SCH (20:29)
--- NOTE | 2023-05-09 22:16 | P.PN ---
Date of Service: 05/09/23 Vital Signs Temp Pulse Resp BP Pulse Ox 97.9 F 75 16 134/79 98 05/09/23 20:00 05/09/23 20:00 05/09/23 20:00 05/09/23 20:00 05/09/23 20:00 Medications Acetaminophen (Acetaminophen 325 Mg Tablet) 500 mg PO Q6H PRN PRN Reason: TEMP > 100' F Last Admin: 05/06/23 01:53 Dose: 500 mg Aspirin (Aspirin 81 Mg Chewable Tablet) 81 mg PO DAILY [facility] Last Admin: 05/09/23 09:30 Dose: 81 mg Atorvastatin Calcium (Atorvastatin 10 Mg Tab) 10 mg PO BEDTIME [facility] Last Admin: 05/09/23 20:29 Dose: 10 mg Calcitriol (Calcitrol 0.25 Mcg Cap) 0.5 mcg PO DAILY [facility] Last Admin: 05/09/23 09:30 Dose: 0.5 mcg Cholestyramine Resin (Cholestyramine/Asp 4 Gm/Pkt) 4 gm PO DAILY WITH BREAKFAST [facility] [place] Last Admin: 05/09/23 17:49 Dose: 4 gm Cyanocobalamin (Cyanocobalamin 1,000 Mcg Tab) 5,000 mcg PO DAILY [facility] [place] Last Admin: 05/09/23 09:30 Dose: 5,000 mcg Enoxaparin Sodium (Enoxaparin 40 Mg/0.4 Ml) 40 mg SQ DAILY [facility] [place] Last Admin: 05/09/23 09:29 Dose: 40 mg Ergocalciferol (Drisdol (Vitamin D=Ergocalciferol) 29260 Unit Cap) 50,000 unit PO Q7D [facility] Last Admin: 05/05/23 14:41 Dose: 50,000 unit Ferrous Sulfate (Ferrous Sulfate 325 Mg Tab) 325 mg PO DAILY [facility] [place] Last Admin: 05/09/23 09:30 Dose: 325 mg Home Med (Polysorbate 80/Glycerin [Refresh Dry Eye Therapy Drops]) 1 each OPTH BID [facility] Last Admin: 05/09/23 20:29 Dose: 1 each Home Med (Estradiol [Estrace]) 0.5 gm VAG SEECOM [facility] [place] Last Admin: 05/04/23 10:11 Dose: 0.5 gm Home Med (Timolol Maleate [Istalol]) 1 gtt OPTH BID [facility] Last Admin: 05/09/23 20:29 Dose: 1 gtt Hydralazine HCl (Hydralazine Hcl 20 Mg/Ml Vial) 10 mg IV Q6HP PRN PRN Reason: Titrate to SBP (MUST DEFINE) Lactobacillus Acidoph/[place]icus (Lactobacillus/Acidophilus Tab) 1 tab PO DAILY [facility] [place] Last Admin: 05/09/23 09:33 Dose: 1 tab Multivitamins/Minerals (Multivitamin Tab) 1 tab PO DAILY [facility] Last Admin: 05/09/23 09:29 Dose: 1 tab Ondansetron HCl (Ondansetron 4 Mg/2 Ml Vial) 4 mg IV Q6H PRN PRN Reason: NAUSEA / VOMITING Sodium Chloride (Flush Normal Saline 10 Ml) 10 ml IV BID [facility] Last Admin: 05/09/23 20:29 Dose: 10 ml Vancomycin HCl (Vancomycin Oral Soln 250 Mg/5 Ml [place]) 125 mg PO Q6HR [facility]; Protocol Last Admin: 05/09/23 17:49 Dose: 125 mg Lab Results (last 24 hrs) 05/09/23 05:00: Magnesium Cancelled 05/09/23 02:54: Sodium 138, Potassium 3.7, Chloride 110 H, Carbon Dioxide 22, Anion Gap 9.7, BUN 20 H, Creatinine 0.90, Est GFR (CKD-EPI) 71 L, Glucose 93, Calcium 8.5, Magnesium 1.7, Total Bilirubin 0.4, AST 29, ALT 31, Alkaline Phosphatase 48, Serum Total Protein 6.2 L, Albumin 2.7 L, Globulin 3.5, Albumin/Globulin Ratio 0.8 L 05/09/23 02:54: WBC 10.00, RBC 3.24 L, Hgb 9.9 L D, Hct 29.3 L, MCV 90.5, MCH 30.6, MCHC 33.8, RDW 13.0, Plt Count 321, MPV 7.4 L Microbiology Results 05/06/23 03:34 Stool Culture & Sensitivity - Final 05/05/23 12:37 Blood - Blood Aerobic Blood Culture - Preliminary No growth in 24 hours. 05/05/23 12:37 Blood - Blood Anaerobic Blood Culture - Preliminary No growth in 24 hours. 05/05/23 12:37 Blood - Blood Aerobic Blood Culture - Preliminary No growth in 24 hours. 05/05/23 12:37 Blood - Blood Anaerobic Blood Culture - Preliminary No growth in 24 hours. Assessment/ Plan: Nephrology No dyspnea No chest pain +Appetite +Diarrhea +Fatigue No acute events overnight Vitals, medications, blood work and imaging reviewed in the chart. NAD. NCAT. MMM. Neck supple. Normal respiratory effort/ CTA. RRR. Abd ND. No C/C. LE Edema none. No rash. AAO. Normal speech. Stage I PAUL CKD II -No NSAIDs Hypokalemia -Replete potassium prn Hyperglycemia A1C 5.7 -No sugar diet Hypocalcemia -Continue Ergo -Continue Calcitriol Anemia in chronic illness -Monitor H&H -PRBC prn C.diff Colitis -ID following 05/05/23 05/05/23 05/05/23 03:20 03:20 20:01 Hgb 1.09 H Est GFR (CKD-EPI) 56 L Glucose 122 H Calcium 7.7 L D Magnesium 1.6 Urine Color Light-yellow Urine Clarity Clear Urine pH 6.0 Ur Specific [place] 1.018 Glucose (UA)(Auto) Negative Urine Ketones Trace H Urine Blood 2+ H Urine Nitrite Negative Urine Bilirubin Negative Urine Urobilinogen Normal Ur Leukocyte Esterase Negative Urine RBC 11-20 H Urine WBC <5 Ur Squamous Epith Cells <5 Urine Bacteria None seen Urine Mucus Slight Urine Yeast (Budding) Trace H Urine Culture Reflexed Not needed Urine Total Protein 1+ H
[2023-05-10] MEDS: VANCOMYCIN ORAL SOLN 250 MG/5 ML OSYR PO SCH ×4 (00:12→17:51)
[2023-05-10 03:42] LABS: Hematocrit 27.3 % (36.0-45.0); MCV 91.9 fL (80-100); MPV 6.3 fL (7.6-11.3); RBC Red Blood Cell Count 2.97 M/uL (3.86-4.86)
[2023-05-10 04:02] LABS: Albumin 2.8 g/dL (3.4-5.0); Bilirubin Total 0.4 mg/dL (0.2-1.0); Magnesium 1.8 mg/dL (1.6-2.4); Potassium 4.2 mEq/L (3.5-5.1); Protein, Total 6.2 g/dL (6.4-8.2)
[2023-05-10] MEDS: CHOLESTYRAMINE/ASP 4 GM/PKT PO SCH (08:09)
[2023-05-10] MEDS: [UNRECOGNIZED DRUG - OTHER] OPTH SCH ×2 (09:00→20:40)
[2023-05-10] MEDS: TIMOLOL MALEATE OPTH SCH ×2 (09:00→20:39)
[2023-05-10] MEDS: MAGNESIUM SULFATE 1 gm IVPB 1 GM/100 ML BAG IV ONE ×2 (09:00→10:08)
[2023-05-10] MEDS: GLYCERIN OPTH SCH ×2 (09:00→20:40)
--- NOTE | 2023-05-10 09:06 | P.PN ---
Date of Service: 05/10/23 Chief Complaint: Left hip pain s\P left hip arthroplasty Subjective: No new changes. Patient sitting on side of bed, A&Ox3, breathing comfortably on room air. Reports continued diarrhea. No acute events reported overnight. Physical Examination Temp Pulse Resp BP Pulse Ox 97.3 F 68 16 125/68 99 05/10/23 08:00 05/10/23 08:00 05/10/23 08:00 05/10/23 08:00 05/10/23 08:00 General: Alert, In no apparent distress, Oriented x3 HEENT: Atraumatic, Normocephalic Neck: Supple, JVD not distended Respiratory: Clear to auscultation bilaterally, Normal air movement. On room air. Cardiovascular: Normal pulses, RRR. Gastrointestinal: Hyperactive. Soft, Non-distended. Musculoskeletal: No clubbing, No swelling Integumentary: No rashes, No breakdown. s/p hip arthroplasty Neurological: Normal speech, Normal tone, Normal affect Laboratory Data - Reviewed Microtbiology Data - Reviewed Imagings Data: - Reviewed Medication List: Reviewed Assessment and Plan Problem List C. diff colitis Anemia Osteoarthritis Hypertension Hyperlipidemia Glaucoma Moderate PCM *Allergies: banana, levofloxacin, sulfa* C. difficile Infection - C.diff antigen: Positive , Toxin: positive - On Vancomycin PO (started 05/06) - On probiotic and questran - Stool culture 05/06: No salmonella, shigella or campylobacter isolated Blood cultures 05/05: No growth to date No leukocytosis (WBC 9.1). Afebrile Recommendations - Continue Vancomycin PO x 10 days (started 05/06). Currently day 5 of 10 - Questran added 05/09. If still no improvement in diarrhea within 24-48 hours, consider switching from Vancomycin to Dificid PO. - Provide supplemental nutrition as needed. Maintain adequate hydration. ID will follow up with patient as needed. Case discussed with Junior Zaldivar
[2023-05-10] MEDS: ENOXAPARIN 40 MG/0.4 ML SQ SCH (10:08)
[2023-05-10] MEDS: CYANOCOBALAMIN 1,000 MCG TAB PO SCH (10:08)
[2023-05-10] MEDS: ASPIRIN 81 MG CHEWABLE TABLET PO SCH (10:09)
[2023-05-10] MEDS: FERROUS SULFATE 325 MG TAB PO SCH (10:09)
[2023-05-10] MEDS: CALCITROL 0.25 MCG CAP PO SCH (10:09)
[2023-05-10] MEDS: LACTOBACILLUS/ACIDOPHILUS TAB PO SCH (10:09)
[2023-05-10] MEDS: MULTIVITAMIN TAB PO SCH (10:09)
--- NOTE | 2023-05-10 19:09 | P.PN ---
Subjective Date of Service: 05/10/23 Chief Complaint: Left hip pain s\P left hip arthroplasty Patient is sitting at the edge of the bed. She reported intermittent hip pain. She has been tolerating her diet. She denies diarrhea today and reports soft stool. Physical Examination - Vital Signs Temperature: 97.7 F Blood Pressure: 107/61 Pulse: 66 Respirations: 16 Pulse Ox (%): 95 - Studies Laboratory Data (last 24 hrs) 05/10/23 02:54: Sodium 140, Potassium 4.2 D, BUN 18, Creatinine 0.94, Glucose 101, Magnesium 1.8, Total Bilirubin 0.4, AST 29, ALT 46, Alkaline Phosphatase 56 05/10/23 02:54: WBC 9.10, Hgb 9.3 L, Hct 27.3 L, Plt Count 363 Microbiology Data (last 24 hrs): 05/05/23 12:37 Blood - Blood Aerobic Blood Culture - Final No growth in 5 days. 05/05/23 12:37 Blood - Blood Anaerobic Blood Culture - Final No growth in 5 days. 05/05/23 12:37 Blood - Blood Aerobic Blood Culture - Final No growth in 5 days. 05/05/23 12:37 Blood - Blood Anaerobic Blood Culture - Final No growth in 5 days. Assessment And Plan - Plan Physical Exam: GEN: Alert, oriented, NAD CV: Regular rate and rhythm, no edema Pulm: clear to auscultation bilaterally ABD: Soft, no tenderness, non-distended MSK: mild L hip discomfort on palpation Integumentary: surgical dressing c/d/i Neuro: No focal motor deficit. vitals reviewed Problem List: C. diff colitis Left hip osteoarthritis, s/p Left hip arthroplasty (05/03) PAUL on CKD Hypertension Hyperlipidemia Glaucoma\Keratitis Iron Def Anemia, chronic C. diff colitis diarrhea began 05/05 evening, after having fever suspect secondary to Augmentin use - over past week for possible UTI started PO vanc (05/06 - ~04/15), will need 10 days treatment Diarrhea improved. Patient is tolerating diet with good oral intake. ID input appreciated. Left hip osteoarthritis, s/p Left hip arthroplasty (05/03) s/p Left hip arthroplasty 05/[address] Adhikari PT/OT consult pain medication as needed lives alone, states she went to [facility] after last hip done in january; Patient is ambulating only in her room due to isolation for C. difficile. PAUL on CKD resolved after IVF and holding ACEI-HCTZ. Seen by nephrology continue to monitor renal function Continue to hold home lisinopril-HCTZ Hypertension low-normal holding lisinopril-hctz Hyperlipidemia - Continue statin. Glaucoma\Keratitis - Continue home medications. Iron Def Anemia, chronic - Continue ferrous sulfate. monitor H&H VTE: Lovenox Code: Full Dispo: SNF vs home. ss/cm consulted
--- NOTE | 2023-05-10 20:33 | P.PN ---
Date of Service: 05/10/23 Vital Signs Temp Pulse Resp BP Pulse Ox 97.7 F 66 16 107/61 95 05/10/23 19:09 05/10/23 19:09 05/10/23 19:09 05/10/23 19:09 05/10/23 19:09 Medications Acetaminophen (Acetaminophen 325 Mg Tablet) 500 mg PO Q6H PRN PRN Reason: TEMP > 100' F Last Admin: 05/06/23 01:53 Dose: 500 mg Aspirin (Aspirin 81 Mg Chewable Tablet) 81 mg PO DAILY [facility] Last Admin: 05/10/23 10:09 Dose: 81 mg Atorvastatin Calcium (Atorvastatin 10 Mg Tab) 10 mg PO BEDTIME [facility] Last Admin: 05/09/23 20:29 Dose: 10 mg Calcitriol (Calcitrol 0.25 Mcg Cap) 0.5 mcg PO DAILY [facility] Last Admin: 05/10/23 10:09 Dose: 0.5 mcg Cholestyramine Resin (Cholestyramine/Asp 4 Gm/Pkt) 4 gm PO DAILY WITH BREAKFAST [facility] Last Admin: 05/10/23 08:09 Dose: 4 gm Cyanocobalamin (Cyanocobalamin 1,000 Mcg Tab) 5,000 mcg PO DAILY [facility] Last Admin: 05/10/23 10:08 Dose: 5,000 mcg Enoxaparin Sodium (Enoxaparin 40 Mg/0.4 Ml) 40 mg SQ DAILY [facility] Last Admin: 05/10/23 10:08 Dose: 40 mg Ergocalciferol (Drisdol (Vitamin D=Ergocalciferol) 79287 Unit Cap) 50,000 unit PO Q7D [facility] Last Admin: 05/05/23 14:41 Dose: 50,000 unit Ferrous Sulfate (Ferrous Sulfate 325 Mg Tab) 325 mg PO DAILY [facility] Last Admin: 05/10/23 10:09 Dose: 325 mg Home Med (Polysorbate 80/Glycerin [Refresh Dry Eye Therapy Drops]) 1 each OPTH BID [facility] Last Admin: 05/10/23 09:00 Dose: 1 each Home Med (Estradiol [Estrace]) 0.5 gm VAG SEECOM [facility] Last Admin: 05/04/23 10:11 Dose: 0.5 gm Home Med (Timolol Maleate [Istalol]) 1 gtt OPTH BID [facility] Last Admin: 05/10/23 09:00 Dose: 1 gtt Hydralazine HCl (Hydralazine Hcl 20 Mg/Ml Vial) 10 mg IV Q6HP PRN PRN Reason: Titrate to SBP (MUST DEFINE) Lactobacillus Acidoph/Bulgaricus (Lactobacillus/Acidophilus Tab) 1 tab PO DAILY [facility] Last Admin: 05/10/23 10:09 Dose: 1 tab Multivitamins/Minerals (Multivitamin Tab) 1 tab PO DAILY [facility] Last Admin: 05/10/23 10:09 Dose: 1 tab Ondansetron HCl (Ondansetron 4 Mg/2 Ml Vial) 4 mg IV Q6H PRN PRN Reason: NAUSEA / VOMITING Sodium Chloride (Flush Normal Saline 10 Ml) 10 ml IV BID [facility] Last Admin: 05/10/23 10:10 Dose: 10 ml Vancomycin HCl (Vancomycin Oral Soln 250 Mg/5 Ml [place]) 125 mg PO Q6HR [facility]ON; Protocol Last Admin: 05/10/23 17:51 Dose: 125 mg Lab Results (last 24 hrs) 05/10/23 02:54: Sodium 140, Potassium 4.2 D, Chloride 111 H, Carbon Dioxide 24, Anion Gap 9.2, BUN 18, Creatinine 0.94, Est GFR (CKD-EPI) 67 L, Glucose 101, Calcium 9.0, Magnesium 1.8, Total Bilirubin 0.4, AST 29, ALT 46, Alkaline Phosphatase 56, Serum Total Protein 6.2 L, Albumin 2.8 L, Globulin 3.4, Albumin/Globulin Ratio 0.8 L 05/10/23 02:54: WBC 9.10, RBC 2.97 L, Hgb 9.3 L, Hct 27.3 L, MCV 91.9, MCH 31.2, MCHC 33.9, RDW 13.3, Plt Count 363, MPV 6.3 L 05/06/23 07:20: C. difficile Ag & Toxin Ag pos : tox pos A Microbiology Results 05/05/23 12:37 Blood - Blood Aerobic Blood Culture - Final No growth in 5 days. 05/05/23 12:37 Blood - Blood Anaerobic Blood Culture - Final No growth in 5 days. 05/05/23 12:37 Blood - Blood Aerobic Blood Culture - Final No growth in 5 days. 05/05/23 12:37 Blood - Blood Anaerobic Blood Culture - Final No growth in 5 days. 05/06/23 03:34 Stool Culture & Sensitivity - Final Assessment/ Plan: Nephrology No dyspnea No chest pain +Diarrhea +Fatigue No acute events overnight Vitals, medications, blood work and imaging reviewed in the chart. NAD. NCAT. MMM. Neck supple. Normal respiratory effort/ CTA. RRR. Abd ND. No C/C. LE Edema none. No rash. AAO. Normal speech. Stage I PAUL, resolved CKD II -No NSAIDs Hypokalemia -Replete potassium prn Hyperglycemia A1C 5.7 -No sugar diet Hypocalcemia -Continue Ergo -Continue Calcitriol Anemia in chronic illness -Monitor H&H -PRBC prn C.diff Colitis -ID following -Continue Abx 05/05/23 05/05/23 05/05/23 03:20 03:20 20:01 Hgb 1.09 H Est GFR (CKD-EPI) 56 L Glucose 122 H Calcium 7.7 L D Magnesium 1.6 Urine Color Light-yellow Urine Clarity Clear Urine pH 6.0 Ur Specific [place] 1.018 Glucose (UA)(Auto) Negative Urine Ketones Trace H Urine Blood 2+ H Urine Nitrite Negative Urine Bilirubin Negative Urine Urobilinogen Normal Ur Leukocyte Esterase Negative Urine RBC 11-20 H Urine WBC <5 Ur Squamous Epith Cells <5 Urine Bacteria None seen Urine Mucus Slight Urine Yeast (Budding) Trace H Urine Culture Reflexed Not needed Urine Total Protein 1+ H
[2023-05-10] MEDS: ATORVASTATIN 10 MG TAB PO SCH (20:40)
[2023-05-11] MEDS: VANCOMYCIN ORAL SOLN 250 MG/5 ML OSYR PO SCH ×4 (00:02→18:41)
[2023-05-11 03:24] LABS: Absolute Lymphocytes (CBC) 2.7 K/uL (0.7-4.9)
[2023-05-11 03:47] LABS: Magnesium 1.8 mg/dL (1.6-2.4); Potassium 4.1 mEq/L (3.5-5.1)
[2023-05-11 05:56] LABS: Hematocrit 26.9 % (36.0-45.0); Lymphocytes % 33.5 % (15.3-44.8); MCV 90.6 fL (80-100); MPV 6.9 fL (7.6-11.3); RBC Red Blood Cell Count 2.97 M/uL (3.86-4.86)
[2023-05-11 06:51] LABS: Platelet Estimate ADEQ; White Blood Cell Scan OK (OK)
[2023-05-11 06:52] LABS: Blood Morphology Comment NOT SEEN (NOT SEEN)
[2023-05-11] MEDS: CHOLESTYRAMINE/ASP 4 GM/PKT PO SCH (08:03)
[2023-05-11] MEDS: TIMOLOL MALEATE OPTH SCH ×2 (09:00→21:26)
[2023-05-11] MEDS: GLYCERIN OPTH SCH ×2 (09:00→21:00)
[2023-05-11] MEDS: [UNRECOGNIZED DRUG - OTHER] OPTH SCH ×2 (09:00→21:00)
--- NOTE | 2023-05-11 09:16 | P.PN ---
Date of Service: 05/11/23 Chief Complaint: Left hip pain s\P left hip arthroplasty Subjective: Diarrhea improving. Appetite improving. Patient denies any new or worsening complaints. No acute events reported overnight. Pending approval for [facility] Physical Examination Temp Pulse Resp BP Pulse Ox 97.5 F 66 16 112/57 L 98 05/11/23 08:00 05/11/23 08:00 05/11/23 08:00 05/11/23 08:00 05/11/23 08:00 General: Alert, In no apparent distress, Oriented x3 HEENT: Atraumatic, Normocephalic Neck: Supple, JVD not distended Respiratory: Clear to auscultation bilaterally, Normal air movement. On room air. Cardiovascular: Normal pulses, RRR. Gastrointestinal: Hyperactive. Soft, Non-distended. Musculoskeletal: No clubbing, No swelling Integumentary: No rashes, No breakdown. s/p hip arthroplasty Neurological: Normal speech, Normal tone, Normal affect Laboratory Data - Reviewed Microtbiology Data - Reviewed Imagings Data: - Reviewed Medication List: Reviewed Assessment and Plan Problem List C. diff colitis Anemia Osteoarthritis Hypertension Hyperlipidemia Glaucoma Moderate PCM *Allergies: banana, levofloxacin, sulfa* C. difficile Infection - C.diff antigen: Positive , Toxin: positive - On Vancomycin PO (started 05/06) - On probiotic and questran - Stool culture 05/06: No salmonella, shigella or campylobacter isolated Blood cultures 05/05: No growth to date No leukocytosis (WBC 8.2). Afebrile Recommendations - Continue Vancomycin PO x 10 days (started 05/06). - Currently day 6 of 10 - Provide supplemental nutrition as needed. Maintain adequate hydration. ID will follow up with patient as needed. Case discussed with Junior Zaldivar
[2023-05-11] MEDS: MULTIVITAMIN TAB PO SCH (09:54)
[2023-05-11] MEDS: LACTOBACILLUS/ACIDOPHILUS TAB PO SCH (09:54)
[2023-05-11] MEDS: ENOXAPARIN 40 MG/0.4 ML SQ SCH (09:54)
[2023-05-11] MEDS: CALCITROL 0.25 MCG CAP PO SCH (09:55)
[2023-05-11] MEDS: FERROUS SULFATE 325 MG TAB PO SCH (09:55)
[2023-05-11] MEDS: CYANOCOBALAMIN 1,000 MCG TAB PO SCH (09:55)
[2023-05-11] MEDS: ASPIRIN 81 MG CHEWABLE TABLET PO SCH (09:55)
--- NOTE | 2023-05-11 19:12 | P.PN ---
Subjective Date of Service: 05/11/23 Chief Complaint: Left hip pain s\P left hip arthroplasty Patient is sitting at the edge of the bed. She reported intermittent hip pain. She has no other complaints. Physical Examination - Vital Signs Temperature: 97.3 F Blood Pressure: 118/70 Pulse: 71 Respirations: 16 Pulse Ox (%): 98 - Studies Laboratory Data (last 24 hrs) 05/11/23 02:51: WBC 8.20, Hgb 9.1 L, Hct 26.9 L, Plt Count 405 05/11/23 02:51: Sodium 137, Potassium 4.1, BUN 21 H, Creatinine 1.08 H, Glucose 111 H, Magnesium 1.8 Assessment And Plan - Plan Physical Exam: GEN: Alert, oriented, NAD CV: Regular rate and rhythm, no edema Pulm: clear to auscultation bilaterally ABD: Soft, no tenderness, non-distended MSK: mild L hip discomfort on palpation Integumentary: surgical dressing c/d/i Neuro: No focal motor deficit. vitals reviewed Problem List: C. diff colitis Left hip osteoarthritis, s/p Left hip arthroplasty (05/03) PAUL on CKD Hypertension Hyperlipidemia Glaucoma\Keratitis Iron Def Anemia, chronic C. diff colitis diarrhea began 05/05 evening, after having fever suspect secondary to Augmentin use - over past week for possible UTI started PO vanc (05/06 - ~04/15), will need 10 days treatment Diarrhea resolved. Patient now experiencing soft BM. Patient is tolerating diet with good oral intake. ID is following Left hip osteoarthritis, s/p Left hip arthroplasty (05/03) s/p Left hip arthroplasty 05/[address] Adhikari PT/OT consult pain medication as needed lives alone. Patient was able to ambulate in the hallway but still has significant mobility issues according to PT. PAUL on CKD resolved after IVF and holding ACEI-HCTZ. Seen by nephrology continue to monitor renal function Continue to hold home lisinopril-HCTZ Hypertension Currently normotensive holding lisinopril-hctz Hyperlipidemia - Continue statin. Glaucoma\Keratitis - Continue home medications. Iron Def Anemia, chronic - Continue ferrous sulfate. monitor H&H VTE: Lovenox Code: Full Dispo: SNF. ss/cm is assisting with arrangement.
[2023-05-11] MEDS: ATORVASTATIN 10 MG TAB PO SCH (21:20)
--- NOTE | 2023-05-11 21:40 | P.PN ---
Date of Service: 05/11/23 Vital Signs Temp Pulse Resp BP Pulse Ox 97.5 F 75 18 114/64 99 05/11/23 20:00 05/11/23 20:00 05/11/23 20:00 05/11/23 20:00 05/11/23 20:00 Medications Acetaminophen (Acetaminophen 325 Mg Tablet) 500 mg PO Q6H PRN PRN Reason: TEMP > 100' F Last Admin: 05/06/23 01:53 Dose: 500 mg Aspirin (Aspirin 81 Mg Chewable Tablet) 81 mg PO DAILY [facility] Last Admin: 05/11/23 09:55 Dose: 81 mg Atorvastatin Calcium (Atorvastatin 10 Mg Tab) 10 mg PO BEDTIME [facility] Last Admin: 05/11/23 21:20 Dose: 10 mg Calcitriol (Calcitrol 0.25 Mcg Cap) 0.5 mcg PO DAILY [facility] Last Admin: 05/11/23 09:55 Dose: 0.5 mcg Cholestyramine Resin (Cholestyramine/Asp 4 Gm/Pkt) 4 gm PO DAILY WITH BREAKFAST [facility] Last Admin: 05/11/23 08:03 Dose: 4 gm Cyanocobalamin (Cyanocobalamin 1,000 Mcg Tab) 5,000 mcg PO DAILY [facility] Last Admin: 05/11/23 09:55 Dose: 5,000 mcg Enoxaparin Sodium (Enoxaparin 40 Mg/0.4 Ml) 40 mg SQ DAILY [facility] Last Admin: 05/11/23 09:54 Dose: 40 mg Ergocalciferol (Drisdol (Vitamin D=Ergocalciferol) 56822 Unit Cap) 50,000 unit PO Q7D [facility] Last Admin: 05/05/23 14:41 Dose: 50,000 unit Ferrous Sulfate (Ferrous Sulfate 325 Mg Tab) 325 mg PO DAILY [facility] Last Admin: 05/11/23 09:55 Dose: 325 mg Home Med (Polysorbate 80/Glycerin [Refresh Dry Eye Therapy Drops]) 1 each OPTH BID [facility] Last Admin: 05/11/23 21:00 Dose: 1 each Home Med (Estradiol [Estrace]) 0.5 gm VAG SEECOM [facility] Last Admin: 05/04/23 10:11 Dose: 0.5 gm Home Med (Timolol Maleate [Istalol]) 1 gtt OPTH BID [facility] Last Admin: 05/11/23 21:26 Dose: 1 gtt Hydralazine HCl (Hydralazine Hcl 20 Mg/Ml Vial) 10 mg IV Q6HP PRN PRN Reason: Titrate to SBP (MUST DEFINE) Lactobacillus Acidoph/Bulgaricus (Lactobacillus/Acidophilus Tab) 1 tab PO DAILY [facility] Last Admin: 05/11/23 09:54 Dose: 1 tab Multivitamins/Minerals (Multivitamin Tab) 1 tab PO DAILY [facility] Last Admin: 05/11/23 09:54 Dose: 1 tab Ondansetron HCl (Ondansetron 4 Mg/2 Ml Vial) 4 mg IV Q6H PRN PRN Reason: NAUSEA / VOMITING Sodium Chloride (Flush Normal Saline 10 Ml) 10 ml IV BID [facility] Last Admin: 05/11/23 21:20 Dose: 10 ml Vancomycin HCl (Vancomycin Oral Soln 250 Mg/5 Ml [place]) 125 mg PO Q6HR [facility]ON; Protocol Last Admin: 05/11/23 18:41 Dose: 125 mg Lab Results (last 24 hrs) 05/11/23 02:51: WBC 8.20, RBC 2.97 L, Hgb 9.1 L, Hct 26.9 L, MCV 90.6, MCH 30.6, MCHC 33.8, RDW 13.2, Plt Count 405, MPV 6.9 L, Neutrophils % 45.6, Lymphocytes % 33.5, Monocytes % 17.2 H, Eosinophils % 3.2, Basophils % 0.5, Absolute Neutrophils 3.7, Absolute Lymphocytes 2.7, Absolute Monocytes 1.4 H, Absolute Eosinophils 0.3, Absolute Basophils 0.0, Platelet Estimate Adeq, Morphology Comment Not seen, Smear Scan Ok 05/11/23 02:51: Sodium 137, Potassium 4.1, Chloride 107, Carbon Dioxide 26, Anion Gap 8.1, BUN 21 H, Creatinine 1.08 H, Est GFR (CKD-EPI) 57 L, Glucose 111 H, Calcium 8.9, Magnesium 1.8 Microbiology Results 05/05/23 12:37 Blood - Blood Aerobic Blood Culture - Final No growth in 5 days. 05/05/23 12:37 Blood - Blood Anaerobic Blood Culture - Final No growth in 5 days. 05/05/23 12:37 Blood - Blood Aerobic Blood Culture - Final No growth in 5 days. 05/05/23 12:37 Blood - Blood Anaerobic Blood Culture - Final No growth in 5 days. 05/06/23 03:34 Stool Culture & Sensitivity - Final Assessment/ Plan: Nephrology No dyspnea No chest pain +Soft Stool +Appetite No acute events overnight Vitals, medications, blood work and imaging reviewed in the chart. NAD. NCAT. MMM. Neck supple. Normal respiratory effort/ CTA. RRR. Abd ND. No C/C. LE Edema none. No rash. AAO. Normal speech. Stage I PAUL, resolved CKD II -No NSAIDs Hypokalemia -Replete potassium prn Hyperglycemia A1C 5.7 -No sugar diet Hypocalcemia -Continue Ergo -Continue Calcitriol Anemia in chronic illness -Monitor H&H -PRBC prn C.diff Colitis -ID following -Continue Abx 05/05/23 05/05/23 05/05/23 03:20 03:20 20:01 Hgb 1.09 H Est GFR (CKD-EPI) 56 L Glucose 122 H Calcium 7.7 L D Magnesium 1.6 Urine Color Light-yellow Urine Clarity Clear Urine pH 6.0 Ur Specific [place] 1.018 Glucose (UA)(Auto) Negative Urine Ketones Trace H Urine Blood 2+ H Urine Nitrite Negative Urine Bilirubin Negative Urine Urobilinogen Normal Ur Leukocyte Esterase Negative Urine RBC 11-20 H Urine WBC <5 Ur Squamous Epith Cells <5 Urine Bacteria None seen Urine Mucus Slight Urine Yeast (Budding) Trace H Urine Culture Reflexed Not needed Urine Total Protein 1+ H
[2023-05-12] MEDS: VANCOMYCIN ORAL SOLN 250 MG/5 ML OSYR PO SCH ×4 (00:27→16:59)
[2023-05-12] MEDS: CALCITROL 0.25 MCG CAP PO SCH (08:57)
[2023-05-12] MEDS: FERROUS SULFATE 325 MG TAB PO SCH (08:57)
[2023-05-12] MEDS: TIMOLOL MALEATE OPTH SCH ×2 (08:57→20:16)
[2023-05-12] MEDS: CYANOCOBALAMIN 1,000 MCG TAB PO SCH (08:58)
[2023-05-12] MEDS: [UNRECOGNIZED DRUG - OTHER] OPTH SCH ×2 (08:58→20:16)
[2023-05-12] MEDS: CHOLESTYRAMINE/ASP 4 GM/PKT PO SCH (08:58)
[2023-05-12] MEDS: ASPIRIN 81 MG CHEWABLE TABLET PO SCH (08:58)
[2023-05-12] MEDS: LACTOBACILLUS/ACIDOPHILUS TAB PO SCH (08:58)
[2023-05-12] MEDS: GLYCERIN OPTH SCH ×2 (08:58→20:16)
[2023-05-12] MEDS: ENOXAPARIN 40 MG/0.4 ML SQ SCH (08:58)
[2023-05-12] MEDS: MULTIVITAMIN TAB PO SCH (08:58)
--- NOTE | 2023-05-12 10:17 | P.PN ---
Date of Service: 05/12/23 Chief Complaint: Left hip pain s\P left hip arthroplasty Subjective: No new changes. Patient seen and examined at bedside. NAD. +left hip pain controlled with PRN pain medication. Improvement in appetite. Improvement in diarrhea. Physical Examination Temp Pulse Resp BP Pulse Ox 97.6 F 64 20 108/56 L 98 05/12/23 08:00 05/12/23 08:00 05/12/23 08:00 05/12/23 08:00 05/12/23 08:00 General: Alert, In no apparent distress, Oriented x3 HEENT: Atraumatic, Normocephalic Neck: Supple, JVD not distended Respiratory: Clear to auscultation bilaterally, Normal air movement. On room air. Cardiovascular: Normal pulses, RRR. Gastrointestinal: Hyperactive. Soft, Non-distended. Musculoskeletal: No clubbing, No swelling Integumentary: No rashes, No breakdown. s/p hip arthroplasty Neurological: Normal speech, Normal tone, Normal affect Laboratory Data - Reviewed Microtbiology Data - Reviewed Imagings Data: - Reviewed Medication List: Reviewed Assessment and Plan Problem List C. diff colitis Anemia Osteoarthritis Hypertension Hyperlipidemia Glaucoma Moderate PCM s/p left total hip arthroplasty *Allergies: banana, levofloxacin, sulfa* C. difficile Infection - C.diff antigen: Positive , Toxin: positive - On Vancomycin PO (started 05/06) - On probiotic and questran - Stool culture 05/06: No salmonella, shigella or campylobacter isolated - Diarrhea improving. Recorded formed stools. Blood cultures 05/05: No growth to date No leukocytosis (WBC 8.2 on 05/11). Afebrile Recommendations - C.difficile: Continue Vancomycin PO x 10 days (started 05/06). - Currently day 7 of 10 - Diarrhea improving - Continue supportive care and nutritional support as needed. ID will follow up with patient as needed. Case discussed with Junior Zaldivar
[2023-05-12] MEDS: DRISDOL (VITAMIN D=ERGOCALCIFEROL) 50000 UNIT CAP PO SCH (11:26)
--- NOTE | 2023-05-12 14:23 | P.PN ---
Subjective Date of Service: 05/12/23 Chief Complaint: Left hip pain s\P left hip arthroplasty Patient has no new complaint. She denies any diarrhea today. She has been finishing her meals. Physical Examination - Vital Signs Temperature: 97.6 F Blood Pressure: 108/56 Pulse: 64 Respirations: 20 Pulse Ox (%): 98 Assessment And Plan - Plan Physical Exam: GEN: Alert, oriented, NAD CV: Regular rate and rhythm, no edema Pulm: clear to auscultation bilaterally ABD: Soft, no tenderness, non-distended MSK: mild L hip discomfort on palpation Integumentary: surgical dressing c/d/i Neuro: No focal motor deficit. vitals reviewed Problem List: C. diff colitis Left hip osteoarthritis, s/p Left hip arthroplasty (05/03) PAUL on CKD Hypertension Hyperlipidemia Glaucoma\Keratitis Iron Def Anemia, chronic C. diff colitis diarrhea began 05/05 evening, after having fever suspect secondary to Augmentin use - over past week for possible UTI started PO vanc (05/06 - ~04/15), will need 10 days treatment Diarrhea resolved. Patient is tolerating diet with good oral intake. ID is following Left hip osteoarthritis, s/p Left hip arthroplasty (05/03) s/p Left hip arthroplasty 05/[address] Adhikari Patient is receiving PT. pain medication as needed lives alone. She ambulated about 250 feet with a walker with multiple stops today PAUL on CKD resolved after IVF and holding ACEI-HCTZ. Seen by nephrology continue to monitor renal function Continue to hold home lisinopril-HCTZ Hypertension Currently normotensive holding lisinopril-hctz Hyperlipidemia - Continue statin. Glaucoma\Keratitis - Continue home medications. Iron Def Anemia, chronic - Continue ferrous sulfate. monitor H&H VTE: Lovenox Code: Full Dispo: SNF. ss/cm is assisting with arrangement.
[2023-05-12] MEDS: ATORVASTATIN 10 MG TAB PO SCH (20:16)
--- NOTE | 2023-05-12 21:21 | P.PN ---
Date of Service: 05/12/23 Vital Signs Temp Pulse Resp BP Pulse Ox 97.2 F 118 H 18 116/65 96 05/12/23 20:00 05/12/23 20:00 05/12/23 20:00 05/12/23 20:00 05/12/23 20:00 Medications Acetaminophen (Acetaminophen 325 Mg Tablet) 500 mg PO Q6H PRN PRN Reason: TEMP > 100' F Last Admin: 05/06/23 01:53 Dose: 500 mg Aspirin (Aspirin 81 Mg Chewable Tablet) 81 mg PO DAILY [facility] Last Admin: 05/12/23 08:58 Dose: 81 mg Atorvastatin Calcium (Atorvastatin 10 Mg Tab) 10 mg PO BEDTIME [facility] Last Admin: 05/12/23 20:16 Dose: 10 mg Calcitriol (Calcitrol 0.25 Mcg Cap) 0.5 mcg PO DAILY [facility] Last Admin: 05/12/23 08:57 Dose: 0.5 mcg Cholestyramine Resin (Cholestyramine/Asp 4 Gm/Pkt) 4 gm PO DAILY WITH BREAKFAST [facility] Last Admin: 05/12/23 08:58 Dose: 4 gm Cyanocobalamin (Cyanocobalamin 1,000 Mcg Tab) 5,000 mcg PO DAILY [facility] Last Admin: 05/12/23 08:58 Dose: 5,000 mcg Enoxaparin Sodium (Enoxaparin 40 Mg/0.4 Ml) 40 mg SQ DAILY [facility] Last Admin: 05/12/23 08:58 Dose: 40 mg Ergocalciferol (Drisdol (Vitamin D=Ergocalciferol) 28013 Unit Cap) 50,000 unit PO Q7D [facility] Last Admin: 05/12/23 11:26 Dose: 50,000 unit Ferrous Sulfate (Ferrous Sulfate 325 Mg Tab) 325 mg PO DAILY [facility] Last Admin: 05/12/23 08:57 Dose: 325 mg Home Med (Polysorbate 80/Glycerin [Refresh Dry Eye Therapy Drops]) 1 each OPTH BID [facility] Last Admin: 05/12/23 20:16 Dose: 1 each Home Med (Estradiol [Estrace]) 0.5 gm VAG SEECOM [facility] Last Admin: 05/04/23 10:11 Dose: 0.5 gm Home Med (Timolol Maleate [Istalol]) 1 gtt OPTH BID [facility] Last Admin: 05/12/23 20:16 Dose: 1 gtt Hydralazine HCl (Hydralazine Hcl 20 Mg/Ml Vial) 10 mg IV Q6HP PRN PRN Reason: Titrate to SBP (MUST DEFINE) Lactobacillus Acidoph/Bulgaricus (Lactobacillus/Acidophilus Tab) 1 tab PO DAILY [facility] Last Admin: 05/12/23 08:58 Dose: 1 tab Multivitamins/Minerals (Multivitamin Tab) 1 tab PO DAILY [facility] Last Admin: 05/12/23 08:58 Dose: 1 tab Ondansetron HCl (Ondansetron 4 Mg/2 Ml Vial) 4 mg IV Q6H PRN PRN Reason: NAUSEA / VOMITING Sodium Chloride (Flush Normal Saline 10 Ml) 10 ml IV BID [facility] Last Admin: 05/12/23 20:17 Dose: 10 ml Vancomycin HCl (Vancomycin Oral Soln 250 Mg/5 Ml [place]) 125 mg PO Q6HR [facility]; Protocol Last Admin: 05/12/23 16:59 Dose: 125 mg Microbiology Results 05/05/23 12:37 Blood - Blood Aerobic Blood Culture - Final No growth in 5 days. 05/05/23 12:37 Blood - Blood Anaerobic Blood Culture - Final No growth in 5 days. 05/05/23 12:37 Blood - Blood Aerobic Blood Culture - Final No growth in 5 days. 05/05/23 12:37 Blood - Blood Anaerobic Blood Culture - Final No growth in 5 days. 05/06/23 03:34 Stool Culture & Sensitivity - Final Assessment/ Plan: Nephrology No dyspnea No chest pain +Soft Stool +Appetite No acute events overnight Vitals, medications, blood work and imaging reviewed in the chart. NAD. NCAT. MMM. Neck supple. Normal respiratory effort/ CTA. RRR. Abd ND. No C/C. LE Edema none. No rash. AAO. Normal speech. Stage I PAUL, resolved CKD II -No NSAIDs Hypokalemia -Replete potassium prn Hyperglycemia A1C 5.7 -No sugar diet Hypocalcemia -Continue Ergo -Continue Calcitriol Anemia in chronic illness -Monitor H&H -PRBC prn C.diff Colitis -ID following -Continue Abx 05/05/23 05/05/23 05/05/23 03:20 03:20 20:01 Hgb 1.09 H Est GFR (CKD-EPI) 56 L Glucose 122 H Calcium 7.7 L D Magnesium 1.6 Urine Color Light-yellow Urine Clarity Clear Urine pH 6.0 Ur Specific [place] 1.018 Glucose (UA)(Auto) Negative Urine Ketones Trace H Urine Blood 2+ H Urine Nitrite Negative Urine Bilirubin Negative Urine Urobilinogen Normal Ur Leukocyte Esterase Negative Urine RBC 11-20 H Urine WBC <5 Ur Squamous Epith Cells <5 Urine Bacteria None seen Urine Mucus Slight Urine Yeast (Budding) Trace H Urine Culture Reflexed Not needed Urine Total Protein 1+ H
[2023-05-13] MEDS: VANCOMYCIN ORAL SOLN 250 MG/5 ML OSYR PO SCH ×3 (00:29→11:52)
[2023-05-13 08:41] VITALS: BP 105/62; TEMP 97.9
[2023-05-13 08:51] VITALS: O2SAT 93
[2023-05-13] MEDS: TIMOLOL MALEATE OPTH SCH (08:59)
[2023-05-13] MEDS: CHOLESTYRAMINE/ASP 4 GM/PKT PO SCH (08:59)
[2023-05-13] MEDS: CYANOCOBALAMIN 1,000 MCG TAB PO SCH (09:00)
[2023-05-13] MEDS: FERROUS SULFATE 325 MG TAB PO SCH (09:00)
[2023-05-13] MEDS: [UNRECOGNIZED DRUG - OTHER] OPTH SCH (09:00)
[2023-05-13] MEDS: MULTIVITAMIN TAB PO SCH (09:00)
[2023-05-13] MEDS: CALCITROL 0.25 MCG CAP PO SCH (09:00)
[2023-05-13] MEDS: GLYCERIN OPTH SCH (09:00)
[2023-05-13] MEDS: ENOXAPARIN 40 MG/0.4 ML SQ SCH (09:00)
[2023-05-13] MEDS: LACTOBACILLUS/ACIDOPHILUS TAB PO SCH (09:00)
[2023-05-13] MEDS: ASPIRIN 81 MG CHEWABLE TABLET PO SCH (09:00)
[2023-05-13] MEDS: ACETAMINOPHEN 325 MG TABLET PO PRN (09:14)
--- NOTE | 2023-05-13 09:47 | P.PN ---
Date of Service: 05/13/23 Chief Complaint: Left hip pain s\P left hip arthroplasty Subjective: Improving. No new complaints. Patient sitting on side of bed breathing comfortably on room air. D/c to [facility] today. Physical Examination Temp Pulse Resp BP Pulse Ox 97.9 F 68 17 105/62 98 05/13/23 08:00 05/13/23 08:00 05/13/23 08:00 05/13/23 08:00 05/13/23 08:00 General: Alert, In no apparent distress, Oriented x3 HEENT: Atraumatic, Normocephalic Neck: Supple, JVD not distended Respiratory: Clear to auscultation bilaterally, Normal air movement. On room air. Cardiovascular: Normal pulses, RRR. Gastrointestinal: Hyperactive. Soft, Non-distended. Musculoskeletal: No clubbing, No swelling Integumentary: No rashes, No breakdown. s/p hip arthroplasty Neurological: Normal speech, Normal tone, Normal affect Laboratory Data - Reviewed Microtbiology Data - Reviewed Imagings Data: - Reviewed Medication List: Reviewed Assessment and Plan Problem List C. diff colitis Anemia Osteoarthritis Hypertension Hyperlipidemia Glaucoma Moderate PCM s/p left total hip arthroplasty *Allergies: banana, levofloxacin, sulfa* C. difficile Infection - C.diff antigen: Positive , Toxin: positive - On Vancomycin PO (started 05/06) - On probiotic and questran - Stool culture 05/06: No salmonella, shigella or campylobacter isolated - Diarrhea improving. Recorded formed stools. Blood cultures 05/05: No growth to date No leukocytosis (WBC 8.2 on 05/11). Afebrile Recommendations - C.difficile: Continue Vancomycin PO x 10 days (started 05/06). - Currently day 8 of 10 - Diarrhea improving - Continue supportive care and nutritional support as needed. Patient being discharged to [facility] today ID will follow up with patient as needed. Case discussed with Junior Zaldivar
--- NOTE | 2023-05-13 11:05 | P.DS ---
Admission Date: 05/05/23 Discharge Date: 05/13/23 Disposition: TRANSFER TO SNF - REHAB Discharge Condition: FAIR Reason for Admission: Left hip pain s\P left hip arthroplasty Brief History of Present Illness: Patient is a 67-year-old female with a past medical history significant for hypertension, osteoarthritis, hyperlipidemia, glaucoma who presents for a planned procedure-- left hip total replacement with Dr. Adhikari. Patient re ported that she has been having pain for quite some time now in her left hip and has attempted conservative management including physical therapy. Patient reported that she has been using occasional ibuprofen for pain management. Patient rated pain before the procedure as 10/10 in severity and described pain as aching in quality. Patient reported worsening pain in the left hip over time. Total hip arthroplasty done. Patient was admitted for postop monitoring. Hospital Course: Diagnosis C. diff colitis Left hip osteoarthritis, s/p Left hip arthroplasty (05/03) PAUL on CKD Hypertension Hyperlipidemia Glaucoma\Keratitis Iron Def Anemia, chronic C. diff colitis diarrhea began 05/05 evening, after having fever suspect secondary to Augmentin use for possible UTI before admit. started PO vanc (05/06 - ~04/15), will need 14 days treatment Diarrhea resolved. Patient is tolerating diet with good oral intake. ID saw patient and assisted with management. Left hip osteoarthritis, s/p Left hip arthroplasty (05/03) s/p Left hip arthroplasty 05/[address] Adhikari Patient received PT. pain medication as needed She lives alone. She ambulated about 250 feet with a walker with multiple stops today PAUL on CKD resolved after IVF. Seen by nephrology Lisinopril-HCTZ held during the hospital stay Hypertension Currently normotensive Held lisinopril-hctz during the hospital stay Hyperlipidemia - Continued statin. Glaucoma\Keratitis - Continued home medications. Iron Def Anemia, chronic - Continued ferrous sulfate. Hemoglobin was stable during the hospital stay. VTE: Lovenox during the hospital stay. Patient discharged with 2 more weeks of Xarelto and to continue with aspirin 162 mg daily. Vital Signs/Physical Exam: Temp Pulse Resp BP Pulse Ox 97.9 F 68 17 105/62 98 05/13/23 08:00 05/13/23 08:00 05/13/23 08:00 05/13/23 08:00 05/13/23 08:00 General: Alert, In no apparent distress, Oriented x3 HEENT: Mucous membr. moist/pink Neck: Supple, JVD not distended Respiratory: Clear to auscultation bilaterally, Normal air movement Cardiovascular: Regular rate/rhythm, Normal S1 S2 Gastrointestinal: Normal bowel sounds, Soft and benign, Non-distended, No te nderness Musculoskeletal: No swelling Integumentary: No rashes, No cyanosis Neurological: Normal strength at 5/5 x4 extr Laboratory Data at Discharge: WBC 8.20 thou/uL (4.3-10.9) 05/11/23 02:51 Hgb 9.1 g/dL (12.0-15.0) L 05/11/23 02:51 Hct 26.9 % (36.0-45.0) L 05/11/23 02:51 Plt Count 405 thou/uL (152-406) 05/11/23 02:51 PT 11.7 SECONDS (9.5-12.5) 05/04/23 03:08 INR 1.06 05/04/23 03:08 APTT 28.4 SECONDS (24.3-36.9) 04/28/23 10:30 Sodium 137 mEq/L (136-145) 05/11/23 02:51 Potassium 4.1 mEq/L (3.5-5.1) 05/11/23 02:51 BUN 21 mg/dL (7-18) H 05/11/23 02:51 Creatinine 1.08 mg/dL (0.55-1.02) H 05/11/23 02:51 Glucose 111 mg/dL (74-106) H 05/11/23 02:51 Phosphorus 3.6 mg/dL (2.5-4.9) 05/03/23 15:30 Magnesium 1.8 mg/dL (1.6-2.4) 05/11/23 02:51 Total Bilirubin 0.4 mg/dL (0.2-1.0) 05/10/23 02:54 AST 29 U/L (15-37) 05/10/23 02:54 ALT 46 U/L (13-56) 05/10/23 02:54 Alkaline Phosphatase 56 U/L (45-117) 05/10/23 02:54 Home Medications: Atorvastatin Calcium [Lipitor*] 10 mg PO BEDTIME 01/20/23 Estradiol [Estrace] 1 appl VG SEECOM 01/20/23 Timolol Maleate [Istalol] 1 gtt OP BID 01/20/23 Cyanocobalamin (Vitamin B-12) [Vitamin B12] 5,000 mcg PO DAILY #30 tab 02/01/23 Ferrous Sulfate 325 mg PO DAILY 04/28/23 Polysorbate 80/Glycerin [Refresh Dry Eye Therapy Drops] 1 each OP BID 04/28/23 Mv-Min/Iron/Folic/Calcium/Vitk [Women's Multivitamin Tablet] 1 each PO DAILY 05/03/23 Acetaminophen [Tylenol*] 500 mg PO Q6H PRN #0 tab 05/13/23 Calcitrol [Rocaltrol*] 0.5 mcg PO DAILY cap 05/13/23 Cholestyramine/Asp [Questran Light*] 4 gm PO DAILY WITH BREAKFAST packet 05/13/23 Hydrocodone 5/APAP 325 [Wood 5/325] 1 tab PO Q6H PRN #12 tab 05/13/23 Rivaroxaban [Xarelto] 10 mg PO DAILY #14 tab 05/13/23 Vancomycin Oral Soln [Vancocin HCl*] 5 ml PO Q6HR 8 Days osyr 05/13/23 Vitamin D [Drisdol*] 50,000 unit PO Q7D cap 05/13/23 New Medications: Hydrocodone 5/APAP 325 [Wood 5/325] 1 tab PO Q6H PRN #12 tab PRN Reason: Pain Rivaroxaban [Xarelto] 10 mg PO DAILY #14 tab Physician Discharge Instructions: . Diet: AHA Activity: Fall precautions Followup: Nerissa Gutiérrez NP [Primary Care Provider] - Dany Adhikari MD [ACTIVE - CAN ADMIT] - (Posterior hip precautions. Remove dressing only as needed. Medication sent electronically. F/U my office 2 weeks or sooner with problems) Time spent managing pt's care (in minutes): 35
--- NOTE | 2023-05-13 22:16 | P.PN ---
Date of Service: 05/13/23 Vital Signs Temp Pulse Resp BP Pulse Ox 97.9 F 68 17 105/62 98 05/13/23 08:00 05/13/23 08:00 05/13/23 08:00 05/13/23 08:00 05/13/23 08:00 Microbiology Results 05/05/23 12:37 Blood - Blood Aerobic Blood Culture - Final No growth in 5 days. 05/05/23 12:37 Blood - Blood Anaerobic Blood Culture - Final No growth in 5 days. 05/05/23 12:37 Blood - Blood Aerobic Blood Culture - Final No growth in 5 days. 05/05/23 12:37 Blood - Blood Anaerobic Blood Culture - Final No growth in 5 days. 05/06/23 03:34 Stool Culture & Sensitivity - Final Assessment/ Plan: Nephrology No dyspnea No chest pain +Soft Stool +Appetite No acute events overnight Vitals, medications, blood work and imaging reviewed in the chart. NAD. NCAT. MMM. Neck supple. Normal respiratory effort/ CTA. RRR. Abd ND. No C/C. LE Edema none. No rash. AAO. Normal speech. Stage I PAUL, resolved CKD II -No NSAIDs Hypokalemia -Replete potassium prn Hyperglycemia A1C 5.7 -No sugar diet Hypocalcemia -Continue Ergo -Continue Calcitriol Anemia in chronic illness -Monitor H&H -PRBC prn C.diff Colitis -ID following -Continue Abx 05/05/23 05/05/23 05/05/23 03:20 03:20 20:01 Hgb 1.09 H Est GFR (CKD-EPI) 56 L Glucose 122 H Calcium 7.7 L D Magnesium 1.6 Urine Color Light-yellow Urine Clarity Clear Urine pH 6.0 Ur Specific [place] 1.018 Glucose (UA)(Auto) Negative Urine Ketones Trace H Urine Blood 2+ H Urine Nitrite Negative Urine Bilirubin Negative Urine Urobilinogen Normal Ur Leukocyte Esterase Negative Urine RBC 11-20 H Urine WBC <5 Ur Squamous Epith Cells <5 Urine Bacteria None seen Urine Mucus Slight Urine Yeast (Budding) Trace H Urine Culture Reflexed Not needed Urine Total Protein 1+ H
== END 2023-05-13 15:12 | DRG 470 ==
LOC: OR 07:33 → 2ND 12:43 → OBSVTOIN 05-05 14:23
PROVIDERS: ADMIT Orthopaedic Surgery; ATTEND Orthopaedic Surgery
PROC: 0SRB0JZ Replacement of Left Hip Joint with Synthetic Substitute, Open Approach (ICD-10-PCS; principal; 2023-05-03 10:00)
DX: M16.12 Unilateral primary osteoarthritis, left hip (principal); N17.9 Acute kidney failure, unspecified; A04.72 Enterocolitis due to Clostridium difficile, not specified as recurrent; E44.0 Moderate protein-calorie malnutrition; E78.5 Hyperlipidemia, unspecified; H40.9 Unspecified glaucoma; H16.9 Unspecified keratitis; D50.9 Iron deficiency anemia, unspecified; I12.9 Hypertensive chronic kidney disease with stage 1 through stage 4 chronic kidney disease, or unspecified chronic kidney disease; N18.31 Chronic kidney disease, stage 3a; D63.1 Anemia in chronic kidney disease; E83.51 Hypocalcemia; E87.6 Hypokalemia; R73.9 Hyperglycemia, unspecified; Z60.2 Problems related to living alone; Z88.1 Allergy status to other antibiotic agents; Z68.29 Body mass index [BMI] 29.0-29.9, adult; Z79.82 Long term (current) use of aspirin; Z96.641 Presence of right artificial hip joint; Z91.013 Allergy to seafood; Z79.899 Other long term (current) drug therapy; Z87.891 Personal history of nicotine dependence
CPT/HCPCS: 36415; 71045; 80048; 80053; 81001; 83036; 83735; 84100; 84132; 85014; 85018; 85025; 85027; 85610; 85730; 86850; 86900; 86901; 86920; 87040; 87045; 87046; 87177; 87209; 87324; 88304; 88311; 93005; 94010; 97110; 97116; 97161; 97165; 97530; G0378; J0690; J1100; J1170; J1650; J2001; J2250; J2405; J2543; J2704; J3010; J3475; J3480; J7030; J7040; J7120

== ENCOUNTER 2024-08-24 08:38 | Day surgery (SDC) | payer MEDICARE, OTHER ==
[2024-08-24 08:47] LABS: Absolute Eosinophils 0.4 K/uL (0-0.5); Absolute Lymphocytes (CBC) 2.9 K/uL (0.7-4.9); Absolute Monocytes 0.7 K/uL (0.1-1.3); Basophils % 0.7 % (0-1.3); Eosinophils % 5.2 % (0-4.4); Hematocrit 40.1 % (36.0-45.0); Hemoglobin 13.7 g/dL (12.0-15.0); Lymphocytes % 42.2 % (15.3-44.8); MCH 31.9 pg (27.0-35.0); MCHC 34.1 g/dL (32.0-36.0); MCV 93.5 fL (80-100); MPV 6.5 fL (7.6-11.3); Monocytes % 9.4 % (3.3-12.3); Neutrophils % 42.5 % (41.7-73.7); Platelets 392 thou/uL (152-406); RBC Red Blood Cell Count 4.29 M/uL (3.86-4.86); Red Cell Distribution Width 12.1 % (12.1-15.2)
[2024-08-24] MEDS: Ringers Lactate 1,000 ML IV ONE (08:50)
[2024-08-24 09:06] LABS: Anion Gap 11.2 mEq/L (5.0-15.0); Potassium 3.2 mEq/L (3.5-5.1)
[2024-08-24] MEDS ORDERED: propofoL 200 MG/20 ML VIAL IV ONE (10:25)
[2024-08-24] MEDS ORDERED: LIDOCAINE 1% MPF 5 ML VIAL ONE (10:25)
[2024-08-24 12:53] VITALS: O2SAT 98
[2024-08-24 12:55] VITALS: BP 115/67; TEMP 97
--- NOTE | 2024-08-24 14:06 | EKG ---
Test Date: 2024-08-24 Test Time: 08:27:04 Sales Force Administrator: YASMANI MEASUREMENT RESULTS: Intervals: Rate: 56 AK: 156 QRSD: 78 QT: 432 QTc: 416 [place]: P: 39 AK: 156 QRS: -51 T: 9 INTERPRETIVE STATEMENTS: Sinus bradycardia Left anterior fascicular block Abnormal ECG Compared to ECG 04/28/2023 10:36:07 Sinus rhythm no longer present Electronically Signed On 08-24-24 14:05:33 CDT by Clemente Rose
== END 2024-08-24 11:30 | disposition home or self-care (01) ==
LOC: OR 08:38
PROVIDERS: ATTEND Surgery
PROC: 0DJD8ZZ Inspection of Lower Intestinal Tract, Via Natural or Artificial Opening Endoscopic (ICD-10-PCS; principal; 2024-08-24 10:15)
DX: Z12.11 Encounter for screening for malignant neoplasm of colon (principal); K57.30 Diverticulosis of large intestine without perforation or abscess without bleeding; K64.8 Other hemorrhoids
CPT/HCPCS: 93005; 85025; 80048; 36415; J2704; J2001; J7120; G0121